=== PATIENT | male | born 1960 | race Two or more races ===

== ENCOUNTER 2021-11-18 11:08 | Inpatient (IN) | payer MEDICAID ==
[~2021-11-18] VITALS: Ht 165.1 cm; Wt 77.1 kg
[2021-11-18 11:52] LABS: BASOPHILS % 0.7 % (0.0-2.0); EOSINOPHILS % 0.3 % (0.0-5.0); HEMATOCRIT. 33.9 % (42.0-52.0); HEMOGLOBIN. 11.5 g/dL (14.0-18.0); LYMPHOCYTES % 19.6 % (20.0-50.0); MEAN CORPUSCULAR HEMOGLOBIN 33.8 pg (28.0-32.0); MEAN CORPUSCULAR VOLUME 99.4 fL (80.0-94.0); MEAN PLATELET VOLUME 8.3 fl (7.4-10.4); MONOCYTES % 6.2 % (2.0-8.0); NEUTROPHILS % 73.2 % (40.0-76.0); PLATELET 245 x1000/uL (130-400); RED BLOOD CELL COUNT 3.41 mill/uL (4.7-6.1)
[2021-11-18 12:00] LABS: CHLORIDE 98 mEq/L (98-107)
[2021-11-18 13:46] LABS: CLARITY URINE TURBID (CLEAR); COLOR URINE YELLOW (YELLOW); KETONES URINE NEGATIVE (NEGATIVE); LEUKOCYTE ESTERASE URINE 3+ (NEGATIVE); NITRITE URINE NEGATIVE (NEGATIVE); OCCULT BLOOD URINE 2+ (NEGATIVE); PH URINE >=9.0 (4.5-8.0); PROTEIN URINE 3+ (NEGATIVE); SPECIFIC GRAVITY URINE 1.013 (1.005-1.030); UROBILINOGEN URINE 0.2 E.U./dL (0.2-1.0)
[2021-11-18] MEDS ORDERED: IPRATROPIUM/ALBUTEROL 0.5-3(2.5)MG/3ML NEB HHN PRN (15:15)
[2021-11-18] MEDS ORDERED: DIPHENHYDRAMINE 50MG/ML VIAL IV PRN (15:15)
[2021-11-18] MEDS ORDERED: ONDANSETRON HCL 4MG/2ML INJ IV PRN (15:15)
[2021-11-18] MEDS ORDERED: CEFTRIAXONE 1 G PREMIX 50 ML IV SCH (15:15)
[2021-11-18] MEDS ORDERED: ACETAMINOPHEN 325MG TABLET PO PRN (15:15)
[2021-11-18] MEDS: CEFTRIAXONE 1 G PREMIX 50 ML IV NR ×2 (15:24→18:00)
[2021-11-18 18:36] VITALS: BP 142/74
[2021-11-18 19:25] VITALS: BP 142/74
[2021-11-18] MEDS ORDERED: LORAZEPAM 2MG/ML CPJ IV SCH (22:45)
[2021-11-19] VITALS: BP 136/72
[2021-11-19 04:00] VITALS: BP 128/74
[2021-11-19 07:38] LABS: BASOPHILS % 0.5 % (0.0-2.0); EOSINOPHILS % 0.7 % (0.0-5.0); HEMATOCRIT. 36.1 % (42.0-52.0); HEMOGLOBIN. 12.1 g/dL (14.0-18.0); LYMPHOCYTES % 20.8 % (20.0-50.0); MEAN CORPUSCULAR HEMOGLOBIN 32.8 pg (28.0-32.0); MEAN CORPUSCULAR VOLUME 97.9 fL (80.0-94.0); MEAN PLATELET VOLUME 8.5 fl (7.4-10.4); MONOCYTES % 7.3 % (2.0-8.0); NEUTROPHILS % 70.7 % (40.0-76.0); PLATELET 217 x1000/uL (130-400); RED BLOOD CELL COUNT 3.69 mill/uL (4.7-6.1); RED CELL DISTRIBUTION WIDTH 16.6 % (11.6-14.6)
[2021-11-19 07:53] LABS: CHLORIDE 103 mEq/L (98-107)
[2021-11-19 08:00] VITALS: BP 126/73
[2021-11-19 10:18] LABS: FOLIC ACID (FOLATE) SERUM >20 ng/mL ng/mL (>5.38)
[2021-11-19 10:29] LABS: VITAMIN B12 SERUM 1023 pg/mL (211-911)
[2021-11-19 12:00] VITALS: BP 144/68
[2021-11-19 12:57] LABS: HEPATITIS B SURFACE ANTIGEN NEGATIVE
[2021-11-19] MEDS ORDERED: FLUPHENAZINE DECANOATE 25 MG/ML 5ML VIAL IM SCH (13:00)
[2021-11-19 13:05] LABS: HEPATITIS B SURFACE AB 14.2 mIU/mL
[2021-11-19 16:00] VITALS: BP 134/77
[2021-11-19] MEDS: CLONAZEPAM 0.5MG TABLET PO SCH (22:00)
[2021-11-20] MEDS: CLONAZEPAM 0.5MG TABLET PO SCH ×3 (05:00→22:57)
[2021-11-20 07:53] LABS: BASOPHILS % 0.5 % (0.0-2.0); EOSINOPHILS % 1.1 % (0.0-5.0); HEMATOCRIT. 26.1 % (42.0-52.0); LYMPHOCYTES % 24.3 % (20.0-50.0); MEAN CORPUSCULAR HEMOGLOBIN 33.6 pg (28.0-32.0); MEAN CORPUSCULAR VOLUME 97.2 fL (80.0-94.0); MEAN PLATELET VOLUME 8.7 fl (7.4-10.4); MONOCYTES % 9.3 % (2.0-8.0); NEUTROPHILS % 64.8 % (40.0-76.0); PLATELET 167 x1000/uL (130-400); RED BLOOD CELL COUNT 2.69 mill/uL (4.7-6.1); RED CELL DISTRIBUTION WIDTH 16.4 % (11.6-14.6)
[2021-11-20] MEDS ORDERED: POTASSIUM CHLORIDE 20MEQ TABLET SR PO SCH (10:30)
[2021-11-20] MEDS: CEFTRIAXONE 1,000 MG in DEXTROSE 5% WATER 50 ML IV SCH (11:18)
[2021-11-20 12:00] VITALS: BP 139/86
[2021-11-20 14:00] VITALS: BP 135/78
[2021-11-20 15:38] LABS: HEMOGLOBIN 9.5 g/dL (14.0-18.0)
[2021-11-20 16:00] VITALS: BP 135/78
[2021-11-20] MEDS: CLONIDINE 0.1MG TABLET PO PRN (18:39)
[2021-11-20] MEDS: SERTRALINE HCL 25MG TABLET PO SCH ×2 (18:45→18:47)
[2021-11-20] MEDS: DEXT 5%/0.45% NACL 1000ML 1,000 ML IV SCH ×3 (18:45→18:50)
[2021-11-20 20:00] VITALS: BP 129/76
[2021-11-21] VITALS: BP 138/80
[2021-11-21 04:00] VITALS: BP 139/71
[2021-11-21] MEDS: CLONAZEPAM 0.5MG TABLET PO SCH ×3 (06:00→21:12)
[2021-11-21 08:00] VITALS: BP 110/74
[2021-11-21 09:18] LABS: BASOPHILS % 0.4 % (0.0-2.0); EOSINOPHILS % 1.6 % (0.0-5.0); HEMATOCRIT. 29.6 % (42.0-52.0); HEMOGLOBIN. 10.1 g/dL (14.0-18.0); LYMPHOCYTES % 23.6 % (20.0-50.0); MEAN CORPUSCULAR HEMOGLOBIN 33.2 pg (28.0-32.0); MEAN CORPUSCULAR VOLUME 97.5 fL (80.0-94.0); MEAN PLATELET VOLUME 8.5 fl (7.4-10.4); NEUTROPHILS % 62.4 % (40.0-76.0); PLATELET 191 x1000/uL (130-400); RED BLOOD CELL COUNT 3.03 mill/uL (4.7-6.1); RED CELL DISTRIBUTION WIDTH 16.9 % (11.6-14.6)
[2021-11-21] MEDS: SERTRALINE HCL 25MG TABLET PO SCH (09:34)
[2021-11-21] MEDS: CEFTRIAXONE 1,000 MG in DEXTROSE 5% WATER 50 ML IV SCH (09:35)
[2021-11-21 12:00] VITALS: BP 129/59
[2021-11-21] MEDS: DEXT 5%/0.45% NACL 1000ML 1,000 ML IV SCH (14:00)
[2021-11-21 16:00] VITALS: BP 140/62
[2021-11-21 20:00] VITALS: BP 127/74
[2021-11-21] MEDS: HALOPERIDOL LACTATE 5MG/ML VIAL IM PRN (23:44)
[2021-11-22] VITALS: BP 124/76
[2021-11-22 04:00] VITALS: BP 126/79
[2021-11-22] MEDS: DEXT 5%/0.45% NACL 1000ML 1,000 ML IV SCH (04:10)
[2021-11-22] MEDS: CLONAZEPAM 0.5MG TABLET PO SCH ×3 (05:52→23:24)
[2021-11-22 08:00] VITALS: BP 127/100
[2021-11-22] MEDS: SERTRALINE HCL 25MG TABLET PO SCH (09:16)
[2021-11-22] MEDS: CEFTRIAXONE 1,000 MG in DEXTROSE 5% WATER 50 ML IV SCH (09:16)
[2021-11-22 09:28] LABS: BASOPHILS % 0.5 % (0.0-2.0); EOSINOPHILS % 1.7 % (0.0-5.0); HEMATOCRIT. 32.2 % (42.0-52.0); HEMOGLOBIN. 10.4 g/dL (14.0-18.0); LYMPHOCYTES % 30.8 % (20.0-50.0); MEAN CORPUSCULAR HEMOGLOBIN 32.6 pg (28.0-32.0); MEAN CORPUSCULAR VOLUME 100.7 fL (80.0-94.0); MEAN PLATELET VOLUME 8.4 fl (7.4-10.4); PLATELET 189 x1000/uL (130-400); RED CELL DISTRIBUTION WIDTH 16.8 % (11.6-14.6)
[2021-11-22 12:00] VITALS: BP 131/66
[2021-11-22 16:00] VITALS: BP 134/81
[2021-11-22] MEDS: HALOPERIDOL LACTATE 5MG/ML VIAL IM PRN (18:21)
[2021-11-22 20:00] VITALS: BP 99/61
[2021-11-23 04:00] VITALS: BP 99/61
[2021-11-23] MEDS: CLONAZEPAM 0.5MG TABLET PO SCH ×3 (06:35→22:05)
[2021-11-23 08:00] VITALS: BP 111/60
[2021-11-23] MEDS: SERTRALINE HCL 25MG TABLET PO SCH (09:22)
[2021-11-23 12:24] VITALS: BP 125/62
[2021-11-23] MEDS: HALOPERIDOL LACTATE 5MG/ML VIAL IM PRN ×2 (13:33→14:45)
[2021-11-23 16:00] VITALS: BP 135/84
[2021-11-23] MEDS ORDERED: LORAZEPAM 1MG TABLET PO PRN (16:45)
[2021-11-23] MEDS: LORAZEPAM 2MG/ML CPJ IM PRN (18:08)
[2021-11-23 20:00] VITALS: BP 135/75
[2021-11-24] VITALS: BP 169/92
[2021-11-24] MEDS: CLONIDINE 0.1MG TABLET PO PRN ×2 (01:08→06:10)
[2021-11-24] MEDS: HALOPERIDOL LACTATE 5MG/ML VIAL IM PRN (01:13)
[2021-11-24 04:00] VITALS: BP 150/66
[2021-11-24] MEDS: LORAZEPAM 2MG/ML CPJ IM PRN ×4 (04:13→22:14)
[2021-11-24] MEDS: CLONAZEPAM 0.5MG TABLET PO SCH ×2 (06:06→14:11)
[2021-11-24 06:08] LABS: BASOPHILS % 0.4 % (0.0-2.0); EOSINOPHILS % 1.8 % (0.0-5.0); HEMATOCRIT. 29.3 % (42.0-52.0); HEMOGLOBIN. 9.9 g/dL (14.0-18.0); LYMPHOCYTES % 26.5 % (20.0-50.0); MEAN CORPUSCULAR HEMOGLOBIN 33.3 pg (28.0-32.0); MEAN CORPUSCULAR VOLUME 98.9 fL (80.0-94.0); NEUTROPHILS % 60.3 % (40.0-76.0); PLATELET 184 x1000/uL (130-400); RED BLOOD CELL COUNT 2.96 mill/uL (4.7-6.1); RED CELL DISTRIBUTION WIDTH 16.6 % (11.6-14.6)
[2021-11-24 08:00] VITALS: BP 90/58
[2021-11-24] MEDS: SERTRALINE HCL 50MG TABLET PO SCH (09:47)
[2021-11-24 12:00] VITALS: BP_SYST 92; BP_SYST 94; BP_DIAS 53; BP_DIAS 63
[2021-11-24] MEDS: NICOTINE 21MG PATCH TD SCH (14:12)
[2021-11-24 16:00] VITALS: BP 92/53
[2021-11-24 20:00] VITALS: BP 143/85
[2021-11-25] VITALS: BP 144/81
[2021-11-25] MEDS: EPOETIN ALFA 10000UNITS/ML VIAL SUBCUT SCH (03:05)
[2021-11-25 04:00] VITALS: BP 125/76
[2021-11-25] MEDS: HALOPERIDOL LACTATE 5MG/ML VIAL IM PRN ×2 (06:12→16:31)
[2021-11-25 08:00] VITALS: BP 144/52
[2021-11-25] MEDS: SERTRALINE HCL 50MG TABLET PO SCH (08:48)
[2021-11-25] MEDS: LORAZEPAM 2MG/ML CPJ IM PRN (09:04)
[2021-11-25 12:00] VITALS: BP 135/88
[2021-11-25] MEDS: RISPERIDONE 0.25MG TABLET PO SCH ×2 (13:52→21:03)
[2021-11-25 16:00] VITALS: BP 140/81
[2021-11-25 18:25] LABS: BASOPHILS % 0.4 % (0.0-2.0); EOSINOPHILS % 0.5 % (0.0-5.0); HEMATOCRIT. 31.9 % (42.0-52.0); HEMOGLOBIN. 10.6 g/dL (14.0-18.0); MEAN CORPUSCULAR HEMOGLOBIN 33.1 pg (28.0-32.0); MEAN CORPUSCULAR VOLUME 99.7 fL (80.0-94.0); MEAN PLATELET VOLUME 7.9 fl (7.4-10.4); MONOCYTES % 9.7 % (2.0-8.0); NEUTROPHILS % 70.4 % (40.0-76.0); PLATELET 202 x1000/uL (130-400); RED CELL DISTRIBUTION WIDTH 16.6 % (11.6-14.6)
[2021-11-25 20:00] VITALS: BP 134/80
[2021-11-26] VITALS: BP 110/57
[2021-11-26 04:00] VITALS: BP 118/59
[2021-11-26 08:00] VITALS: BP 134/75
[2021-11-26 09:15] LABS: BASOPHILS % 0.5 % (0.0-2.0); EOSINOPHILS % 0.6 % (0.0-5.0); HEMATOCRIT. 31.4 % (42.0-52.0); HEMOGLOBIN. 10.4 g/dL (14.0-18.0); LYMPHOCYTES % 22.4 % (20.0-50.0); MEAN CORPUSCULAR HEMOGLOBIN 33.1 pg (28.0-32.0); MEAN CORPUSCULAR VOLUME 99.3 fL (80.0-94.0); MEAN PLATELET VOLUME 7.8 fl (7.4-10.4); MONOCYTES % 9.7 % (2.0-8.0); NEUTROPHILS % 66.8 % (40.0-76.0); PLATELET 202 x1000/uL (130-400); RED BLOOD CELL COUNT 3.16 mill/uL (4.7-6.1); RED CELL DISTRIBUTION WIDTH 16.2 % (11.6-14.6)
[2021-11-26] MEDS: SERTRALINE HCL 50MG TABLET PO SCH (09:58)
[2021-11-26] MEDS: NICOTINE 21MG PATCH TD SCH (09:59)
[2021-11-26] MEDS ORDERED: GENTAMICIN 120MG PREMIX 100 ML IV NR (10:00)
[2021-11-26] MEDS: RISPERIDONE 0.5MG TABLET PO SCH ×2 (10:03→20:55)
[2021-11-26 12:00] VITALS: BP 133/80
[2021-11-26 16:00] VITALS: BP 132/52
[2021-11-26] MEDS: HALOPERIDOL LACTATE 5MG/ML VIAL IM PRN (16:14)
[2021-11-26] MEDS: LORAZEPAM 2MG/ML CPJ IM PRN (20:50)
[2021-11-26] MEDS: EPOETIN ALFA 10000UNITS/ML VIAL SUBCUT SCH (20:51)
[2021-11-27] VITALS: BP 101/65
[2021-11-27 04:00] VITALS: BP 116/59
[2021-11-27] MEDS: LORAZEPAM 2MG/ML CPJ IM PRN (05:18)
[2021-11-27] MEDS: RISPERIDONE 0.5MG TABLET PO SCH ×2 (08:58→21:19)
[2021-11-27] MEDS: SERTRALINE HCL 50MG TABLET PO SCH (08:58)
[2021-11-27 11:33] LABS: BASOPHILS % 0.4 % (0.0-2.0); EOSINOPHILS % 0.7 % (0.0-5.0); HEMATOCRIT. 29.7 % (42.0-52.0); LYMPHOCYTES % 24.3 % (20.0-50.0); MEAN CORPUSCULAR HEMOGLOBIN 34.1 pg (28.0-32.0); MEAN PLATELET VOLUME 7.9 fl (7.4-10.4); MONOCYTES % 9.6 % (2.0-8.0); PLATELET 183 x1000/uL (130-400); RED BLOOD CELL COUNT 2.94 mill/uL (4.7-6.1); RED CELL DISTRIBUTION WIDTH 16.4 % (11.6-14.6)
[2021-11-27 12:00] VITALS: BP 113/70
[2021-11-27] MEDS: HALOPERIDOL LACTATE 5MG/ML VIAL IM PRN (12:36)
[2021-11-27 16:00] VITALS: BP 124/73
[2021-11-27 20:00] VITALS: BP 136/74
[2021-11-28] VITALS: BP 132/70
[2021-11-28] MEDS: LORAZEPAM 2MG/ML CPJ IM PRN ×2 (02:02→22:21)
[2021-11-28 04:00] VITALS: BP 130/68
[2021-11-28] MEDS: SERTRALINE HCL 50MG TABLET PO SCH (09:25)
[2021-11-28] MEDS: NICOTINE 21MG PATCH TD SCH (09:25)
[2021-11-28 12:00] VITALS: BP 116/68
[2021-11-28 16:00] VITALS: BP 137/92
[2021-11-28 17:34] LABS: BASOPHILS % 0.3 % (0.0-2.0); EOSINOPHILS % 0.8 % (0.0-5.0); HEMOGLOBIN. 9.9 g/dL (14.0-18.0); LYMPHOCYTES % 21.1 % (20.0-50.0); MEAN CORPUSCULAR HEMOGLOBIN 33.9 pg (28.0-32.0); MEAN PLATELET VOLUME 7.6 fl (7.4-10.4); MONOCYTES % 9.2 % (2.0-8.0); NEUTROPHILS % 68.6 % (40.0-76.0); PLATELET 195 x1000/uL (130-400); RED CELL DISTRIBUTION WIDTH 16.3 % (11.6-14.6)
[2021-11-28 18:52] LABS: GENTAMICIN RANDOM 0.7 ug/mL
[2021-11-28 20:00] VITALS: BP 144/83
[2021-11-28] MEDS ORDERED: GENTAMICIN 80MG PREMIX 100 ML IV SCH (21:00)
[2021-11-28] MEDS: RISPERIDONE 1MG TABLET PO SCH (21:00)
[2021-11-29] MEDS: EPOETIN ALFA-EPBX 10,000 UNIT/ML VIAL SUBCUT SCH (06:48)
[2021-11-29 08:00] VITALS: BP 113/53
[2021-11-29] MEDS: RISPERIDONE 1MG TABLET PO SCH ×2 (09:48→21:42)
[2021-11-29] MEDS: SERTRALINE HCL 50MG TABLET PO SCH (09:48)
[2021-11-29] MEDS: NICOTINE 21MG PATCH TD SCH (09:49)
[2021-11-29 12:00] VITALS: BP 126/66
[2021-11-29] MEDS ORDERED: GENTAMICIN 80MG PREMIX 100 ML IV SCH (12:00)
[2021-11-29 16:00] VITALS: BP 137/57
[2021-11-29 20:00] VITALS: BP 164/86
[2021-11-29] MEDS: CLONIDINE 0.1MG TABLET PO PRN (22:26)
[2021-11-30 08:00] VITALS: BP 127/74
[2021-11-30] MEDS: SERTRALINE HCL 50MG TABLET PO SCH (09:01)
[2021-11-30] MEDS: RISPERIDONE 1MG TABLET PO SCH ×2 (09:02→21:45)
[2021-11-30] MEDS: NICOTINE 21MG PATCH TD SCH (09:02)
[2021-11-30 12:00] VITALS: BP 109/61
[2021-11-30] MEDS: ZIPRASIDONE HCL 20MG CAPSULE PO SCH ×2 (14:24→21:44)
[2021-11-30 16:00] VITALS: BP 130/56
[2021-11-30 16:08] LABS: BASOPHILS % 0.3 % (0.0-2.0); EOSINOPHILS % 1.1 % (0.0-5.0); HEMATOCRIT. 27.8 % (42.0-52.0); HEMOGLOBIN. 9.3 g/dL (14.0-18.0); LYMPHOCYTES % 22.6 % (20.0-50.0); MEAN CORPUSCULAR HEMOGLOBIN 34.2 pg (28.0-32.0); MEAN PLATELET VOLUME 7.4 fl (7.4-10.4); MONOCYTES % 8.5 % (2.0-8.0); NEUTROPHILS % 67.5 % (40.0-76.0); PLATELET 180 x1000/uL (130-400); RED BLOOD CELL COUNT 2.73 mill/uL (4.7-6.1); RED CELL DISTRIBUTION WIDTH 16.8 % (11.6-14.6)
[2021-11-30 20:00] VITALS: BP 123/85
[2021-11-30] MEDS: CLONIDINE 0.1MG TABLET PO PRN (21:45)
[2021-12-01] VITALS: BP 119/76
[2021-12-01 07:07] LABS: BASOPHILS % 0.2 % (0.0-2.0); EOSINOPHILS % 1.7 % (0.0-5.0); HEMATOCRIT. 27.6 % (42.0-52.0); HEMOGLOBIN. 9.2 g/dL (14.0-18.0); LYMPHOCYTES % 26.2 % (20.0-50.0); MEAN CORPUSCULAR HEMOGLOBIN 33.9 pg (28.0-32.0); MEAN CORPUSCULAR VOLUME 101.8 fL (80.0-94.0); MEAN PLATELET VOLUME 7.5 fl (7.4-10.4); NEUTROPHILS % 62.9 % (40.0-76.0); PLATELET 187 x1000/uL (130-400); RED BLOOD CELL COUNT 2.71 mill/uL (4.7-6.1); RED CELL DISTRIBUTION WIDTH 16.4 % (11.6-14.6)
[2021-12-01 08:00] VITALS: BP 98/54
[2021-12-01 08:21] LABS: GENTAMICIN RANDOM 0.3 ug/mL
[2021-12-01] MEDS: ZIPRASIDONE HCL 20MG CAPSULE PO SCH ×2 (08:53→21:00)
[2021-12-01] MEDS: NICOTINE 21MG PATCH TD SCH (08:53)
[2021-12-01] MEDS: SERTRALINE HCL 50MG TABLET PO SCH (08:53)
[2021-12-01] MEDS: RISPERIDONE 1MG TABLET PO SCH ×2 (08:53→21:00)
[2021-12-01 12:00] VITALS: BP 93/52
[2021-12-01] MEDS: GENTAMICIN SULF 40MG/ML 2ML VIAL IM SCH ×2 (14:00→14:43)
[2021-12-01] MEDS ORDERED: GENTAMICIN 100MG PREMIX 50 ML IV SCH (14:00)
[2021-12-01 16:00] VITALS: BP 103/64
[2021-12-01 20:00] VITALS: BP 130/65
[2021-12-01] MEDS: EPOETIN ALFA-EPBX 10,000 UNIT/ML VIAL SUBCUT SCH (21:00)
[2021-12-02] VITALS: BP 124/62
[2021-12-02 04:00] VITALS: BP 121/68
[2021-12-02] MEDS ORDERED: HALOPERIDOL LACTATE 5MG/ML VIAL IM SCH (08:15)
[2021-12-02] MEDS: LORAZEPAM 2MG/ML CPJ IM PRN (08:21)
[2021-12-02] MEDS: ZIPRASIDONE HCL 20MG CAPSULE PO SCH ×2 (09:08→21:00)
[2021-12-02] MEDS: SERTRALINE HCL 50MG TABLET PO SCH (09:08)
[2021-12-02] MEDS: NICOTINE 21MG PATCH TD SCH (09:09)
[2021-12-02] MEDS: RISPERIDONE 1MG TABLET PO SCH ×2 (09:09→21:00)
[2021-12-02 12:00] VITALS: BP 126/67
[2021-12-02 16:00] VITALS: BP 145/66
[2021-12-02 20:00] VITALS: BP 157/81
[2021-12-03] VITALS: BP 154/75
[2021-12-03 08:00] VITALS: BP 132/63
[2021-12-03] MEDS: NICOTINE 21MG PATCH TD SCH (09:00)
[2021-12-03] MEDS: RISPERIDONE 1MG TABLET PO SCH (09:00)
[2021-12-03] MEDS: SERTRALINE HCL 50MG TABLET PO SCH (09:00)
[2021-12-03 10:57] LABS: HEMATOCRIT. 24.6 % (42.0-52.0); HEMOGLOBIN. 8.5 g/dL (14.0-18.0); MEAN CORPUSCULAR HEMOGLOBIN 34.4 pg (28.0-32.0); MEAN CORPUSCULAR VOLUME 100.1 fL (80.0-94.0); PLATELET 146 x1000/uL (130-400); RED BLOOD CELL COUNT 2.46 mill/uL (4.7-6.1); RED CELL DISTRIBUTION WIDTH 16.5 % (11.6-14.6)
[2021-12-03 12:00] VITALS: BP 138/50
[2021-12-03 12:07] LABS: PLATELET ESTIMATE NORMAL
[2021-12-03 16:00] VITALS: BP 148/90
[2021-12-03 16:31] LABS: HEMATOCRIT 27.3 % (42.0-52.0); HEMOGLOBIN 9.1 g/dL (14.0-18.0)
[2021-12-03] MEDS ORDERED: DILTIAZEM HCL 5MG/ML 5ML VIAL IV NR (17:00)
[2021-12-03 20:00] VITALS: BP 74/44
[2021-12-03] MEDS ORDERED: SODIUM CHLORIDE 0.9% 500 ML IV STA (21:15)
[2021-12-03] MEDS ORDERED: ALBUMIN HUMAN 25GM/100ML (25%) IV SCH (22:00)
[2021-12-04] VITALS (31 sets, daily range): BP systolic 76–180; BP diastolic 38–74
[2021-12-04] MEDS: EPOETIN ALFA-EPBX 10,000 UNIT/ML VIAL SUBCUT SCH (00:11)
[2021-12-04 06:25] LABS: BASOPHILS % 0.3 % (0.0-2.0); EOSINOPHILS % 0.1 % (0.0-5.0); HEMATOCRIT. 25.8 % (42.0-52.0); HEMOGLOBIN. 8.6 g/dL (14.0-18.0); LYMPHOCYTES % 8.1 % (20.0-50.0); MEAN CORPUSCULAR HEMOGLOBIN 34.2 pg (28.0-32.0); MEAN CORPUSCULAR VOLUME 102.9 fL (80.0-94.0); MEAN PLATELET VOLUME 7.6 fl (7.4-10.4); MONOCYTES % 9.7 % (2.0-8.0); NEUTROPHILS % 81.8 % (40.0-76.0); PLATELET 161 x1000/uL (130-400); RED BLOOD CELL COUNT 2.51 mill/uL (4.7-6.1)
[2021-12-04 07:19] LABS: T4 FREE 0.67 ng/dL (0.76-1.46)
[2021-12-04] MEDS: SERTRALINE HCL 50MG TABLET PO SCH ×2 (09:00→10:28)
[2021-12-04] MEDS: ZIPRASIDONE HCL 20MG CAPSULE PO SCH ×2 (09:00→20:49)
[2021-12-04] MEDS ORDERED: LEVOTHYROXINE SODIUM 25MCG TABLET PO SCH (09:00)
[2021-12-04] MEDS: DILTIAZEM HCL 30MG TABLET PO SCH ×4 (10:28→23:40)
[2021-12-04] MEDS: RISPERIDONE 1MG TABLET PO SCH ×2 (11:00→20:50)
[2021-12-04] MEDS: NICOTINE 21MG PATCH TD SCH (11:24)
[2021-12-04] MEDS: IRON SUCROSE COMPLEX 100 MG/5 ML ML IV SCH (13:52)
[2021-12-05] VITALS (13 sets, daily range): BP systolic 87–130; BP diastolic 36–76
[2021-12-05] MEDS: DILTIAZEM HCL 30MG TABLET PO SCH ×4 (05:35→23:39)
[2021-12-05 05:46] LABS: BASOPHILS % 0.1 % (0.0-2.0); EOSINOPHILS % 0.1 % (0.0-5.0); HEMOGLOBIN. 7.1 g/dL (14.0-18.0); LYMPHOCYTES % 11.4 % (20.0-50.0); MEAN CORPUSCULAR HEMOGLOBIN 34.6 pg (28.0-32.0); MEAN CORPUSCULAR VOLUME 99.3 fL (80.0-94.0); MEAN PLATELET VOLUME 8.2 fl (7.4-10.4); MONOCYTES % 12.4 % (2.0-8.0); PLATELET 125 x1000/uL (130-400); RED BLOOD CELL COUNT 2.05 mill/uL (4.7-6.1); RED CELL DISTRIBUTION WIDTH 16.4 % (11.6-14.6)
[2021-12-05 06:23] LABS: HEMATOCRIT. 20.3 % (42.0-52.0)
[2021-12-05] MEDS: LEVOTHYROXINE SODIUM 50MCG TABLET PO SCH (09:51)
[2021-12-05] MEDS: RISPERIDONE 1MG TABLET PO SCH ×2 (09:51→20:16)
[2021-12-05] MEDS: ZIPRASIDONE HCL 20MG CAPSULE PO SCH ×2 (09:51→20:16)
[2021-12-05] MEDS: NICOTINE 21MG PATCH TD SCH (09:52)
[2021-12-05] MEDS: IRON SUCROSE COMPLEX 100 MG/5 ML ML IV SCH (12:37)
[2021-12-05] MEDS: LORAZEPAM 2MG/ML CPJ IM PRN (20:17)
[2021-12-06] VITALS (7 sets, daily range): BP systolic 112–135; BP diastolic 51–81
[2021-12-06] MEDS: DILTIAZEM HCL 30MG TABLET PO SCH ×4 (05:25→23:23)
[2021-12-06 06:37] LABS: BASOPHILS % 0.1 % (0.0-2.0); EOSINOPHILS % 0.2 % (0.0-5.0); HEMATOCRIT. 25.8 % (42.0-52.0); HEMOGLOBIN. 8.6 g/dL (14.0-18.0); LYMPHOCYTES % 7.3 % (20.0-50.0); MEAN CORPUSCULAR HEMOGLOBIN 32.7 pg (28.0-32.0); MEAN CORPUSCULAR VOLUME 98.4 fL (80.0-94.0); MEAN PLATELET VOLUME 8.9 fl (7.4-10.4); MONOCYTES % 13.1 % (2.0-8.0); NEUTROPHILS % 79.3 % (40.0-76.0); PLATELET 165 x1000/uL (130-400); RED BLOOD CELL COUNT 2.62 mill/uL (4.7-6.1); RED CELL DISTRIBUTION WIDTH 18.6 % (11.6-14.6)
[2021-12-06] MEDS: ZIPRASIDONE HCL 20MG CAPSULE PO SCH ×2 (08:47→20:18)
[2021-12-06] MEDS: LEVOTHYROXINE SODIUM 50MCG TABLET PO SCH (08:47)
[2021-12-06] MEDS: RISPERIDONE 1MG TABLET PO SCH ×2 (08:48→20:18)
[2021-12-06] MEDS: NICOTINE 21MG PATCH TD SCH (08:49)
[2021-12-06] MEDS: SERTRALINE HCL 50MG TABLET PO SCH (08:49)
[2021-12-06] MEDS: DIVALPROEX SODIUM 250MG DR TABLET PO SCH ×2 (14:23→20:18)
[2021-12-06] MEDS: IRON SUCROSE COMPLEX 100 MG/5 ML ML IV SCH (15:39)
[2021-12-07] VITALS (7 sets, daily range): BP systolic 94–129; BP diastolic 48–81
[2021-12-07] MEDS: DILTIAZEM HCL 30MG TABLET PO SCH ×3 (06:00→17:24)
[2021-12-07] MEDS: RISPERIDONE 1MG TABLET PO SCH ×2 (09:31→21:05)
[2021-12-07] MEDS: ZIPRASIDONE HCL 20MG CAPSULE PO SCH ×2 (09:31→21:04)
[2021-12-07] MEDS: DIVALPROEX SODIUM 250MG DR TABLET PO SCH ×2 (09:31→21:04)
[2021-12-07] MEDS: NICOTINE 21MG PATCH TD SCH (09:31)
[2021-12-07] MEDS: LEVOTHYROXINE SODIUM 50MCG TABLET PO SCH (09:31)
[2021-12-07] MEDS: SERTRALINE HCL 50MG TABLET PO SCH (09:31)
[2021-12-07 14:54] LABS: HEPATITIS B SURFACE ANTIGEN NEGATIVE
[2021-12-07] MEDS ORDERED: FLUPHENAZINE DECANOATE 25 MG/ML 5ML VIAL IM NR (16:45)
[2021-12-07] MEDS: HALOPERIDOL LACTATE 5MG/ML VIAL IM PRN (17:24)
[2021-12-08] MEDS: HALOPERIDOL LACTATE 5MG/ML VIAL IM PRN (01:39)
[2021-12-08] MEDS: DILTIAZEM HCL 30MG TABLET PO SCH ×4 (06:00→18:00)
[2021-12-08 08:00] VITALS: BP 115/61
[2021-12-08] MEDS: DIVALPROEX SODIUM 250MG DR TABLET PO SCH ×2 (09:11→21:00)
[2021-12-08] MEDS: SERTRALINE HCL 50MG TABLET PO SCH (09:11)
[2021-12-08] MEDS: NICOTINE 21MG PATCH TD SCH (09:12)
[2021-12-08] MEDS: ZIPRASIDONE HCL 20MG CAPSULE PO SCH ×2 (09:12→21:00)
[2021-12-08] MEDS: LEVOTHYROXINE SODIUM 50MCG TABLET PO SCH (09:12)
[2021-12-08] MEDS: RISPERIDONE 1MG TABLET PO SCH ×2 (09:12→21:00)
[2021-12-08 12:00] VITALS: BP 101/59
[2021-12-08 16:00] VITALS: BP 109/54
[2021-12-08 16:13] LABS: BASOPHILS % 0.3 % (0.0-2.0); EOSINOPHILS % 0.3 % (0.0-5.0); HEMATOCRIT. 25.3 % (42.0-52.0); HEMOGLOBIN. 8.6 g/dL (14.0-18.0); LYMPHOCYTES % 10.6 % (20.0-50.0); MEAN CORPUSCULAR HEMOGLOBIN 33.2 pg (28.0-32.0); MEAN CORPUSCULAR VOLUME 97.7 fL (80.0-94.0); MEAN PLATELET VOLUME 8.4 fl (7.4-10.4); NEUTROPHILS % 81.8 % (40.0-76.0); PLATELET 293 x1000/uL (130-400); RED BLOOD CELL COUNT 2.59 mill/uL (4.7-6.1); RED CELL DISTRIBUTION WIDTH 18.2 % (11.6-14.6)
[2021-12-08 20:00] VITALS: BP 99/58
[2021-12-09] MEDS: HALOPERIDOL LACTATE 5MG/ML VIAL IM PRN ×2 (00:19→16:37)
[2021-12-09] MEDS: DILTIAZEM HCL 30MG TABLET PO SCH ×5 (06:00→23:56)
[2021-12-09] MEDS: LEVOTHYROXINE SODIUM 50MCG TABLET PO SCH (06:25)
[2021-12-09 08:00] VITALS: BP 98/77
[2021-12-09] MEDS: NICOTINE 21MG PATCH TD SCH (09:00)
[2021-12-09] MEDS: RISPERIDONE 1MG TABLET PO SCH ×2 (09:39→20:42)
[2021-12-09] MEDS: ZIPRASIDONE HCL 20MG CAPSULE PO SCH (09:39)
[2021-12-09] MEDS: SERTRALINE HCL 50MG TABLET PO SCH (09:39)
[2021-12-09 09:40] LABS: HEMATOCRIT. 28.1 % (42.0-52.0); HEMOGLOBIN. 9.3 g/dL (14.0-18.0); MEAN CORPUSCULAR HEMOGLOBIN 32.5 pg (28.0-32.0); MEAN CORPUSCULAR VOLUME 98.5 fL (80.0-94.0); MEAN PLATELET VOLUME 8.5 fl (7.4-10.4); PLATELET 361 x1000/uL (130-400); RED BLOOD CELL COUNT 2.85 mill/uL (4.7-6.1); RED CELL DISTRIBUTION WIDTH 18.5 % (11.6-14.6)
[2021-12-09] MEDS: DIVALPROEX SODIUM 250MG DR TABLET PO SCH ×2 (09:43→21:00)
[2021-12-09 10:15] LABS: PLATELET ESTIMATE NORMAL
[2021-12-09 11:26] LABS: INR 1.1; PARTIAL THROMBOPLASTIN TIME 28.4 sec (23.4-31.0); PROTHROMBIN TIME 11.6 sec (9.6-11.0)
[2021-12-09 12:00] VITALS: BP 113/80
[2021-12-09 16:00] VITALS: BP 132/80
[2021-12-09 20:00] VITALS: BP 93/57
[2021-12-09] MEDS: ZIPRASIDONE HCL 40MG CAPSULE PO SCH (20:43)
[2021-12-10] VITALS: BP 98/50
[2021-12-10] MEDS: HALOPERIDOL LACTATE 5MG/ML VIAL IM PRN ×2 (01:02→08:43)
[2021-12-10 04:00] VITALS: BP 99/54
[2021-12-10] MEDS: DILTIAZEM HCL 30MG TABLET PO SCH ×3 (06:00→17:30)
[2021-12-10] MEDS: LEVOTHYROXINE SODIUM 50MCG TABLET PO SCH (07:20)
[2021-12-10 08:00] VITALS: BP 119/75
[2021-12-10] MEDS ORDERED: CEFAZOLIN 1000MG PREMIX 50 ML IV NR (10:00)
[2021-12-10] MEDS ORDERED: LIDOCAINE HCL 1% 20ML VIAL (Pyxis) INJ ONE (10:04)
[2021-12-10] MEDS ORDERED: HEPARIN 1000 UNITS/ML 10ML ONE (10:04)
[2021-12-10] MEDS ORDERED: CEFAZOLIN 1000MG PREMIX 50 ML IV ONE (10:06)
[2021-12-10] MEDS ORDERED: PROPOFOL 200MG/20ML VIAL IV ONE (10:13)
[2021-12-10] MEDS ORDERED: GLYCOPYRROLATE 0.2 MG/ML 2ML VIAL ONE (11:02)
[2021-12-10] MEDS ORDERED: EPHEDRINE SULFATE 50MG/ML VIAL ONE (11:02)
[2021-12-10] MEDS ORDERED: VASOPRESSIN 20 UNIT/ML 1ML ONE (11:02)
[2021-12-10] MEDS ORDERED: CEFAZOLIN SODIUM 1000MG/VIAL ONE (11:02)
[2021-12-10] MEDS ORDERED: HALOPERIDOL LACTATE 5MG/ML VIAL IM NR (11:15)
[2021-12-10] MEDS: ZIPRASIDONE HCL 40MG CAPSULE PO SCH ×2 (14:17→21:37)
[2021-12-10] MEDS: RISPERIDONE 1MG TABLET PO SCH ×2 (14:17→21:37)
[2021-12-10] MEDS: DIVALPROEX SODIUM 250MG DR TABLET PO SCH ×2 (14:19→21:37)
[2021-12-10] MEDS: SERTRALINE HCL 50MG TABLET PO SCH (14:19)
[2021-12-10] MEDS: NICOTINE 21MG PATCH TD SCH (14:21)
[2021-12-10 16:00] VITALS: BP 123/66
[2021-12-10] MEDS: DOCUSATE SODIUM 100MG CAPSULE PO SCH (17:30)
[2021-12-10 20:00] VITALS: BP 100/52
[2021-12-11] VITALS (7 sets, daily range): BP systolic 86–125; BP diastolic 58–75
[2021-12-11] MEDS: DILTIAZEM HCL 30MG TABLET PO SCH ×4 (06:29→16:21)
[2021-12-11] MEDS: LEVOTHYROXINE SODIUM 50MCG TABLET PO SCH (06:29)
[2021-12-11 06:58] LABS: BASOPHILS % 0.2 % (0.0-2.0); EOSINOPHILS % 0.4 % (0.0-5.0); HEMATOCRIT. 26.5 % (42.0-52.0); HEMOGLOBIN. 9.1 g/dL (14.0-18.0); LYMPHOCYTES % 13.4 % (20.0-50.0); MEAN CORPUSCULAR HEMOGLOBIN 33.6 pg (28.0-32.0); MEAN PLATELET VOLUME 8.2 fl (7.4-10.4); MONOCYTES % 7.8 % (2.0-8.0); NEUTROPHILS % 78.2 % (40.0-76.0); PLATELET 362 x1000/uL (130-400); RED BLOOD CELL COUNT 2.71 mill/uL (4.7-6.1); RED CELL DISTRIBUTION WIDTH 17.7 % (11.6-14.6)
[2021-12-11] MEDS: DIVALPROEX SODIUM 250MG DR TABLET PO SCH ×2 (09:06→21:07)
[2021-12-11] MEDS: FOLIC ACID/VITAMIN B COMP W-C TABLET PO SCH (09:07)
[2021-12-11] MEDS: RISPERIDONE 1MG TABLET PO SCH ×2 (09:08→21:07)
[2021-12-11] MEDS: SERTRALINE HCL 50MG TABLET PO SCH (09:08)
[2021-12-11] MEDS: NICOTINE 21MG PATCH TD SCH (09:09)
[2021-12-11] MEDS: DOCUSATE SODIUM 100MG CAPSULE PO SCH ×2 (09:09→16:24)
[2021-12-11] MEDS: ZIPRASIDONE HCL 40MG CAPSULE PO SCH ×2 (09:11→21:07)
[2021-12-11] MEDS ORDERED: SODIUM CHLORIDE 0.9% 1,000 ML IV ONE (16:15)
[2021-12-12] VITALS: BP 140/75
[2021-12-12] MEDS: DILTIAZEM HCL 30MG TABLET PO SCH ×4 (02:05→18:52)
[2021-12-12 04:00] VITALS: BP 99/60
[2021-12-12] MEDS: LEVOTHYROXINE SODIUM 50MCG TABLET PO SCH (06:21)
[2021-12-12 07:09] LABS: HEMATOCRIT. 26.2 % (42.0-52.0); HEMOGLOBIN. 8.5 g/dL (14.0-18.0); MEAN CORPUSCULAR HEMOGLOBIN 32.5 pg (28.0-32.0); MEAN CORPUSCULAR VOLUME 100.6 fL (80.0-94.0); MEAN PLATELET VOLUME 7.9 fl (7.4-10.4); PLATELET 305 x1000/uL (130-400); RED CELL DISTRIBUTION WIDTH 18.5 % (11.6-14.6)
[2021-12-12 08:00] VITALS: BP 117/65
[2021-12-12] MEDS: ZIPRASIDONE HCL 40MG CAPSULE PO SCH ×2 (09:12→23:54)
[2021-12-12] MEDS: FOLIC ACID/VITAMIN B COMP W-C TABLET PO SCH (09:12)
[2021-12-12] MEDS: SERTRALINE HCL 50MG TABLET PO SCH (09:12)
[2021-12-12] MEDS: RISPERIDONE 1MG TABLET PO SCH ×2 (09:13→23:54)
[2021-12-12] MEDS: DIVALPROEX SODIUM 250MG DR TABLET PO SCH (09:13)
[2021-12-12] MEDS: DOCUSATE SODIUM 100MG CAPSULE PO SCH ×2 (09:13→17:00)
[2021-12-12] MEDS: NICOTINE 21MG PATCH TD SCH (09:14)
[2021-12-12] MEDS: HALOPERIDOL LACTATE 5MG/ML VIAL IM PRN ×2 (09:25→20:29)
[2021-12-12 09:33] LABS: PLATELET ESTIMATE NORMAL
[2021-12-12] MEDS: DIVALPROEX SODIUM 500MG DR TABLET PO SCH ×2 (10:09→23:54)
[2021-12-12 12:00] VITALS: BP 117/66
[2021-12-12] MEDS: LORAZEPAM 2MG/ML CPJ IV PRN (15:25)
[2021-12-12 16:00] VITALS: BP 93/50
[2021-12-12 20:00] VITALS: BP 98/56
[2021-12-13] VITALS: BP 91/55
[2021-12-13 04:00] VITALS: BP 95/53
[2021-12-13] MEDS: DILTIAZEM HCL 30MG TABLET PO SCH ×4 (06:00→18:17)
[2021-12-13] MEDS: LEVOTHYROXINE SODIUM 50MCG TABLET PO SCH (06:27)
[2021-12-13 08:00] VITALS: BP 90/55
[2021-12-13] MEDS: DIVALPROEX SODIUM 500MG DR TABLET PO SCH ×2 (08:54→21:53)
[2021-12-13] MEDS: SERTRALINE HCL 50MG TABLET PO SCH (08:54)
[2021-12-13] MEDS: DOCUSATE SODIUM 100MG CAPSULE PO SCH ×2 (08:54→18:17)
[2021-12-13] MEDS: FOLIC ACID/VITAMIN B COMP W-C TABLET PO SCH (08:54)
[2021-12-13] MEDS: NICOTINE 21MG PATCH TD SCH (08:55)
[2021-12-13] MEDS: ZIPRASIDONE HCL 40MG CAPSULE PO SCH ×2 (09:00→21:53)
[2021-12-13 12:00] VITALS: BP 105/57
[2021-12-13] MEDS: HALOPERIDOL LACTATE 5MG/ML VIAL IM PRN (13:01)
[2021-12-13] MEDS ORDERED: HYDROXYZINE 25MG TABLET PO PRN (14:30)
[2021-12-13 16:00] VITALS: BP 114/60
[2021-12-13] MEDS ORDERED: CEFEPIME 500 MG in DEXTROSE 5% WATER 50 ML IV SCH (17:30)
[2021-12-13 20:00] VITALS: BP 113/64
[2021-12-13] MEDS: CEFEPIME 500 MG in DEXTROSE 5% WATER 50 ML IV SCH (21:51)
[2021-12-13] MEDS: BENZTROPINE MESYLATE 1MG TABLET PO SCH (21:52)
[2021-12-13] MEDS: RISPERIDONE 1MG TABLET PO SCH (21:59)
[2021-12-14] VITALS: BP 121/86
[2021-12-14] MEDS: DILTIAZEM HCL 30MG TABLET PO SCH ×4 (00:26→18:09)
[2021-12-14] MEDS: HALOPERIDOL LACTATE 5MG/ML VIAL IM PRN ×2 (01:14→12:48)
[2021-12-14 04:00] VITALS: BP 121/86
[2021-12-14] MEDS: LEVOTHYROXINE SODIUM 50MCG TABLET PO SCH (06:27)
[2021-12-14 08:00] VITALS: BP 104/65
[2021-12-14] MEDS: ZIPRASIDONE HCL 40MG CAPSULE PO SCH ×2 (09:05→21:00)
[2021-12-14] MEDS: FOLIC ACID/VITAMIN B COMP W-C TABLET PO SCH (09:05)
[2021-12-14] MEDS: DOCUSATE SODIUM 100MG CAPSULE PO SCH ×2 (09:05→18:10)
[2021-12-14] MEDS: RISPERIDONE 1MG TABLET PO SCH ×2 (09:05→21:01)
[2021-12-14] MEDS: NICOTINE 21MG PATCH TD SCH (09:05)
[2021-12-14] MEDS: DIVALPROEX SODIUM 500MG DR TABLET PO SCH ×2 (09:05→21:00)
[2021-12-14] MEDS: SERTRALINE HCL 50MG TABLET PO SCH (09:05)
[2021-12-14 12:00] VITALS: BP 107/63
[2021-12-14] MEDS ORDERED: LIDOCAINE HCL 1% 10 MG/ML 10ML VIAL ONE (12:43)
[2021-12-14] MEDS: LORAZEPAM 2MG/ML CPJ IV PRN (12:48)
[2021-12-14 16:00] VITALS: BP 100/53
[2021-12-14 16:34] LABS: CLARITY URINE CLEAR (CLEAR); COLOR URINE YELLOW (YELLOW); KETONES URINE NEGATIVE (NEGATIVE); LEUKOCYTE ESTERASE URINE 3+ (NEGATIVE); NITRITE URINE NEGATIVE (NEGATIVE); OCCULT BLOOD URINE 1+ (NEGATIVE); PH URINE 7.5 (4.5-8.0); PROTEIN URINE 1+ (NEGATIVE); SPECIFIC GRAVITY URINE 1.005 (1.005-1.030); UROBILINOGEN URINE 0.2 E.U./dL (0.2-1.0)
[2021-12-14] MEDS: CEFEPIME 500 MG in DEXTROSE 5% WATER 50 ML IV SCH (18:10)
[2021-12-14 20:00] VITALS: BP 98/56
[2021-12-14] MEDS: BENZTROPINE MESYLATE 1MG TABLET PO SCH (21:00)
[2021-12-15] VITALS: BP 101/59
[2021-12-15 04:00] VITALS: BP 103/74
[2021-12-15] MEDS: DILTIAZEM HCL 30MG TABLET PO SCH ×4 (06:00→17:15)
[2021-12-15] MEDS: LEVOTHYROXINE SODIUM 50MCG TABLET PO SCH (06:51)
[2021-12-15] MEDS: LORAZEPAM 2MG/ML CPJ IV PRN ×3 (07:57→23:51)
[2021-12-15] MEDS: HALOPERIDOL LACTATE 5MG/ML VIAL IM PRN ×2 (07:57→23:52)
[2021-12-15 08:00] VITALS: BP 92/55
[2021-12-15] MEDS: DOCUSATE SODIUM 100MG CAPSULE PO SCH ×2 (09:40→17:00)
[2021-12-15] MEDS: FOLIC ACID/VITAMIN B COMP W-C TABLET PO SCH (09:41)
[2021-12-15] MEDS: SERTRALINE HCL 50MG TABLET PO SCH (09:41)
[2021-12-15] MEDS: DIVALPROEX SODIUM 500MG DR TABLET PO SCH ×2 (09:41→21:33)
[2021-12-15] MEDS: ZIPRASIDONE HCL 40MG CAPSULE PO SCH ×2 (09:42→21:33)
[2021-12-15] MEDS: NICOTINE 21MG PATCH TD SCH (09:42)
[2021-12-15] MEDS: RISPERIDONE 1MG TABLET PO SCH ×2 (09:42→21:33)
[2021-12-15 12:00] VITALS: BP 108/77
[2021-12-15 20:00] VITALS: BP 102/54
[2021-12-15] MEDS: BENZTROPINE MESYLATE 1MG TABLET PO SCH (21:33)
[2021-12-15] MEDS: CEFEPIME 1,000 MG in DEXTROSE 5% WATER 50 ML IV SCH (21:34)
[2021-12-16] VITALS: BP 103/58
[2021-12-16 04:00] VITALS: BP 115/56
[2021-12-16] MEDS: LEVOTHYROXINE SODIUM 50MCG TABLET PO SCH (06:38)
[2021-12-16] MEDS: DILTIAZEM HCL 30MG TABLET PO SCH ×4 (07:08→17:25)
[2021-12-16 07:46] LABS: PROTHROMBIN TIME 10.9 sec (9.6-11.0)
[2021-12-16 07:49] LABS: HEMATOCRIT. 26.6 % (42.0-52.0); HEMOGLOBIN. 8.9 g/dL (14.0-18.0); MEAN CORPUSCULAR VOLUME 99.1 fL (80.0-94.0); MEAN PLATELET VOLUME 7.9 fl (7.4-10.4); PLATELET 300 x1000/uL (130-400); RED BLOOD CELL COUNT 2.69 mill/uL (4.7-6.1); RED CELL DISTRIBUTION WIDTH 17.3 % (11.6-14.6)
[2021-12-16] MEDS: RISPERIDONE 1MG TABLET PO SCH ×2 (08:04→22:24)
[2021-12-16] MEDS: ZIPRASIDONE HCL 40MG CAPSULE PO SCH ×2 (08:04→22:23)
[2021-12-16] MEDS: FOLIC ACID/VITAMIN B COMP W-C TABLET PO SCH (08:04)
[2021-12-16] MEDS: SERTRALINE HCL 50MG TABLET PO SCH (08:04)
[2021-12-16] MEDS: NICOTINE 21MG PATCH TD SCH (08:04)
[2021-12-16] MEDS: DIVALPROEX SODIUM 500MG DR TABLET PO SCH ×2 (08:05→22:23)
[2021-12-16] MEDS: DOCUSATE SODIUM 100MG CAPSULE PO SCH ×2 (08:05→17:26)
[2021-12-16] MEDS ORDERED: LIDOCAINE HCL 1% 20ML VIAL (Pyxis) INJ ONE ×2 (10:01→11:39)
[2021-12-16] MEDS ORDERED: HEPARIN 1000 UNITS/ML 10ML ONE (10:01)
[2021-12-16] MEDS ORDERED: PROPOFOL 200MG/20ML VIAL IV ONE (11:39)
[2021-12-16] MEDS ORDERED: MIDAZOLAM HCL 2 MG/2 ML VIAL ONE (11:40)
[2021-12-16] MEDS ORDERED: FENTANYL CITRATE/PF 50MCG/ML 2ML VIAL ONE (11:40)
[2021-12-16] MEDS ORDERED: HYDROMORPHONE HCL/PF 2MG/ML CPJ IV PRN (12:15)
[2021-12-16] MEDS ORDERED: ONDANSETRON HCL 4MG/2ML INJ IV PRN (12:15)
[2021-12-16] MEDS ORDERED: LABETALOL 5MG/ML SYR 20 MG/4 ML SYRINGE IV PRN (12:15)
[2021-12-16] MEDS ORDERED: MEPERIDINE HCL/PF 25MG/ML CPJ IV PRN (12:15)
[2021-12-16 13:31] LABS: PLATELET ESTIMATE NORMAL
[2021-12-16 16:00] VITALS: BP 112/65
[2021-12-16] MEDS: LORAZEPAM 2MG/ML CPJ IV PRN (18:38)
[2021-12-16 20:00] VITALS: BP 102/57
[2021-12-16] MEDS: BENZTROPINE MESYLATE 1MG TABLET PO SCH (22:23)
[2021-12-16] MEDS: CEFEPIME 1,000 MG in DEXTROSE 5% WATER 50 ML IV SCH (22:24)
[2021-12-17] VITALS: BP 117/70
[2021-12-17] MEDS: DILTIAZEM HCL 30MG TABLET PO SCH ×4 (00:21→23:10)
[2021-12-17] MEDS: LORAZEPAM 2MG/ML CPJ IV PRN ×2 (00:22→08:58)
[2021-12-17 04:00] VITALS: BP 106/58
[2021-12-17 08:00] VITALS: BP 122/53
[2021-12-17] MEDS: FOLIC ACID/VITAMIN B COMP W-C TABLET PO SCH (08:40)
[2021-12-17] MEDS: ZIPRASIDONE HCL 40MG CAPSULE PO SCH ×2 (08:40→21:51)
[2021-12-17] MEDS: RISPERIDONE 1MG TABLET PO SCH ×2 (08:40→21:52)
[2021-12-17] MEDS: DOCUSATE SODIUM 100MG CAPSULE PO SCH ×2 (08:40→19:10)
[2021-12-17] MEDS: SERTRALINE HCL 50MG TABLET PO SCH (08:40)
[2021-12-17] MEDS: DIVALPROEX SODIUM 500MG DR TABLET PO SCH ×2 (08:41→21:51)
[2021-12-17] MEDS: LEVOTHYROXINE SODIUM 50MCG TABLET PO SCH (08:41)
[2021-12-17] MEDS: NICOTINE 21MG PATCH TD SCH (08:41)
[2021-12-17 12:00] VITALS: BP 107/54
[2021-12-17] MEDS ORDERED: COLISTIMETHATE SODIUM 300 MG in SODIUM CHLORIDE 0.9% 100 ML IV NR (13:00)
[2021-12-17 13:16] LABS: HEMATOCRIT. 25.3 % (42.0-52.0); HEMOGLOBIN. 8.4 g/dL (14.0-18.0); MEAN CORPUSCULAR HEMOGLOBIN 33.5 pg (28.0-32.0); MEAN CORPUSCULAR VOLUME 100.7 fL (80.0-94.0); MEAN PLATELET VOLUME 7.6 fl (7.4-10.4); PLATELET 231 x1000/uL (130-400); RED BLOOD CELL COUNT 2.51 mill/uL (4.7-6.1)
[2021-12-17] MEDS: CLONAZEPAM 0.5MG TABLET PO SCH ×2 (13:17→21:52)
[2021-12-17 16:00] VITALS: BP 118/79
[2021-12-17 17:01] LABS: PLATELET ESTIMATE NORMAL
[2021-12-17 20:00] VITALS: BP 122/65
[2021-12-17] MEDS: BENZTROPINE MESYLATE 1MG TABLET PO SCH (21:51)
[2021-12-18] VITALS: BP 104/67
[2021-12-18 04:00] VITALS: BP 96/60
[2021-12-18] MEDS: CLONAZEPAM 0.5MG TABLET PO SCH ×2 (06:12→14:36)
[2021-12-18] MEDS: DILTIAZEM HCL 30MG TABLET PO SCH ×3 (06:12→18:00)
[2021-12-18] MEDS: LEVOTHYROXINE SODIUM 50MCG TABLET PO SCH (07:11)
[2021-12-18 08:00] VITALS: BP 106/67
[2021-12-18 09:07] LABS: HEMATOCRIT. 24.5 % (42.0-52.0); MEAN CORPUSCULAR VOLUME 100.3 fL (80.0-94.0); PLATELET 200 x1000/uL (130-400); RED BLOOD CELL COUNT 2.44 mill/uL (4.7-6.1); RED CELL DISTRIBUTION WIDTH 17.4 % (11.6-14.6)
[2021-12-18] MEDS: DIVALPROEX SODIUM 500MG DR TABLET PO SCH (09:22)
[2021-12-18] MEDS: DOCUSATE SODIUM 100MG CAPSULE PO SCH ×2 (09:22→18:31)
[2021-12-18] MEDS: FOLIC ACID/VITAMIN B COMP W-C TABLET PO SCH (09:22)
[2021-12-18] MEDS: ZIPRASIDONE HCL 40MG CAPSULE PO SCH (09:22)
[2021-12-18] MEDS: RISPERIDONE 1MG TABLET PO SCH (09:23)
[2021-12-18] MEDS: NICOTINE 21MG PATCH TD SCH (09:23)
[2021-12-18] MEDS ORDERED: LORAZEPAM 2MG/ML CPJ IV PRN (11:45)
[2021-12-18] MEDS ORDERED: HALOPERIDOL LACTATE 5MG/ML VIAL IM NR (12:00)
[2021-12-18 16:00] VITALS: BP 112/61
[2021-12-18] MEDS: COLISTIMETHATE 150MG in SODIUM CHLORIDE 0.9% 100ML IV SCH (18:31)
[2021-12-18 20:00] VITALS: BP 101/59
[2021-12-18 22:49] LABS: PLATELET ESTIMATE NORMAL
[2021-12-19] VITALS: BP 101/59
[2021-12-19] MEDS: RISPERIDONE 1MG TABLET PO SCH ×3 (00:51→22:07)
[2021-12-19] MEDS: DIVALPROEX SODIUM 500MG DR TABLET PO SCH ×3 (00:51→22:07)
[2021-12-19] MEDS: ZIPRASIDONE HCL 40MG CAPSULE PO SCH ×3 (00:51→22:07)
[2021-12-19] MEDS: CLONAZEPAM 0.5MG TABLET PO SCH ×2 (00:53→06:09)
[2021-12-19] MEDS: BENZTROPINE MESYLATE 1MG TABLET PO SCH ×2 (00:58→22:07)
[2021-12-19 04:00] VITALS: BP 103/59
[2021-12-19] MEDS: DILTIAZEM HCL 30MG TABLET PO SCH ×4 (06:00→17:23)
[2021-12-19] MEDS: LEVOTHYROXINE SODIUM 50MCG TABLET PO SCH (06:09)
[2021-12-19 07:33] LABS: HEMOGLOBIN. 8.2 g/dL (14.0-18.0); MEAN CORPUSCULAR HEMOGLOBIN 32.8 pg (28.0-32.0); MEAN CORPUSCULAR VOLUME 100.1 fL (80.0-94.0); MEAN PLATELET VOLUME 7.8 fl (7.4-10.4); PLATELET 181 x1000/uL (130-400); RED CELL DISTRIBUTION WIDTH 18.1 % (11.6-14.6)
[2021-12-19 08:00] VITALS: BP 94/57
[2021-12-19] MEDS: FOLIC ACID/VITAMIN B COMP W-C TABLET PO SCH (09:16)
[2021-12-19] MEDS: NICOTINE 21MG PATCH TD SCH (09:17)
[2021-12-19] MEDS: DOCUSATE SODIUM 100MG CAPSULE PO SCH ×2 (09:17→17:22)
[2021-12-19 12:00] VITALS: BP 90/50
[2021-12-19] MEDS: CLONAZEPAM 1MG TABLET PO SCH ×2 (13:55→22:07)
[2021-12-19] MEDS: COLISTIMETHATE 150MG in SODIUM CHLORIDE 0.9% 100ML IV SCH (13:55)
[2021-12-19 16:00] VITALS: BP 95/50
[2021-12-19 20:00] VITALS: BP 92/50
[2021-12-19] MEDS ORDERED: EPOETIN ALFA-EPBX 10,000 UNIT/ML VIAL SUBCUT SCH (21:00)
[2021-12-19 22:51] LABS: PLATELET ESTIMATE NORMAL
[2021-12-20] VITALS: BP 98/54
[2021-12-20 04:00] VITALS: BP 99/62
[2021-12-20] MEDS: DILTIAZEM HCL 30MG TABLET PO SCH ×4 (04:44→18:00)
[2021-12-20 08:00] VITALS: BP 104/50
[2021-12-20] MEDS: FOLIC ACID/VITAMIN B COMP W-C TABLET PO SCH (09:18)
[2021-12-20] MEDS: ZIPRASIDONE HCL 40MG CAPSULE PO SCH ×2 (09:18→21:51)
[2021-12-20] MEDS: LEVOTHYROXINE SODIUM 50MCG TABLET PO SCH (09:18)
[2021-12-20] MEDS: DOCUSATE SODIUM 100MG CAPSULE PO SCH ×2 (09:18→17:00)
[2021-12-20] MEDS: DIVALPROEX SODIUM 500MG DR TABLET PO SCH ×2 (09:18→21:51)
[2021-12-20] MEDS: RISPERIDONE 1MG TABLET PO SCH ×2 (09:19→21:51)
[2021-12-20] MEDS: NICOTINE 21MG PATCH TD SCH (09:19)
[2021-12-20] MEDS: CLONAZEPAM 1MG TABLET PO SCH ×3 (09:21→21:51)
[2021-12-20 12:00] VITALS: BP 108/55
[2021-12-20 16:07] LABS: HEMATOCRIT. 23.1 % (42.0-52.0); HEMOGLOBIN. 7.5 g/dL (14.0-18.0); MEAN CORPUSCULAR HEMOGLOBIN 32.7 pg (28.0-32.0); MEAN CORPUSCULAR VOLUME 100.7 fL (80.0-94.0); MEAN PLATELET VOLUME 7.7 fl (7.4-10.4); PLATELET 142 x1000/uL (130-400); RED CELL DISTRIBUTION WIDTH 17.9 % (11.6-14.6)
[2021-12-20 16:48] LABS: PLATELET ESTIMATE NORMAL
[2021-12-20 17:55] VITALS: BP 100/56
[2021-12-20] MEDS: COLISTIMETHATE 150MG in SODIUM CHLORIDE 0.9% 100ML IV SCH (18:32)
[2021-12-20 20:00] VITALS: BP 92/62
[2021-12-20] MEDS: BENZTROPINE MESYLATE 1MG TABLET PO SCH (21:50)
[2021-12-21] VITALS (7 sets, daily range): BP systolic 90–111; BP diastolic 50–63
[2021-12-21] MEDS: DILTIAZEM HCL 30MG TABLET PO SCH ×4 (05:30→17:17)
[2021-12-21] MEDS: LEVOTHYROXINE SODIUM 50MCG TABLET PO SCH (06:27)
[2021-12-21] MEDS: CLONAZEPAM 1MG TABLET PO SCH ×2 (06:27→15:26)
[2021-12-21] MEDS: DIVALPROEX SODIUM 500MG DR TABLET PO SCH (09:51)
[2021-12-21] MEDS: RISPERIDONE 1MG TABLET PO SCH (09:51)
[2021-12-21] MEDS: FOLIC ACID/VITAMIN B COMP W-C TABLET PO SCH (09:51)
[2021-12-21] MEDS: NICOTINE 21MG PATCH TD SCH (09:57)
[2021-12-21] MEDS: ZIPRASIDONE HCL 40MG CAPSULE PO SCH (09:57)
[2021-12-21] MEDS: DOCUSATE SODIUM 100MG CAPSULE PO SCH ×2 (09:58→16:52)
[2021-12-21 10:23] LABS: BASOPHILS % 0.5 % (0.0-2.0); EOSINOPHILS % 0.8 % (0.0-5.0); HEMATOCRIT. 24.5 % (42.0-52.0); LYMPHOCYTES % 24.5 % (20.0-50.0); MEAN CORPUSCULAR HEMOGLOBIN 32.9 pg (28.0-32.0); MEAN CORPUSCULAR VOLUME 100.5 fL (80.0-94.0); MEAN PLATELET VOLUME 7.9 fl (7.4-10.4); MONOCYTES % 13.6 % (2.0-8.0); NEUTROPHILS % 60.6 % (40.0-76.0); PLATELET 142 x1000/uL (130-400); RED BLOOD CELL COUNT 2.44 mill/uL (4.7-6.1); RED CELL DISTRIBUTION WIDTH 18.1 % (11.6-14.6)
[2021-12-21] MEDS: COLISTIMETHATE 150MG in SODIUM CHLORIDE 0.9% 100ML IV SCH (13:10)
[2021-12-21] MEDS: SODIUM POLYSTYRENE SULFONATE 15 G/60 ML BOT PO NR ×2 (15:27→15:45)
[2021-12-22] VITALS (49 sets, daily range): BP systolic 83–147; BP diastolic 34–89
[2021-12-22] MEDS: RISPERIDONE 1MG TABLET PO SCH ×3 (00:08→21:24)
[2021-12-22] MEDS: DIVALPROEX SODIUM 500MG DR TABLET PO SCH ×3 (00:09→21:24)
[2021-12-22] MEDS: CLONAZEPAM 1MG TABLET PO SCH ×4 (00:09→21:24)
[2021-12-22] MEDS: BENZTROPINE MESYLATE 1MG TABLET PO SCH ×2 (00:10→21:24)
[2021-12-22] MEDS: DILTIAZEM HCL 30MG TABLET PO SCH ×3 (00:23→18:00)
[2021-12-22] MEDS: ZIPRASIDONE HCL 40MG CAPSULE PO SCH ×3 (00:25→21:24)
[2021-12-22] MEDS: LEVOTHYROXINE SODIUM 50MCG TABLET PO SCH (06:29)
[2021-12-22 07:53] LABS: HEMATOCRIT. 22.5 % (42.0-52.0); HEMOGLOBIN. 7.4 g/dL (14.0-18.0); MEAN CORPUSCULAR HEMOGLOBIN 32.9 pg (28.0-32.0); MEAN CORPUSCULAR VOLUME 99.5 fL (80.0-94.0); MEAN PLATELET VOLUME 7.6 fl (7.4-10.4); PLATELET 110 x1000/uL (130-400); RED BLOOD CELL COUNT 2.26 mill/uL (4.7-6.1)
[2021-12-22] MEDS: DOCUSATE SODIUM 100MG CAPSULE PO SCH ×2 (09:00→18:04)
[2021-12-22] MEDS: FOLIC ACID/VITAMIN B COMP W-C TABLET PO SCH (09:00)
[2021-12-22] MEDS: NICOTINE 21MG PATCH TD SCH (09:00)
[2021-12-22] MEDS ORDERED: NOREPINEPHRINE 8 MG in DEXT 5% WATER 242 ML IV PRN (12:30)
[2021-12-22] MEDS ORDERED: LIDOCAINE HCL/PF 1% 10 MG/ML 5ML VIAL ONE (13:21)
[2021-12-22] MEDS: NOREPINEPHRINE 32 MG in DEXT 5% WATER 218 ML IV PRN (14:11)
[2021-12-22] MEDS: COLISTIMETHATE 150MG in SODIUM CHLORIDE 0.9% 100ML IV SCH (16:34)
[2021-12-22] MEDS: EPOETIN ALFA 10000UNITS/ML VIAL SUBCUT SCH (21:25)
[2021-12-23] VITALS (106 sets, daily range): BP systolic 49–190; BP diastolic 14–134
[2021-12-23 04:53] LABS: BASOPHILS % 0.2 % (0.0-2.0); EOSINOPHILS % 0.4 % (0.0-5.0); HEMATOCRIT. 24.6 % (42.0-52.0); HEMOGLOBIN. 8.2 g/dL (14.0-18.0); LYMPHOCYTES % 9.6 % (20.0-50.0); MEAN CORPUSCULAR VOLUME 98.8 fL (80.0-94.0); MEAN PLATELET VOLUME 7.7 fl (7.4-10.4); MONOCYTES % 10.9 % (2.0-8.0); NEUTROPHILS % 78.9 % (40.0-76.0); PLATELET 116 x1000/uL (130-400); RED BLOOD CELL COUNT 2.49 mill/uL (4.7-6.1)
[2021-12-23] MEDS: DILTIAZEM HCL 30MG TABLET PO SCH ×2 (05:04)
[2021-12-23] MEDS: LEVOTHYROXINE SODIUM 50MCG TABLET PO SCH (06:09)
[2021-12-23] MEDS: CLONAZEPAM 1MG TABLET PO SCH ×3 (06:09→21:28)
[2021-12-23] MEDS: DOCUSATE SODIUM 100MG CAPSULE PO SCH ×2 (09:00→17:00)
[2021-12-23] MEDS: RISPERIDONE 1MG TABLET PO SCH (09:00)
[2021-12-23] MEDS: FOLIC ACID/VITAMIN B COMP W-C TABLET PO SCH (09:00)
[2021-12-23] MEDS: ZIPRASIDONE HCL 40MG CAPSULE PO SCH ×2 (09:00→20:34)
[2021-12-23] MEDS: DIVALPROEX SODIUM 500MG DR TABLET PO SCH ×2 (09:00→20:34)
[2021-12-23] MEDS: PHENYLEPHRINE 50 MG in DEXT 5% WATER 245 ML IV PRN ×2 (11:59→15:04)
[2021-12-23] MEDS: MIDODRINE HCL 2.5MG TABLET PO SCH ×2 (13:00→17:00)
[2021-12-23] MEDS: DILTIAZEM HCL 5MG/ML 5ML VIAL IV SCH ×2 (13:35→21:28)
[2021-12-23] MEDS: COLISTIMETHATE 150MG in SODIUM CHLORIDE 0.9% 100ML IV SCH (15:03)
[2021-12-23 18:10] LABS: BG BASE EXCESS 2.1 mmol/L (-2.0-2.0); BG CARBOXYHEMOGLOBIN 0.2 % (0.5-1.5); BG DEOXYHEMOGLOBIN 20.1 % (0.0-5.0); BG FRACTION INSPIRED OXYGEN 36; BG HCO3 ACT 27.5 mmol/L (22.0-26.0); BG METHEMOGLOBIN 0.3 % (0.0-1.5); BG OXYGEN SATURATION 79.8 % (92.0-98.5); BG OXYHEMOGLOBIN 79.4 % (94.0-97.0); BG PCO2 46.8 mmHg (35.0-45.0); BG PH 7.387 (7.350-7.450); BG PO2 43.6 mmHg (75.0-100.0); BG SAMPLE SITE LEFT RADIAL; BG VENT MODE NASAL CANNULA
[2021-12-23] MEDS ORDERED: IPRATROPIUM BROMIDE (0.02%) 0.5MG/2.5ML NEB HHN PRN (18:15)
[2021-12-23] MEDS: NOREPINEPHRINE 32 MG in DEXT 5% WATER 218 ML IV PRN (20:00)
[2021-12-23 20:02] LABS: BG BASE EXCESS -0.2 mmol/L (-2.0-2.0); BG DEOXYHEMOGLOBIN 2.3 % (0.0-5.0); BG FRACTION INSPIRED OXYGEN 100; BG HCO3 ACT 24.9 mmol/L (22.0-26.0); BG METHEMOGLOBIN 0.3 % (0.0-1.5); BG OXYGEN SATURATION 97.7 % (92.0-98.5); BG OXYHEMOGLOBIN 97.4 % (94.0-97.0); BG PCO2 42.2 mmHg (35.0-45.0); BG PH 7.388 (7.350-7.450); BG PO2 103.5 mmHg (75.0-100.0); BG SAMPLE SITE RIGHT RADIAL; BG TOTAL HEMOGLOBIN 8.9 g/dL (12.0-18.0); BG VENT MODE MASK - NRB
[2021-12-23] MEDS: BENZTROPINE MESYLATE 1MG TABLET PO SCH (20:34)
[2021-12-23] MEDS ORDERED: DEXTROSE 50% WATER 50ML SYRINGE IV NR (20:45)
[2021-12-23 21:37] LABS: PLATELET ESTIMATE DECREASED
[2021-12-23] MEDS: PHENYLEPHRINE 100 MG in DEXT 5% WATER 240 ML IV PRN (23:23)
[2021-12-23] MEDS ORDERED: PROPOFOL 10MG/ML 100ML 100 ML IV PRN (23:45)
[2021-12-23] MEDS: VASOPRESSIN 20 UNIT in SODIUM CHLORIDE 0.9% 99 ML IV PRN (23:59)
[2021-12-24] VITALS (103 sets, daily range): BP systolic 65–175; BP diastolic 39–129
[2021-12-24] MEDS: IPRATROPIUM/ALBUTEROL 0.5-3(2.5)MG/3ML NEB HHN SCH ×6 (00:16→20:56)
[2021-12-24] MEDS: ACETYLCYSTEINE 100MG/ML 10% VIAL 4ML INH SCH ×3 (00:16→16:21)
[2021-12-24 01:21] LABS: BG BASE EXCESS -1.6 mmol/L (-2.0-2.0); BG CARBOXYHEMOGLOBIN 0.1 % (0.5-1.5); BG DEOXYHEMOGLOBIN 2.3 % (0.0-5.0); BG FRACTION INSPIRED OXYGEN 100; BG HCO3 ACT 25.8 mmol/L (22.0-26.0); BG METHEMOGLOBIN 0.3 % (0.0-1.5); BG OXYGEN SATURATION 97.7 % (92.0-98.5); BG OXYHEMOGLOBIN 97.3 % (94.0-97.0); BG PCO2 58.1 mmHg (35.0-45.0); BG PEEP (cmH2O) 0 cmH2O; BG PH 7.265 (7.350-7.450); BG PO2 107.4 mmHg (75.0-100.0); BG SAMPLE SITE LEFT RADIAL; BG TOTAL HEMOGLOBIN 9.3 g/dL (12.0-18.0); BG VENT MODE VENT - AC
[2021-12-24 05:32] LABS: BASOPHILS % 0.3 % (0.0-2.0); EOSINOPHILS % 0.4 % (0.0-5.0); HEMATOCRIT. 30.3 % (42.0-52.0); HEMOGLOBIN. 9.6 g/dL (14.0-18.0); LYMPHOCYTES % 9.3 % (20.0-50.0); MEAN CORPUSCULAR HEMOGLOBIN 32.9 pg (28.0-32.0); MEAN CORPUSCULAR VOLUME 103.7 fL (80.0-94.0); MEAN PLATELET VOLUME 8.3 fl (7.4-10.4); PLATELET 75 x1000/uL (130-400); RED BLOOD CELL COUNT 2.92 mill/uL (4.7-6.1); RED CELL DISTRIBUTION WIDTH 18.4 % (11.6-14.6)
[2021-12-24] MEDS: CLONAZEPAM 1MG TABLET PO SCH ×3 (05:45→21:59)
[2021-12-24] MEDS: DILTIAZEM HCL 5MG/ML 5ML VIAL IV SCH ×3 (05:45→22:00)
[2021-12-24] MEDS: LEVOTHYROXINE SODIUM 50MCG TABLET PO SCH (05:46)
[2021-12-24] MEDS: NOREPINEPHRINE 32 MG in DEXT 5% WATER 218 ML IV PRN ×2 (07:39→18:14)
[2021-12-24 08:57] LABS: BG CARBOXYHEMOGLOBIN 0.2 % (0.5-1.5); BG DEOXYHEMOGLOBIN 0.9 % (0.0-5.0); BG FRACTION INSPIRED OXYGEN 100; BG HCO3 ACT 24.2 mmol/L (22.0-26.0); BG METHEMOGLOBIN 0.4 % (0.0-1.5); BG OXYGEN SATURATION 99.1 % (92.0-98.5); BG OXYHEMOGLOBIN 98.5 % (94.0-97.0); BG PCO2 48.7 mmHg (35.0-45.0); BG PH 7.315 (7.350-7.450); BG PO2 160.5 mmHg (75.0-100.0); BG SAMPLE SITE LEFT RADIAL; BG TOTAL HEMOGLOBIN 8.9 g/dL (12.0-18.0); BG VENT MODE VENT - AC
[2021-12-24] MEDS ORDERED: VECURONIUM BROMIDE 10 MG/VIAL IV ONE (09:08)
[2021-12-24] MEDS ORDERED: SUCCINYLCHOLINE CHLORIDE 200MG/10ML IV ONE (09:08)
[2021-12-24] MEDS ORDERED: ETOMIDATE 2MG/ML 10ML VIAL IV ONE (09:08)
[2021-12-24] MEDS ORDERED: FENTANYL CITRATE/PF 2,500 MCG in SODIUM CHLORIDE 0.9% 200 ML IV PRN (09:15)
[2021-12-24] MEDS: ZIPRASIDONE HCL 40MG CAPSULE PO SCH ×2 (09:20→21:59)
[2021-12-24] MEDS: DIVALPROEX SODIUM 500MG DR TABLET PO SCH ×2 (09:20→21:59)
[2021-12-24] MEDS: MIDODRINE HCL 2.5MG TABLET PO SCH ×3 (09:26→16:10)
[2021-12-24] MEDS: FOLIC ACID/VITAMIN B COMP W-C TABLET PO SCH (09:26)
[2021-12-24] MEDS: DOCUSATE SODIUM SUGAR FREE 100MG/10ML UDC PO SCH ×2 (09:29→16:10)
[2021-12-24] MEDS: PANTOPRAZOLE SODIUM 40 MG/VIAL IV SCH (11:29)
[2021-12-24] MEDS: PHENYLEPHRINE 100 MG in DEXT 5% WATER 240 ML IV PRN ×2 (13:05→22:02)
[2021-12-24] MEDS ORDERED: VANCOMYCIN 1500MG in DEXTROSE 5% WATER 250ML IV NR (14:00)
[2021-12-24] MEDS: COLISTIMETHATE SODIUM 150 MG in SODIUM CHLORIDE 0.9% 100 ML IV SCH (16:05)
[2021-12-24 17:11] LABS: BG BASE EXCESS 0.5 mmol/L (-2.0-2.0); BG CARBOXYHEMOGLOBIN 0.1 % (0.5-1.5); BG DEOXYHEMOGLOBIN 3.5 % (0.0-5.0); BG FRACTION INSPIRED OXYGEN 60; BG HCO3 ACT 25.5 mmol/L (22.0-26.0); BG METHEMOGLOBIN 0.1 % (0.0-1.5); BG OXYGEN SATURATION 96.5 % (92.0-98.5); BG OXYHEMOGLOBIN 96.3 % (94.0-97.0); BG PCO2 42.5 mmHg (35.0-45.0); BG PH 7.396 (7.350-7.450); BG PO2 84.5 mmHg (75.0-100.0); BG SAMPLE SITE RIGHT RADIAL; BG TOTAL HEMOGLOBIN 9.2 g/dL (12.0-18.0); BG VENT MODE VENT - AC
[2021-12-24] MEDS ORDERED: PROPOFOL 10MG/ML 100ML 100 ML IV PRN (21:00)
[2021-12-24] MEDS: BENZTROPINE MESYLATE 1MG TABLET PO SCH (21:59)
[2021-12-24] MEDS: EPOETIN ALFA 10000UNITS/ML VIAL SUBCUT SCH (21:59)
[2021-12-25] VITALS (98 sets, daily range): BP systolic 74–141; BP diastolic 34–75
[2021-12-25] MEDS: ACETYLCYSTEINE 100MG/ML 10% VIAL 4ML INH SCH ×3 (00:23→15:23)
[2021-12-25] MEDS: IPRATROPIUM/ALBUTEROL 0.5-3(2.5)MG/3ML NEB HHN SCH ×6 (00:23→19:56)
[2021-12-25] MEDS: DILTIAZEM HCL 5MG/ML 5ML VIAL IV SCH (06:00)
[2021-12-25] MEDS: PHENYLEPHRINE 100 MG in DEXT 5% WATER 240 ML IV PRN ×2 (06:23→11:50)
[2021-12-25] MEDS: CLONAZEPAM 1MG TABLET PO SCH ×3 (06:31→21:47)
[2021-12-25] MEDS: LEVOTHYROXINE SODIUM 50MCG TABLET PO SCH (06:31)
[2021-12-25] MEDS: DOCUSATE SODIUM SUGAR FREE 100MG/10ML UDC PO SCH ×2 (09:00→16:14)
[2021-12-25] MEDS: FOLIC ACID/VITAMIN B COMP W-C TABLET PO SCH (09:00)
[2021-12-25] MEDS: ZIPRASIDONE HCL 40MG CAPSULE PO SCH ×2 (09:00→21:40)
[2021-12-25] MEDS: MIDODRINE HCL 2.5MG TABLET PO SCH ×3 (09:00→16:14)
[2021-12-25] MEDS: DIVALPROEX SODIUM 500MG DR TABLET PO SCH ×2 (09:00→21:40)
[2021-12-25] MEDS: PANTOPRAZOLE SODIUM 40 MG/VIAL IV SCH (09:00)
[2021-12-25 09:28] LABS: MEAN CORPUSCULAR HEMOGLOBIN 32.2 pg (28.0-32.0); MEAN PLATELET VOLUME 7.6 fl (7.4-10.4); PLATELET 89 x1000/uL (130-400); RED BLOOD CELL COUNT 2.47 mill/uL (4.7-6.1); RED CELL DISTRIBUTION WIDTH 18.1 % (11.6-14.6)
[2021-12-25 09:54] LABS: HEMATOCRIT. 24.5 % (42.0-52.0)
[2021-12-25 09:55] LABS: MEAN CORPUSCULAR VOLUME 99.2 fL (80.0-94.0)
[2021-12-25 10:50] LABS: PLATELET ESTIMATE SLIGHTLY DECREASED
[2021-12-25] MEDS: NOREPINEPHRINE 32 MG in DEXT 5% WATER 218 ML IV PRN (11:48)
[2021-12-25] MEDS: COLISTIMETHATE SODIUM 150 MG in SODIUM CHLORIDE 0.9% 100 ML IV SCH (16:14)
[2021-12-25] MEDS: ACETAMINOPHEN 650MG/20.3ML UDC PO PRN (16:15)
[2021-12-25] MEDS: BENZTROPINE MESYLATE 1MG TABLET PO SCH (21:40)
[2021-12-26] VITALS (88 sets, daily range): BP systolic 65–154; BP diastolic 20–106
[2021-12-26] MEDS: ACETYLCYSTEINE 100MG/ML 10% VIAL 4ML INH SCH ×3 (00:08→15:55)
[2021-12-26] MEDS: IPRATROPIUM/ALBUTEROL 0.5-3(2.5)MG/3ML NEB HHN SCH ×5 (00:08→15:54)
[2021-12-26] MEDS: PHENYLEPHRINE 100 MG in DEXT 5% WATER 240 ML IV PRN ×3 (01:23→18:34)
[2021-12-26] MEDS: LEVOTHYROXINE SODIUM 50MCG TABLET PO SCH (05:25)
[2021-12-26] MEDS: CLONAZEPAM 1MG TABLET PO SCH ×3 (05:25→21:56)
[2021-12-26 05:39] LABS: HEMATOCRIT. 22.1 % (42.0-52.0); HEMOGLOBIN. 7.3 g/dL (14.0-18.0); MEAN CORPUSCULAR HEMOGLOBIN 32.3 pg (28.0-32.0); MEAN CORPUSCULAR VOLUME 98.1 fL (80.0-94.0); PLATELET 70 x1000/uL (130-400); RED BLOOD CELL COUNT 2.25 mill/uL (4.7-6.1)
[2021-12-26] MEDS: DEXTROSE 50% WATER 50ML SYRINGE IV PRN (06:35)
[2021-12-26 07:05] LABS: PLATELET ESTIMATE DECREASED
[2021-12-26] MEDS ORDERED: DEXT 10% WATER 1,000 ML IV SCH (07:30)
[2021-12-26] MEDS: ACETAMINOPHEN 650MG/20.3ML UDC PO PRN (08:15)
[2021-12-26] MEDS: DOCUSATE SODIUM SUGAR FREE 100MG/10ML UDC PO SCH ×2 (08:15→16:34)
[2021-12-26] MEDS: PANTOPRAZOLE SODIUM 40 MG/VIAL IV SCH (08:16)
[2021-12-26] MEDS: ZIPRASIDONE HCL 40MG CAPSULE PO SCH ×2 (08:16→21:55)
[2021-12-26] MEDS: DIVALPROEX SODIUM 500MG DR TABLET PO SCH ×2 (08:16→21:55)
[2021-12-26] MEDS: FOLIC ACID/VITAMIN B COMP W-C TABLET PO SCH (08:16)
[2021-12-26] MEDS: DEXT 10% WATER 1,000 ML IV SCH (08:16)
[2021-12-26] MEDS: MIDODRINE HCL 5MG TABLET PO SCH ×3 (08:16→16:34)
[2021-12-26] MEDS: NOREPINEPHRINE 32 MG in DEXT 5% WATER 218 ML IV PRN (10:43)
[2021-12-26] MEDS ORDERED: HEPARIN SODIUM 1,000 UNIT/1ML VIAL IV NR (12:00)
[2021-12-26] MEDS: VASOPRESSIN 20 UNIT in SODIUM CHLORIDE 0.9% 99 ML IV PRN (14:10)
[2021-12-26] MEDS ORDERED: CEFTRIAXONE 1 G PREMIX 50 ML IV SCH (15:00)
[2021-12-26 15:27] LABS: CLARITY URINE TURBID (CLEAR); COLOR URINE YELLOW (YELLOW); KETONES URINE NEGATIVE (NEGATIVE); LEUKOCYTE ESTERASE URINE 3+ (NEGATIVE); NITRITE URINE NEGATIVE (NEGATIVE); OCCULT BLOOD URINE 2+ (NEGATIVE); PROTEIN URINE 2+ (NEGATIVE); SPECIFIC GRAVITY URINE 1.008 (1.005-1.030); UROBILINOGEN URINE 0.2 E.U./dL (0.2-1.0)
[2021-12-26] MEDS: CEFTRIAXONE 1,000 MG in DEXTROSE 5% WATER 50 ML IV SCH (15:44)
[2021-12-26] MEDS: COLISTIMETHATE SODIUM 150 MG in SODIUM CHLORIDE 0.9% 100 ML IV SCH (15:44)
[2021-12-26] MEDS ORDERED: VANCOMYCIN 1G PREMIX 200 ML IV NR (18:00)
[2021-12-26] MEDS: BENZTROPINE MESYLATE 1MG TABLET PO SCH (21:55)
[2021-12-26] MEDS: EPOETIN ALFA 10000UNITS/ML VIAL SUBCUT SCH (21:56)
[2021-12-27] VITALS (93 sets, daily range): BP systolic 67–136; BP diastolic 30–71
[2021-12-27] MEDS: IPRATROPIUM/ALBUTEROL 0.5-3(2.5)MG/3ML NEB HHN SCH ×6 (00:32→20:46)
[2021-12-27] MEDS: ACETYLCYSTEINE 100MG/ML 10% VIAL 4ML INH SCH ×3 (00:32→17:11)
[2021-12-27] MEDS: NOREPINEPHRINE 32 MG in DEXT 5% WATER 218 ML IV PRN ×2 (02:07→19:46)
[2021-12-27] MEDS: PHENYLEPHRINE 100 MG in DEXT 5% WATER 240 ML IV PRN ×3 (02:08→19:45)
[2021-12-27 05:41] LABS: HEMATOCRIT. 23.7 % (42.0-52.0); HEMOGLOBIN. 7.8 g/dL (14.0-18.0); MEAN CORPUSCULAR HEMOGLOBIN 32.3 pg (28.0-32.0); MEAN CORPUSCULAR VOLUME 98.2 fL (80.0-94.0); MEAN PLATELET VOLUME 7.4 fl (7.4-10.4); PLATELET 67 x1000/uL (130-400); RED BLOOD CELL COUNT 2.41 mill/uL (4.7-6.1)
[2021-12-27] MEDS: LEVOTHYROXINE SODIUM 50MCG TABLET PO SCH (06:21)
[2021-12-27] MEDS: CLONAZEPAM 1MG TABLET PO SCH (06:21)
[2021-12-27] MEDS ORDERED: FENTANYL 2500MCG/250ML PMX 250 ML IV PRN (07:53)
[2021-12-27 08:07] LABS: PLATELET ESTIMATE DECREASED
[2021-12-27] MEDS: MIDODRINE HCL 5MG TABLET PO SCH ×3 (08:20→16:29)
[2021-12-27] MEDS: DOCUSATE SODIUM SUGAR FREE 100MG/10ML UDC PO SCH ×2 (08:20→16:29)
[2021-12-27] MEDS: PANTOPRAZOLE SODIUM 40 MG/VIAL IV SCH (08:20)
[2021-12-27] MEDS: FOLIC ACID/VITAMIN B COMP W-C TABLET PO SCH (08:20)
[2021-12-27] MEDS: ZIPRASIDONE HCL 40MG CAPSULE PO SCH (09:00)
[2021-12-27] MEDS: DIVALPROEX SODIUM 500MG DR TABLET PO SCH (09:00)
[2021-12-27 09:01] LABS: BG BASE EXCESS -1.2 mmol/L (-2.0-2.0); BG CARBOXYHEMOGLOBIN 0.3 % (0.5-1.5); BG DEOXYHEMOGLOBIN 3.3 % (0.0-5.0); BG FRACTION INSPIRED OXYGEN 40; BG METHEMOGLOBIN 1.1 % (0.0-1.5); BG OXYGEN SATURATION 96.7 % (92.0-98.5); BG OXYHEMOGLOBIN 95.3 % (94.0-97.0); BG PH 7.374 (7.350-7.450); BG PO2 95.7 mmHg (75.0-100.0); BG SAMPLE SITE RIGHT RADIAL; BG TOTAL HEMOGLOBIN 12.1 g/dL (12.0-18.0); BG VENT MODE VENT - AC
[2021-12-27] MEDS: DEXT 10% WATER 1,000 ML IV SCH (09:45)
[2021-12-27] MEDS: METOCLOPRAMIDE HCL 10MG/2ML VIAL IV SCH ×2 (11:25→17:17)
[2021-12-27] MEDS: CEFTRIAXONE 1,000 MG in DEXTROSE 5% WATER 50 ML IV SCH (15:02)
[2021-12-27] MEDS: COLISTIMETHATE SODIUM 150 MG in SODIUM CHLORIDE 0.9% 100 ML IV SCH (15:02)
[2021-12-27] MEDS: CEFEPIME 1,000 MG in DEXTROSE 5% WATER 50 ML IV SCH (16:29)
[2021-12-27 18:27] LABS: TOTAL IRON BINDING CAPACITY 122 ug/dL (250-450)
[2021-12-28] VITALS (93 sets, daily range): BP systolic 65–135; BP diastolic 34–99
[2021-12-28] MEDS: ACETYLCYSTEINE 100MG/ML 10% VIAL 4ML INH SCH ×3 (00:31→16:49)
[2021-12-28] MEDS: IPRATROPIUM/ALBUTEROL 0.5-3(2.5)MG/3ML NEB HHN SCH ×6 (00:32→20:38)
[2021-12-28] MEDS: METOCLOPRAMIDE HCL 10MG/2ML VIAL IV SCH ×4 (00:33→17:34)
[2021-12-28 05:11] LABS: HEMATOCRIT. 23.2 % (42.0-52.0); HEMOGLOBIN. 7.6 g/dL (14.0-18.0); MEAN CORPUSCULAR HEMOGLOBIN 32.3 pg (28.0-32.0); MEAN CORPUSCULAR VOLUME 98.2 fL (80.0-94.0); MEAN PLATELET VOLUME 7.6 fl (7.4-10.4); RED BLOOD CELL COUNT 2.36 mill/uL (4.7-6.1); RED CELL DISTRIBUTION WIDTH 18.1 % (11.6-14.6)
[2021-12-28] MEDS: PHENYLEPHRINE 100 MG in DEXT 5% WATER 240 ML IV PRN ×3 (05:34→23:25)
[2021-12-28 05:45] LABS: PLATELET 49 x1000/uL (130-400)
[2021-12-28] MEDS: LEVOTHYROXINE SODIUM 50MCG TABLET PO SCH (06:04)
[2021-12-28] MEDS: DEXTROSE 50% WATER 50ML SYRINGE IV PRN (06:05)
[2021-12-28 07:53] LABS: PLATELET ESTIMATE MARKEDLY DECREASED
[2021-12-28] MEDS: DOCUSATE SODIUM SUGAR FREE 100MG/10ML UDC PO SCH ×2 (08:33→17:34)
[2021-12-28] MEDS: PANTOPRAZOLE SODIUM 40 MG/VIAL IV SCH (08:33)
[2021-12-28] MEDS: MIDODRINE HCL 5MG TABLET PO SCH ×3 (08:38→17:35)
[2021-12-28] MEDS: DEXT 10% WATER 1,000 ML IV SCH (08:49)
[2021-12-28] MEDS: FOLIC ACID/VITAMIN B COMP W-C TABLET PO SCH (08:51)
[2021-12-28 09:15] LABS: BG BASE EXCESS -3.6 mmol/L (-2.0-2.0); BG CARBOXYHEMOGLOBIN 0.3 % (0.5-1.5); BG DEOXYHEMOGLOBIN 2.5 % (0.0-5.0); BG FRACTION INSPIRED OXYGEN 40; BG HCO3 ACT 21.4 mmol/L (22.0-26.0); BG METHEMOGLOBIN 0.6 % (0.0-1.5); BG OXYGEN SATURATION 97.5 % (92.0-98.5); BG OXYHEMOGLOBIN 96.6 % (94.0-97.0); BG PCO2 38.3 mmHg (35.0-45.0); BG PH 7.365 (7.350-7.450); BG SAMPLE SITE RIGHT RADIAL; BG TOTAL HEMOGLOBIN 8.2 g/dL (12.0-18.0); BG VENT MODE VENT - AC
[2021-12-28] MEDS ORDERED: HEPARIN SODIUM 1,000 UNIT/1ML VIAL IV NR (10:00)
[2021-12-28] MEDS: NOREPINEPHRINE 32 MG in DEXT 5% WATER 218 ML IV PRN (11:02)
[2021-12-28] MEDS: VASOPRESSIN 20 UNIT in SODIUM CHLORIDE 0.9% 99 ML IV PRN ×2 (11:03→20:37)
[2021-12-28] MEDS ORDERED: VANCOMYCIN 750MG PREMIX 150 ML IV SCH (14:00)
[2021-12-28] MEDS: CEFEPIME 1,000 MG in DEXTROSE 5% WATER 50 ML IV SCH (17:34)
[2021-12-28] MEDS: COLISTIMETHATE SODIUM 150 MG in SODIUM CHLORIDE 0.9% 100 ML IV SCH (17:34)
[2021-12-28] MEDS: AMIODARONE HCL 200 MG TABLET PO SCH (21:19)
[2021-12-29] VITALS (89 sets, daily range): BP systolic 56–175; BP diastolic 26–91
[2021-12-29] MEDS: IPRATROPIUM/ALBUTEROL 0.5-3(2.5)MG/3ML NEB HHN SCH ×7 (00:11→23:57)
[2021-12-29] MEDS: METOCLOPRAMIDE HCL 10MG/2ML VIAL IV SCH ×5 (00:18→23:19)
[2021-12-29] MEDS: ACETYLCYSTEINE 100MG/ML 10% VIAL 4ML INH SCH (00:20)
[2021-12-29] MEDS: NOREPINEPHRINE 32 MG in DEXT 5% WATER 218 ML IV PRN (02:29)
[2021-12-29] MEDS: LEVOTHYROXINE SODIUM 50MCG TABLET PO SCH (06:10)
[2021-12-29] MEDS: PHENYLEPHRINE 100 MG in DEXT 5% WATER 240 ML IV PRN ×3 (06:20→23:11)
[2021-12-29] MEDS: VASOPRESSIN 20 UNIT in SODIUM CHLORIDE 0.9% 99 ML IV PRN ×3 (06:23→23:19)
[2021-12-29] MEDS: DEXT 10% WATER 1,000 ML IV SCH ×2 (07:45→23:11)
[2021-12-29 08:55] LABS: BG BASE EXCESS -0.6 mmol/L (-2.0-2.0); BG CARBOXYHEMOGLOBIN 1.1 % (0.5-1.5); BG DEOXYHEMOGLOBIN 1.2 % (0.0-5.0); BG FRACTION INSPIRED OXYGEN 40; BG HCO3 ACT 23.6 mmol/L (22.0-26.0); BG METHEMOGLOBIN 0.6 % (0.0-1.5); BG OXYGEN SATURATION 98.8 % (92.0-98.5); BG OXYHEMOGLOBIN 97.1 % (94.0-97.0); BG PCO2 36.5 mmHg (35.0-45.0); BG PH 7.428 (7.350-7.450); BG PO2 120.7 mmHg (75.0-100.0); BG SAMPLE SITE RIGHT RADIAL; BG TOTAL HEMOGLOBIN 7.5 g/dL (12.0-18.0); BG VENT MODE VENT - AC
[2021-12-29] MEDS: DOCUSATE SODIUM SUGAR FREE 100MG/10ML UDC PO SCH ×2 (09:14→17:00)
[2021-12-29] MEDS: AMIODARONE HCL 200 MG TABLET PO SCH ×2 (09:15→20:47)
[2021-12-29] MEDS: PANTOPRAZOLE SODIUM 40 MG/VIAL IV SCH (09:15)
[2021-12-29] MEDS: MIDODRINE HCL 5MG TABLET PO SCH ×3 (09:15→17:00)
[2021-12-29] MEDS: FOLIC ACID/VITAMIN B COMP W-C TABLET PO SCH (09:15)
[2021-12-29 10:37] LABS: HEMATOCRIT. 24.9 % (42.0-52.0); HEMOGLOBIN. 7.9 g/dL (14.0-18.0); MEAN CORPUSCULAR HEMOGLOBIN 31.8 pg (28.0-32.0); MEAN CORPUSCULAR VOLUME 100.2 fL (80.0-94.0); MEAN PLATELET VOLUME 8.4 fl (7.4-10.4); RED BLOOD CELL COUNT 2.48 mill/uL (4.7-6.1); RED CELL DISTRIBUTION WIDTH 18.6 % (11.6-14.6)
[2021-12-29 10:40] LABS: CHLORIDE 99 mEq/L (98-107)
[2021-12-29 10:42] LABS: PLATELET 41 x1000/uL (130-400)
[2021-12-29 10:47] LABS: D-DIMER 2.99 mg/L FEU (<0.50); INR 1.6; PROTHROMBIN TIME 16.5 sec (9.6-11.0)
[2021-12-29 11:26] LABS: NUCLEATED RED BLOOD CELLS 1 /100 WBC; PLATELET ESTIMATE MARKEDLY DECREASED
[2021-12-29] MEDS: VANCOMYCIN 1000MG/20ML ORAL SOLN PO SCH ×3 (12:59→23:19)
[2021-12-29 15:35] LABS: T4 FREE 0.69 ng/dL (0.76-1.46)
[2021-12-29] MEDS: CEFEPIME 1,000 MG in DEXTROSE 5% WATER 50 ML IV SCH (16:11)
[2021-12-29] MEDS: COLISTIMETHATE SODIUM 150 MG in SODIUM CHLORIDE 0.9% 100 ML IV SCH (16:14)
[2021-12-30] VITALS (79 sets, daily range): BP systolic 66–136; BP diastolic 26–82
[2021-12-30] MEDS: IPRATROPIUM/ALBUTEROL 0.5-3(2.5)MG/3ML NEB HHN SCH ×5 (03:58→20:10)
[2021-12-30] MEDS: VANCOMYCIN 1000MG/20ML ORAL SOLN PO SCH ×4 (05:17→23:45)
[2021-12-30] MEDS: METOCLOPRAMIDE HCL 10MG/2ML VIAL IV SCH ×4 (05:17→23:44)
[2021-12-30] MEDS: LEVOTHYROXINE SODIUM 50MCG TABLET PO SCH (05:18)
[2021-12-30] MEDS: PHENYLEPHRINE 100 MG in DEXT 5% WATER 240 ML IV PRN ×2 (05:47→22:38)
[2021-12-30 06:14] LABS: HEMATOCRIT. 21.2 % (42.0-52.0); MEAN CORPUSCULAR HEMOGLOBIN 32.5 pg (28.0-32.0); MEAN CORPUSCULAR VOLUME 100.1 fL (80.0-94.0); MEAN PLATELET VOLUME 7.8 fl (7.4-10.4); RED BLOOD CELL COUNT 2.11 mill/uL (4.7-6.1); RED CELL DISTRIBUTION WIDTH 17.9 % (11.6-14.6)
[2021-12-30 07:26] LABS: PLATELET 35 x1000/uL (130-400)
[2021-12-30 07:27] LABS: HEMOGLOBIN. 6.9 g/dL (14.0-18.0)
[2021-12-30] MEDS: DOCUSATE SODIUM SUGAR FREE 100MG/10ML UDC PO SCH ×2 (09:00→16:25)
[2021-12-30] MEDS ORDERED: LACTOBACILLUS GG CAPSULE PO SCH (09:00)
[2021-12-30 09:11] LABS: BG BASE EXCESS -2.6 mmol/L (-2.0-2.0); BG CARBOXYHEMOGLOBIN 1.3 % (0.5-1.5); BG DEOXYHEMOGLOBIN 2.5 % (0.0-5.0); BG FRACTION INSPIRED OXYGEN 30; BG HCO3 ACT 22.8 mmol/L (22.0-26.0); BG METHEMOGLOBIN 0.4 % (0.0-1.5); BG OXYGEN SATURATION 97.5 % (92.0-98.5); BG OXYHEMOGLOBIN 95.8 % (94.0-97.0); BG PH 7.352 (7.350-7.450); BG PO2 103.8 mmHg (75.0-100.0); BG SAMPLE SITE LEFT RADIAL; BG TOTAL HEMOGLOBIN 7.5 g/dL (12.0-18.0); BG VENT MODE VENT - AC
[2021-12-30] MEDS: PANTOPRAZOLE SODIUM 40 MG/VIAL IV SCH (09:59)
[2021-12-30] MEDS: AMIODARONE HCL 200 MG TABLET PO SCH ×2 (09:59→20:24)
[2021-12-30] MEDS: MIDODRINE HCL 5MG TABLET PO SCH ×3 (09:59→17:00)
[2021-12-30] MEDS: FOLIC ACID/VITAMIN B COMP W-C TABLET PO SCH (09:59)
[2021-12-30] MEDS: ACETAMINOPHEN 650MG/20.3ML UDC PO PRN (10:00)
[2021-12-30] MEDS: VASOPRESSIN 20 UNIT in SODIUM CHLORIDE 0.9% 99 ML IV PRN (10:01)
[2021-12-30 11:03] LABS: PLATELET ESTIMATE MARKEDLY DECREASED
[2021-12-30] MEDS: LACTOBACILLUS GG CAPSULE PO SCH (14:00)
[2021-12-30] MEDS: COLISTIMETHATE SODIUM 150 MG in SODIUM CHLORIDE 0.9% 100 ML IV SCH (16:24)
[2021-12-30] MEDS: CEFEPIME 1,000 MG in DEXTROSE 5% WATER 50 ML IV SCH (16:25)
[2021-12-30 18:54] LABS: HEMATOCRIT 26.7 % (42.0-52.0); HEMOGLOBIN 8.9 g/dL (14.0-18.0)
[2021-12-31] VITALS (83 sets, daily range): BP systolic 70–140; BP diastolic 21–107
[2021-12-31] MEDS: IPRATROPIUM/ALBUTEROL 0.5-3(2.5)MG/3ML NEB HHN SCH ×6 (00:15→21:28)
[2021-12-31] MEDS: VASOPRESSIN 20 UNIT in SODIUM CHLORIDE 0.9% 99 ML IV PRN ×2 (03:13→13:25)
[2021-12-31] MEDS: METOCLOPRAMIDE HCL 10MG/2ML VIAL IV SCH ×4 (05:35→23:18)
[2021-12-31] MEDS: LEVOTHYROXINE SODIUM 100MCG TABLET PO SCH (05:35)
[2021-12-31] MEDS: VANCOMYCIN 1000MG/20ML ORAL SOLN PO SCH ×4 (05:35→23:18)
[2021-12-31 05:46] LABS: HEMATOCRIT. 26.5 % (42.0-52.0); HEMOGLOBIN. 8.7 g/dL (14.0-18.0); MEAN CORPUSCULAR HEMOGLOBIN 32.1 pg (28.0-32.0); MEAN CORPUSCULAR VOLUME 98.1 fL (80.0-94.0); MEAN PLATELET VOLUME 8.4 fl (7.4-10.4); RED BLOOD CELL COUNT 2.71 mill/uL (4.7-6.1); RED CELL DISTRIBUTION WIDTH 20.1 % (11.6-14.6)
[2021-12-31 06:08] LABS: CHLORIDE 102 mEq/L (98-107)
[2021-12-31 06:22] LABS: HDL CHOLESTEROL 10 mg/dL (40-59); LDL CHOLESTEROL 33 mg/dL (5-100)
[2021-12-31 07:23] LABS: PLATELET ESTIMATE MARKEDLY DECREASED
[2021-12-31 07:47] LABS: PLATELET 32 x1000/uL (130-400)
[2021-12-31] MEDS ORDERED: POTASSIUM CHLORIDE 20MEQ/PACKET PO NR (08:15)
[2021-12-31 08:44] LABS: BG BASE EXCESS -0.8 mmol/L (-2.0-2.0); BG CARBOXYHEMOGLOBIN 0.5 % (0.5-1.5); BG DEOXYHEMOGLOBIN 2.5 % (0.0-5.0); BG FRACTION INSPIRED OXYGEN 30; BG HCO3 ACT 24.1 mmol/L (22.0-26.0); BG METHEMOGLOBIN 0.3 % (0.0-1.5); BG OXYGEN SATURATION 97.5 % (92.0-98.5); BG OXYHEMOGLOBIN 96.7 % (94.0-97.0); BG PCO2 40.7 mmHg (35.0-45.0); BG PO2 111.9 mmHg (75.0-100.0); BG SAMPLE SITE RIGHT RADIAL; BG TOTAL HEMOGLOBIN 8.2 g/dL (12.0-18.0); BG VENT MODE VENT - AC
[2021-12-31] MEDS: DOCUSATE SODIUM SUGAR FREE 100MG/10ML UDC PO SCH ×2 (09:00→16:48)
[2021-12-31] MEDS: FOLIC ACID/VITAMIN B COMP W-C TABLET PO SCH (09:18)
[2021-12-31] MEDS: ACETAMINOPHEN 650MG/20.3ML UDC PO PRN (09:18)
[2021-12-31] MEDS: AMIODARONE HCL 200 MG TABLET PO SCH ×2 (09:19→21:00)
[2021-12-31] MEDS: MIDODRINE HCL 5MG TABLET PO SCH ×3 (09:19→17:00)
[2021-12-31] MEDS: LACTOBACILLUS GG CAPSULE PO SCH (09:19)
[2021-12-31] MEDS: PANTOPRAZOLE SODIUM 40 MG/VIAL IV SCH (09:19)
[2021-12-31] MEDS ORDERED: DIATR MEGLU/DIATRIZOATE SOLN 30ML PO NR (13:00)
[2021-12-31] MEDS: DEXTROSE 50% WATER 50ML SYRINGE IV PRN (16:06)
[2021-12-31] MEDS: COLISTIMETHATE SODIUM 150 MG in SODIUM CHLORIDE 0.9% 100 ML IV SCH (16:12)
[2021-12-31] MEDS: CEFEPIME 1,000 MG in DEXTROSE 5% WATER 50 ML IV SCH (16:26)
[2021-12-31] MEDS ORDERED: DEXT 5%/0.9% NACL 1,000 ML IV SCH (18:00)
[2022-01-01] VITALS (97 sets, daily range): BP systolic 64–131; BP diastolic 26–90
[2022-01-01] MEDS: IPRATROPIUM/ALBUTEROL 0.5-3(2.5)MG/3ML NEB HHN SCH ×6 (00:49→20:33)
[2022-01-01] MEDS: DEXTROSE 50% WATER 50ML SYRINGE IV PRN ×3 (04:27→08:29)
[2022-01-01 05:18] LABS: BASOPHILS % 0.1 % (0.0-2.0); EOSINOPHILS % 0.3 % (0.0-5.0); HEMATOCRIT. 24.8 % (42.0-52.0); HEMOGLOBIN. 8.3 g/dL (14.0-18.0); LYMPHOCYTES % 9.7 % (20.0-50.0); MEAN CORPUSCULAR HEMOGLOBIN 32.3 pg (28.0-32.0); MEAN CORPUSCULAR VOLUME 96.1 fL (80.0-94.0); MEAN PLATELET VOLUME 8.6 fl (7.4-10.4); MONOCYTES % 6.1 % (2.0-8.0); NEUTROPHILS % 83.8 % (40.0-76.0); RED BLOOD CELL COUNT 2.58 mill/uL (4.7-6.1); RED CELL DISTRIBUTION WIDTH 19.6 % (11.6-14.6)
[2022-01-01 05:29] LABS: PLATELET 25 x1000/uL (130-400)
[2022-01-01] MEDS: VANCOMYCIN 1000MG/20ML ORAL SOLN PO SCH ×4 (06:00→23:50)
[2022-01-01] MEDS: LEVOTHYROXINE SODIUM 100MCG TABLET PO SCH (06:17)
[2022-01-01] MEDS: METOCLOPRAMIDE HCL 10MG/2ML VIAL IV SCH ×4 (06:52→23:50)
[2022-01-01] MEDS: PHENYLEPHRINE 100 MG in DEXT 5% WATER 240 ML IV PRN ×2 (06:52→18:23)
[2022-01-01 08:34] LABS: BG BASE EXCESS -5.2 mmol/L (-2.0-2.0); BG CARBOXYHEMOGLOBIN 0.2 % (0.5-1.5); BG DEOXYHEMOGLOBIN 3.5 % (0.0-5.0); BG FRACTION INSPIRED OXYGEN 30; BG HCO3 ACT 20.7 mmol/L (22.0-26.0); BG METHEMOGLOBIN 0.3 % (0.0-1.5); BG OXYGEN SATURATION 96.5 % (92.0-98.5); BG PCO2 42.1 mmHg (35.0-45.0); BG PO2 99.6 mmHg (75.0-100.0); BG SAMPLE SITE RIGHT RADIAL; BG TOTAL HEMOGLOBIN 9.6 g/dL (12.0-18.0); BG TOTAL RESPIRATORY RATE 22 b/min; BG VENT MODE VENT - SIMV
[2022-01-01] MEDS: DOCUSATE SODIUM SUGAR FREE 100MG/10ML UDC PO SCH ×2 (09:00→17:00)
[2022-01-01] MEDS ORDERED: DEXTROSE 10% WATER 500 ML IV ONE (09:00)
[2022-01-01] MEDS: LACTOBACILLUS GG CAPSULE PO SCH (09:00)
[2022-01-01] MEDS: AMIODARONE HCL 200 MG TABLET PO SCH ×2 (09:00→21:14)
[2022-01-01] MEDS: PANTOPRAZOLE SODIUM 40 MG/VIAL IV SCH (09:00)
[2022-01-01] MEDS: FOLIC ACID/VITAMIN B COMP W-C TABLET PO SCH (09:00)
[2022-01-01] MEDS: MIDODRINE HCL 5MG TABLET PO SCH ×3 (09:00→17:00)
[2022-01-01] MEDS ORDERED: KCL 20MEQ/100ML PREMIX 100 ML IV NR (11:00)
[2022-01-01 15:10] LABS: INSULIN 2.5 uIU/mL (2.6-24.9)
[2022-01-01] MEDS: CEFEPIME 1,000 MG in DEXTROSE 5% WATER 50 ML IV SCH (16:05)
[2022-01-01 18:14] LABS: BG BASE EXCESS 0.1 mmol/L (-2.0-2.0); BG CARBOXYHEMOGLOBIN 0.4 % (0.5-1.5); BG DEOXYHEMOGLOBIN 5.2 % (0.0-5.0); BG FRACTION INSPIRED OXYGEN 30; BG HCO3 ACT 25.1 mmol/L (22.0-26.0); BG METHEMOGLOBIN 0.3 % (0.0-1.5); BG OXYGEN SATURATION 94.8 % (92.0-98.5); BG OXYHEMOGLOBIN 94.1 % (94.0-97.0); BG PCO2 42.3 mmHg (35.0-45.0); BG PH 7.392 (7.350-7.450); BG PO2 82.9 mmHg (75.0-100.0); BG SAMPLE SITE RIGHT RADIAL; BG TOTAL HEMOGLOBIN 10.6 g/dL (12.0-18.0); BG TOTAL RESPIRATORY RATE 33 b/min; BG VENT MODE VENT - CPAP
[2022-01-01] MEDS: BLOOD SUGAR DIAGNOSTIC STRIP TEST SCH ×2 (20:00→23:39)
[2022-01-01] MEDS: HALOPERIDOL 2MG TABLET PO SCH (21:14)
[2022-01-01] MEDS ORDERED: DEXT 10% WATER 1,000 ML IV SCH (23:00)
[2022-01-01] MEDS: NOREPINEPHRINE 32 MG in DEXT 5% WATER 218 ML IV PRN (23:25)
[2022-01-02] VITALS (104 sets, daily range): BP systolic 46–123; BP diastolic 20–73
[2022-01-02] MEDS: IPRATROPIUM/ALBUTEROL 0.5-3(2.5)MG/3ML NEB HHN SCH ×6 (00:22→20:26)
[2022-01-02] MEDS: PHENYLEPHRINE 100 MG in DEXT 5% WATER 240 ML IV PRN ×3 (02:26→17:04)
[2022-01-02] MEDS: BLOOD SUGAR DIAGNOSTIC STRIP TEST SCH ×5 (04:00→20:00)
[2022-01-02] MEDS: METOCLOPRAMIDE HCL 10MG/2ML VIAL IV SCH ×3 (05:07→17:01)
[2022-01-02] MEDS: VANCOMYCIN 1000MG/20ML ORAL SOLN PO SCH ×3 (05:07→17:01)
[2022-01-02 05:26] LABS: BASOPHILS % 0.2 % (0.0-2.0); EOSINOPHILS % 0.1 % (0.0-5.0); HEMATOCRIT. 27.9 % (42.0-52.0); HEMOGLOBIN. 9.3 g/dL (14.0-18.0); LYMPHOCYTES % 7.7 % (20.0-50.0); MEAN CORPUSCULAR VOLUME 95.4 fL (80.0-94.0); MEAN PLATELET VOLUME 8.8 fl (7.4-10.4); MONOCYTES % 5.9 % (2.0-8.0); NEUTROPHILS % 86.1 % (40.0-76.0); RED BLOOD CELL COUNT 2.92 mill/uL (4.7-6.1); RED CELL DISTRIBUTION WIDTH 19.8 % (11.6-14.6)
[2022-01-02 05:31] LABS: CHLORIDE 108 mEq/L (98-107)
[2022-01-02] MEDS: DEXTROSE 50% WATER 50ML SYRINGE IV PRN ×2 (06:01→12:04)
[2022-01-02 06:16] LABS: PLATELET 45 x1000/uL (130-400)
[2022-01-02] MEDS: MIDODRINE HCL 5MG TABLET PO SCH ×3 (08:25→17:00)
[2022-01-02] MEDS: FOLIC ACID/VITAMIN B COMP W-C TABLET PO SCH (08:25)
[2022-01-02] MEDS: AMIODARONE HCL 200 MG TABLET PO SCH ×2 (08:25→20:24)
[2022-01-02] MEDS: DOCUSATE SODIUM SUGAR FREE 100MG/10ML UDC PO SCH ×2 (08:25→16:59)
[2022-01-02] MEDS: LACTOBACILLUS GG CAPSULE PO SCH (08:25)
[2022-01-02] MEDS: HALOPERIDOL 2MG TABLET PO SCH ×2 (08:26→20:24)
[2022-01-02] MEDS: PANTOPRAZOLE SODIUM 40 MG/VIAL IV SCH (08:26)
[2022-01-02] MEDS ORDERED: KCL 20MEQ/100ML PREMIX 100 ML IV NR (09:30)
[2022-01-02 09:50] LABS: BG BASE EXCESS -0.8 mmol/L (-2.0-2.0); BG CARBOXYHEMOGLOBIN 0.5 % (0.5-1.5); BG DEOXYHEMOGLOBIN 5.7 % (0.0-5.0); BG HCO3 ACT 23.1 mmol/L (22.0-26.0); BG METHEMOGLOBIN 0.1 % (0.0-1.5); BG OXYGEN SATURATION 94.3 % (92.0-98.5); BG OXYHEMOGLOBIN 93.7 % (94.0-97.0); BG PCO2 35.4 mmHg (35.0-45.0); BG PH 7.432 (7.350-7.450); BG PO2 75.6 mmHg (75.0-100.0); BG SAMPLE SITE RIGHT RADIAL; BG TOTAL HEMOGLOBIN 10.8 g/dL (12.0-18.0); BG VENT MODE VENT - CPAP
[2022-01-02] MEDS ORDERED: METOCLOPRAMIDE HCL 10MG/2ML VIAL IV SCH (12:30)
[2022-01-02] MEDS: CEFEPIME 1,000 MG in DEXTROSE 5% WATER 50 ML IV SCH (16:59)
[2022-01-02] MEDS: NOREPINEPHRINE 32 MG in DEXT 5% WATER 218 ML IV PRN (20:25)
[2022-01-03] VITALS (97 sets, daily range): BP systolic 81–121; BP diastolic 46–78
[2022-01-03] MEDS: VANCOMYCIN 1000MG/20ML ORAL SOLN PO SCH ×4 (00:17→16:57)
[2022-01-03] MEDS: METOCLOPRAMIDE HCL 10MG/2ML VIAL IV SCH ×4 (00:17→16:57)
[2022-01-03] MEDS: DEXTROSE 50% WATER 50ML SYRINGE IV PRN ×3 (00:18→08:53)
[2022-01-03] MEDS: PHENYLEPHRINE 100 MG in DEXT 5% WATER 240 ML IV PRN ×3 (01:28→16:09)
[2022-01-03] MEDS: BLOOD SUGAR DIAGNOSTIC STRIP TEST SCH ×6 (04:00→20:23)
[2022-01-03] MEDS: IPRATROPIUM/ALBUTEROL 0.5-3(2.5)MG/3ML NEB HHN SCH ×6 (04:38→23:56)
[2022-01-03 05:27] LABS: BASOPHILS % 0.3 % (0.0-2.0); EOSINOPHILS % 0.6 % (0.0-5.0); HEMATOCRIT. 26.4 % (42.0-52.0); HEMOGLOBIN. 8.6 g/dL (14.0-18.0); LYMPHOCYTES % 15.6 % (20.0-50.0); MEAN CORPUSCULAR HEMOGLOBIN 31.2 pg (28.0-32.0); MEAN CORPUSCULAR VOLUME 95.3 fL (80.0-94.0); MEAN PLATELET VOLUME 8.3 fl (7.4-10.4); MONOCYTES % 6.7 % (2.0-8.0); NEUTROPHILS % 76.8 % (40.0-76.0); RED BLOOD CELL COUNT 2.77 mill/uL (4.7-6.1); RED CELL DISTRIBUTION WIDTH 19.4 % (11.6-14.6)
[2022-01-03 05:39] LABS: INR 3.4; PROTHROMBIN TIME 32.7 sec (9.6-11.0)
[2022-01-03 05:47] LABS: PLATELET 49 x1000/uL (130-400)
[2022-01-03] MEDS: DEXT 10% WATER 1,000 ML IV SCH (08:51)
[2022-01-03] MEDS: FOLIC ACID/VITAMIN B COMP W-C TABLET PO SCH (08:51)
[2022-01-03] MEDS: PANTOPRAZOLE SODIUM 40 MG/VIAL IV SCH (08:51)
[2022-01-03] MEDS: DOCUSATE SODIUM SUGAR FREE 100MG/10ML UDC PO SCH ×2 (08:51→16:07)
[2022-01-03] MEDS: AMIODARONE HCL 200 MG TABLET PO SCH ×2 (08:52→21:35)
[2022-01-03] MEDS: MIDODRINE HCL 5MG TABLET PO SCH ×3 (08:52→16:07)
[2022-01-03] MEDS: HALOPERIDOL 2MG TABLET PO SCH ×2 (08:52→21:35)
[2022-01-03] MEDS: LACTOBACILLUS GG CAPSULE PO SCH (08:52)
[2022-01-03] MEDS ORDERED: DEXT 10% WATER 1,000 ML IV SCH (09:00)
[2022-01-03] MEDS: CEFEPIME 1,000 MG in DEXTROSE 5% WATER 50 ML IV SCH (16:07)
[2022-01-03] MEDS: NOREPINEPHRINE 32 MG in DEXT 5% WATER 218 ML IV PRN (16:08)
[2022-01-04] VITALS (57 sets, daily range): BP systolic 90–146; BP diastolic 48–77
[2022-01-04] MEDS: PHENYLEPHRINE 100 MG in DEXT 5% WATER 240 ML IV PRN ×4 (00:11→23:30)
[2022-01-04] MEDS: BLOOD SUGAR DIAGNOSTIC STRIP TEST SCH ×6 (00:48→20:00)
[2022-01-04] MEDS: METOCLOPRAMIDE HCL 10MG/2ML VIAL IV SCH ×4 (00:50→18:10)
[2022-01-04] MEDS: DEXT 10% WATER 1,000 ML IV SCH (00:50)
[2022-01-04] MEDS: VANCOMYCIN 1000MG/20ML ORAL SOLN PO SCH ×4 (00:50→18:10)
[2022-01-04] MEDS: IPRATROPIUM/ALBUTEROL 0.5-3(2.5)MG/3ML NEB HHN SCH ×5 (04:06→20:53)
[2022-01-04 05:04] LABS: BASOPHILS % 0.4 % (0.0-2.0); EOSINOPHILS % 0.5 % (0.0-5.0); HEMATOCRIT. 24.9 % (42.0-52.0); HEMOGLOBIN. 8.2 g/dL (14.0-18.0); LYMPHOCYTES % 17.6 % (20.0-50.0); MEAN CORPUSCULAR VOLUME 97.2 fL (80.0-94.0); MONOCYTES % 7.7 % (2.0-8.0); NEUTROPHILS % 73.8 % (40.0-76.0); PLATELET 52 x1000/uL (130-400); RED BLOOD CELL COUNT 2.56 mill/uL (4.7-6.1); RED CELL DISTRIBUTION WIDTH 19.3 % (11.6-14.6)
[2022-01-04 05:36] LABS: INR 3.4; PROTHROMBIN TIME 33.4 sec (9.6-11.0)
[2022-01-04] MEDS: NOREPINEPHRINE 32 MG in DEXT 5% WATER 218 ML IV PRN ×2 (07:47→23:19)
[2022-01-04] MEDS: MIDODRINE HCL 5MG TABLET PO SCH ×3 (09:00→17:19)
[2022-01-04] MEDS: AMIODARONE HCL 200 MG TABLET PO SCH ×2 (09:00→21:43)
[2022-01-04] MEDS: LACTOBACILLUS GG CAPSULE PO SCH (09:59)
[2022-01-04] MEDS: DOCUSATE SODIUM SUGAR FREE 100MG/10ML UDC PO SCH ×2 (09:59→17:19)
[2022-01-04] MEDS: HALOPERIDOL 2MG TABLET PO SCH ×2 (09:59→21:43)
[2022-01-04] MEDS: PANTOPRAZOLE SODIUM 40 MG/VIAL IV SCH (09:59)
[2022-01-04] MEDS: FOLIC ACID/VITAMIN B COMP W-C TABLET PO SCH (09:59)
[2022-01-04 10:57] LABS: BG BASE EXCESS -0.5 mmol/L (-2.0-2.0); BG CARBOXYHEMOGLOBIN 1.6 % (0.5-1.5); BG DEOXYHEMOGLOBIN 3.3 % (0.0-5.0); BG FRACTION INSPIRED OXYGEN 40; BG HCO3 ACT 23.8 mmol/L (22.0-26.0); BG METHEMOGLOBIN 0.3 % (0.0-1.5); BG OXYGEN SATURATION 96.6 % (92.0-98.5); BG OXYHEMOGLOBIN 94.8 % (94.0-97.0); BG PCO2 37.2 mmHg (35.0-45.0); BG PH 7.424 (7.350-7.450); BG PO2 93.8 mmHg (75.0-100.0); BG SAMPLE SITE RIGHT RADIAL; BG TOTAL HEMOGLOBIN 8.5 g/dL (12.0-18.0); BG VENT MODE COOL AEROSOL
[2022-01-04] MEDS: CEFEPIME 1,000 MG in DEXTROSE 5% WATER 50 ML IV SCH (17:00)
[2022-01-05] VITALS (95 sets, daily range): BP systolic 65–152; BP diastolic 27–106
[2022-01-05] MEDS: IPRATROPIUM/ALBUTEROL 0.5-3(2.5)MG/3ML NEB HHN SCH ×6 (00:05→20:59)
[2022-01-05] MEDS: BLOOD SUGAR DIAGNOSTIC STRIP TEST SCH ×6 (00:55→20:00)
[2022-01-05] MEDS: DEXT 10% WATER 1,000 ML IV SCH (00:56)
[2022-01-05] MEDS: METOCLOPRAMIDE HCL 10MG/2ML VIAL IV SCH ×4 (00:56→17:13)
[2022-01-05] MEDS: VANCOMYCIN 1000MG/20ML ORAL SOLN PO SCH ×4 (00:56→17:13)
[2022-01-05 05:37] LABS: HEMATOCRIT. 27.9 % (42.0-52.0); HEMOGLOBIN. 8.7 g/dL (14.0-18.0); MEAN CORPUSCULAR HEMOGLOBIN 31.3 pg (28.0-32.0); MEAN CORPUSCULAR VOLUME 99.8 fL (80.0-94.0); MEAN PLATELET VOLUME 8.3 fl (7.4-10.4); PLATELET 57 x1000/uL (130-400); RED BLOOD CELL COUNT 2.79 mill/uL (4.7-6.1); RED CELL DISTRIBUTION WIDTH 19.5 % (11.6-14.6)
[2022-01-05] MEDS: PHENYLEPHRINE 100 MG in DEXT 5% WATER 240 ML IV PRN ×3 (06:15→18:41)
[2022-01-05 08:07] LABS: PLATELET ESTIMATE DECREASED
[2022-01-05] MEDS: PANTOPRAZOLE SODIUM 40 MG/VIAL IV SCH (08:54)
[2022-01-05] MEDS: DOCUSATE SODIUM SUGAR FREE 100MG/10ML UDC PO SCH ×2 (08:54→17:12)
[2022-01-05] MEDS: FOLIC ACID/VITAMIN B COMP W-C TABLET PO SCH (08:55)
[2022-01-05] MEDS: MIDODRINE HCL 5MG TABLET PO SCH ×3 (08:55→17:13)
[2022-01-05] MEDS: AMIODARONE HCL 200 MG TABLET PO SCH ×2 (08:55→21:39)
[2022-01-05] MEDS: HALOPERIDOL 2MG TABLET PO SCH ×2 (08:55→21:40)
[2022-01-05] MEDS: LACTOBACILLUS GG CAPSULE PO SCH (10:39)
[2022-01-05] MEDS ORDERED: PHYTONADIONE 10MG/ML AMP SUBCUT SCH (11:30)
[2022-01-05 17:06] LABS: INSULIN AUTOANTIBODIES < 5.0 uU/mL (.)
[2022-01-05] MEDS: CEFEPIME 1,000 MG in DEXTROSE 5% WATER 50 ML IV SCH (17:13)
[2022-01-06] VITALS (98 sets, daily range): BP systolic 75–155; BP diastolic 28–93
[2022-01-06] MEDS: DEXT 10% WATER 1,000 ML IV SCH
[2022-01-06] MEDS: IPRATROPIUM/ALBUTEROL 0.5-3(2.5)MG/3ML NEB HHN SCH ×5 (00:20→21:00)
[2022-01-06] MEDS: VANCOMYCIN 1000MG/20ML ORAL SOLN PO SCH ×5 (00:59→23:54)
[2022-01-06] MEDS: METOCLOPRAMIDE HCL 10MG/2ML VIAL IV SCH ×5 (00:59→23:55)
[2022-01-06] MEDS: PHENYLEPHRINE 100 MG in DEXT 5% WATER 240 ML IV PRN ×3 (02:32→17:40)
[2022-01-06] MEDS: BLOOD SUGAR DIAGNOSTIC STRIP TEST SCH ×7 (04:00→23:33)
[2022-01-06 05:46] LABS: BASOPHILS % 0.2 % (0.0-2.0); HEMATOCRIT. 22.6 % (42.0-52.0); HEMOGLOBIN. 7.2 g/dL (14.0-18.0); LYMPHOCYTES % 11.1 % (20.0-50.0); MEAN CORPUSCULAR HEMOGLOBIN 31.3 pg (28.0-32.0); MEAN CORPUSCULAR VOLUME 97.8 fL (80.0-94.0); MEAN PLATELET VOLUME 8.7 fl (7.4-10.4); MONOCYTES % 6.3 % (2.0-8.0); NEUTROPHILS % 81.4 % (40.0-76.0); PLATELET 63 x1000/uL (130-400); RED BLOOD CELL COUNT 2.31 mill/uL (4.7-6.1); RED CELL DISTRIBUTION WIDTH 18.3 % (11.6-14.6)
[2022-01-06 06:01] LABS: INR 1.3
[2022-01-06] MEDS: DOCUSATE SODIUM SUGAR FREE 100MG/10ML UDC PO SCH ×2 (09:22→17:56)
[2022-01-06] MEDS: HALOPERIDOL 2MG TABLET PO SCH (09:23)
[2022-01-06] MEDS: FOLIC ACID/VITAMIN B COMP W-C TABLET PO SCH (09:23)
[2022-01-06] MEDS: MIDODRINE HCL 5MG TABLET PO SCH ×3 (09:23→17:56)
[2022-01-06] MEDS: LACTOBACILLUS GG CAPSULE PO SCH (09:23)
[2022-01-06] MEDS: PANTOPRAZOLE SODIUM 40 MG/VIAL IV SCH (09:23)
[2022-01-06] MEDS: AMIODARONE HCL 200 MG TABLET PO SCH ×2 (09:25→22:08)
[2022-01-06 09:55] LABS: HEMATOCRIT 23.1 % (42.0-52.0); HEMOGLOBIN 7.4 g/dL (14.0-18.0)
[2022-01-06] MEDS: NOREPINEPHRINE 32 MG in DEXT 5% WATER 218 ML IV PRN (13:00)
[2022-01-06] MEDS: ACETYLCYSTEINE 100MG/ML 10% VIAL 4ML INH SCH (14:45)
[2022-01-06] MEDS: CEFEPIME 1,000 MG in DEXTROSE 5% WATER 50 ML IV SCH (17:57)
[2022-01-07] VITALS (68 sets, daily range): BP systolic 67–135; BP diastolic 16–97
[2022-01-07] MEDS: PHENYLEPHRINE 100 MG in DEXT 5% WATER 240 ML IV PRN ×4 (00:57→23:53)
[2022-01-07] MEDS: IPRATROPIUM/ALBUTEROL 0.5-3(2.5)MG/3ML NEB HHN SCH ×6 (01:22→20:45)
[2022-01-07] MEDS: ACETYLCYSTEINE 100MG/ML 10% VIAL 4ML INH SCH ×3 (01:22→16:09)
[2022-01-07] MEDS: BLOOD SUGAR DIAGNOSTIC STRIP TEST SCH ×6 (04:00→23:52)
[2022-01-07] MEDS: METOCLOPRAMIDE HCL 10MG/2ML VIAL IV SCH ×4 (05:15→23:56)
[2022-01-07] MEDS: NOREPINEPHRINE 32 MG in DEXT 5% WATER 218 ML IV PRN (05:15)
[2022-01-07] MEDS: VANCOMYCIN 1000MG/20ML ORAL SOLN PO SCH ×4 (05:16→23:56)
[2022-01-07 05:59] LABS: BASOPHILS % 0.2 % (0.0-2.0); EOSINOPHILS % 0.4 % (0.0-5.0); HEMATOCRIT. 24.3 % (42.0-52.0); HEMOGLOBIN. 7.9 g/dL (14.0-18.0); LYMPHOCYTES % 8.1 % (20.0-50.0); MEAN CORPUSCULAR HEMOGLOBIN 31.9 pg (28.0-32.0); MEAN CORPUSCULAR VOLUME 98.2 fL (80.0-94.0); MEAN PLATELET VOLUME 9.3 fl (7.4-10.4); MONOCYTES % 6.3 % (2.0-8.0); PLATELET 51 x1000/uL (130-400); RED BLOOD CELL COUNT 2.47 mill/uL (4.7-6.1); RED CELL DISTRIBUTION WIDTH 18.7 % (11.6-14.6)
[2022-01-07 06:49] LABS: T4 FREE 0.49 ng/dL (0.76-1.46)
[2022-01-07] MEDS: LACTOBACILLUS GG CAPSULE PO SCH (09:07)
[2022-01-07] MEDS: FOLIC ACID/VITAMIN B COMP W-C TABLET PO SCH (09:07)
[2022-01-07] MEDS: AMIODARONE HCL 200 MG TABLET PO SCH ×2 (09:07→21:00)
[2022-01-07] MEDS: DOCUSATE SODIUM SUGAR FREE 100MG/10ML UDC PO SCH ×2 (09:07→17:00)
[2022-01-07] MEDS: MIDODRINE HCL 5MG TABLET PO SCH ×3 (09:07→17:00)
[2022-01-07] MEDS: HALOPERIDOL 0.5MG TABLET PO SCH ×2 (09:08→21:00)
[2022-01-07] MEDS: PANTOPRAZOLE SODIUM 40 MG/VIAL IV SCH (09:08)
[2022-01-07] MEDS: SODIUM CHLORIDE 23.4% 154 MEQ in DEXT 10% WATER 961.5 ML IV SCH (10:00)
[2022-01-07] MEDS: LEVOTHYROXINE SODIUM 100 MCG/ VIAL IV SCH (10:00)
[2022-01-07] MEDS: CEFEPIME 1,000 MG in DEXTROSE 5% WATER 50 ML IV SCH (17:00)
[2022-01-08] VITALS (100 sets, daily range): BP systolic 67–152; BP diastolic 18–95
[2022-01-08] MEDS: ACETYLCYSTEINE 100MG/ML 10% VIAL 4ML INH SCH ×3 (00:29→16:23)
[2022-01-08] MEDS: IPRATROPIUM/ALBUTEROL 0.5-3(2.5)MG/3ML NEB HHN SCH ×6 (00:29→21:20)
[2022-01-08 00:54] LABS: BASOPHILS % 0.4 % (0.0-2.0); EOSINOPHILS % 0.4 % (0.0-5.0); HEMATOCRIT. 26.9 % (42.0-52.0); HEMOGLOBIN. 8.9 g/dL (14.0-18.0); LYMPHOCYTES % 10.2 % (20.0-50.0); MEAN CORPUSCULAR HEMOGLOBIN 30.8 pg (28.0-32.0); MEAN CORPUSCULAR VOLUME 93.7 fL (80.0-94.0); MEAN PLATELET VOLUME 9.7 fl (7.4-10.4); PLATELET 84 x1000/uL (130-400); RED BLOOD CELL COUNT 2.88 mill/uL (4.7-6.1); RED CELL DISTRIBUTION WIDTH 17.6 % (11.6-14.6)
[2022-01-08] MEDS: BLOOD SUGAR DIAGNOSTIC STRIP TEST SCH ×5 (04:00→20:00)
[2022-01-08] MEDS: METOCLOPRAMIDE HCL 10MG/2ML VIAL IV SCH ×3 (05:22→17:07)
[2022-01-08] MEDS: VANCOMYCIN 1000MG/20ML ORAL SOLN PO SCH ×3 (05:23→17:07)
[2022-01-08 05:51] LABS: BASOPHILS % 0.3 % (0.0-2.0); EOSINOPHILS % 0.5 % (0.0-5.0); HEMATOCRIT. 26.2 % (42.0-52.0); HEMOGLOBIN. 8.6 g/dL (14.0-18.0); LYMPHOCYTES % 10.2 % (20.0-50.0); MEAN CORPUSCULAR HEMOGLOBIN 31.4 pg (28.0-32.0); MEAN CORPUSCULAR VOLUME 95.8 fL (80.0-94.0); MEAN PLATELET VOLUME 9.3 fl (7.4-10.4); MONOCYTES % 6.6 % (2.0-8.0); NEUTROPHILS % 82.4 % (40.0-76.0); PLATELET 83 x1000/uL (130-400); RED BLOOD CELL COUNT 2.74 mill/uL (4.7-6.1)
[2022-01-08] MEDS: PHENYLEPHRINE 100 MG in DEXT 5% WATER 240 ML IV PRN ×3 (08:47→22:30)
[2022-01-08] MEDS: LEVOTHYROXINE SODIUM 100 MCG/ VIAL IV SCH (09:00)
[2022-01-08] MEDS: FOLIC ACID/VITAMIN B COMP W-C TABLET PO SCH (09:00)
[2022-01-08] MEDS: AMIODARONE HCL 200 MG TABLET PO SCH ×2 (09:00→21:00)
[2022-01-08] MEDS: MIDODRINE HCL 5MG TABLET PO SCH ×4 (09:00→18:00)
[2022-01-08] MEDS: LACTOBACILLUS GG CAPSULE PO SCH (09:00)
[2022-01-08] MEDS: DOCUSATE SODIUM SUGAR FREE 100MG/10ML UDC PO SCH ×2 (09:00→17:07)
[2022-01-08] MEDS: PANTOPRAZOLE SODIUM 40 MG/VIAL IV SCH (09:00)
[2022-01-08] MEDS: SODIUM CHLORIDE 23.4% 154 MEQ in DEXT 10% WATER 961.5 ML IV SCH (11:00)
[2022-01-08] MEDS: HALOPERIDOL 0.5MG TABLET PO SCH ×2 (13:34→21:00)
[2022-01-08] MEDS: NOREPINEPHRINE 32 MG in DEXT 5% WATER 218 ML IV PRN (17:04)
[2022-01-08] MEDS: CEFEPIME 1,000 MG in DEXTROSE 5% WATER 50 ML IV SCH (17:07)
[2022-01-09] VITALS (95 sets, daily range): BP systolic 72–166; BP diastolic 40–96
[2022-01-09] MEDS: IPRATROPIUM/ALBUTEROL 0.5-3(2.5)MG/3ML NEB HHN SCH ×6 (00:32→20:30)
[2022-01-09] MEDS: ACETYLCYSTEINE 100MG/ML 10% VIAL 4ML INH SCH ×3 (00:33→14:00)
[2022-01-09] MEDS: METOCLOPRAMIDE HCL 10MG/2ML VIAL IV SCH ×4 (00:52→18:12)
[2022-01-09] MEDS: VANCOMYCIN 1000MG/20ML ORAL SOLN PO SCH ×4 (01:14→18:13)
[2022-01-09] MEDS: BLOOD SUGAR DIAGNOSTIC STRIP TEST SCH ×5 (04:00→18:13)
[2022-01-09 05:41] LABS: BASOPHILS % 0.3 % (0.0-2.0); EOSINOPHILS % 0.4 % (0.0-5.0); HEMATOCRIT. 26.2 % (42.0-52.0); HEMOGLOBIN. 8.5 g/dL (14.0-18.0); LYMPHOCYTES % 8.1 % (20.0-50.0); MEAN CORPUSCULAR HEMOGLOBIN 31.1 pg (28.0-32.0); MEAN CORPUSCULAR VOLUME 95.7 fL (80.0-94.0); MEAN PLATELET VOLUME 9.4 fl (7.4-10.4); MONOCYTES % 5.7 % (2.0-8.0); NEUTROPHILS % 85.5 % (40.0-76.0); PLATELET 131 x1000/uL (130-400); RED BLOOD CELL COUNT 2.74 mill/uL (4.7-6.1); RED CELL DISTRIBUTION WIDTH 17.7 % (11.6-14.6)
[2022-01-09] MEDS: DOCUSATE SODIUM SUGAR FREE 100MG/10ML UDC PO SCH ×2 (09:27→18:12)
[2022-01-09] MEDS: LACTOBACILLUS GG CAPSULE PO SCH (09:27)
[2022-01-09] MEDS: MIDODRINE HCL 5MG TABLET PO SCH ×3 (09:27→18:12)
[2022-01-09] MEDS: AMIODARONE HCL 200 MG TABLET PO SCH ×2 (09:27→22:20)
[2022-01-09] MEDS: PANTOPRAZOLE SODIUM 40 MG/VIAL IV SCH (09:27)
[2022-01-09] MEDS: LEVOTHYROXINE SODIUM 100 MCG/ VIAL IV SCH (09:27)
[2022-01-09] MEDS: NOREPINEPHRINE 32 MG in DEXT 5% WATER 218 ML IV PRN (09:48)
[2022-01-09] MEDS: HALOPERIDOL 0.5MG TABLET PO SCH ×2 (12:38→22:20)
[2022-01-09] MEDS: SODIUM CHLORIDE 23.4% 154 MEQ in DEXT 10% WATER 961.5 ML IV SCH (13:26)
[2022-01-09] MEDS: CEFEPIME 1,000 MG in DEXTROSE 5% WATER 50 ML IV SCH (18:11)
[2022-01-09] MEDS ORDERED: FAT EMULSIONS 500 ML IV SCH (21:00)
[2022-01-09] MEDS: TOTAL PARENTERAL NUTRITION 1,200 ML IV SCH (21:33)
[2022-01-10] VITALS (94 sets, daily range): BP systolic 78–138; BP diastolic 45–92
[2022-01-10] MEDS: BLOOD SUGAR DIAGNOSTIC STRIP TEST SCH ×4 (00:17→18:05)
[2022-01-10] MEDS: ACETYLCYSTEINE 100MG/ML 10% VIAL 4ML INH SCH ×3 (00:29→16:28)
[2022-01-10] MEDS: IPRATROPIUM/ALBUTEROL 0.5-3(2.5)MG/3ML NEB HHN SCH ×6 (00:29→21:06)
[2022-01-10] MEDS: VANCOMYCIN 1000MG/20ML ORAL SOLN PO SCH ×5 (00:37→23:48)
[2022-01-10] MEDS: METOCLOPRAMIDE HCL 10MG/2ML VIAL IV SCH ×5 (00:37→23:47)
[2022-01-10] MEDS: NOREPINEPHRINE 32 MG in DEXT 5% WATER 218 ML IV PRN (02:26)
[2022-01-10 05:45] LABS: BASOPHILS % 0.4 % (0.0-2.0); EOSINOPHILS % 0.7 % (0.0-5.0); HEMATOCRIT. 23.7 % (42.0-52.0); LYMPHOCYTES % 9.5 % (20.0-50.0); MEAN CORPUSCULAR HEMOGLOBIN 32.8 pg (28.0-32.0); MEAN CORPUSCULAR VOLUME 96.7 fL (80.0-94.0); MEAN PLATELET VOLUME 9.2 fl (7.4-10.4); MONOCYTES % 2.8 % (2.0-8.0); NEUTROPHILS % 86.6 % (40.0-76.0); PLATELET 109 x1000/uL (130-400); RED BLOOD CELL COUNT 2.45 mill/uL (4.7-6.1); RED CELL DISTRIBUTION WIDTH 17.7 % (11.6-14.6)
[2022-01-10 06:01] LABS: CHLORIDE 100 mEq/L (98-107)
[2022-01-10 06:15] LABS: PHOSPHORUS 5.6 mg/dL (2.5-4.9)
[2022-01-10] MEDS ORDERED: BLOOD SUGAR DIAGNOSTIC STRIP TEST SCH (09:00)
[2022-01-10] MEDS: DOCUSATE SODIUM SUGAR FREE 100MG/10ML UDC PO SCH ×2 (09:29→17:00)
[2022-01-10] MEDS: LACTOBACILLUS GG CAPSULE PO SCH (09:29)
[2022-01-10] MEDS: LEVOTHYROXINE SODIUM 100 MCG/ VIAL IV SCH (09:29)
[2022-01-10] MEDS: PANTOPRAZOLE SODIUM 40 MG/VIAL IV SCH (09:29)
[2022-01-10] MEDS: HALOPERIDOL 0.5MG TABLET PO SCH ×2 (09:30→21:27)
[2022-01-10] MEDS: PSYLLIUM SEED PACKET PO SCH ×3 (09:30→17:00)
[2022-01-10] MEDS: AMIODARONE HCL 200 MG TABLET PO SCH ×2 (09:30→21:27)
[2022-01-10] MEDS: MIDODRINE HCL 5MG TABLET PO SCH ×3 (09:31→17:00)
[2022-01-10] MEDS: CEFEPIME 1,000 MG in DEXTROSE 5% WATER 50 ML IV SCH (18:05)
[2022-01-10] MEDS: TOTAL PARENTERAL NUTRITION 1,200 ML IV SCH (21:57)
[2022-01-11] VITALS (92 sets, daily range): BP systolic 66–162; BP diastolic 44–85
[2022-01-11] MEDS: ACETYLCYSTEINE 100MG/ML 10% VIAL 4ML INH SCH ×2 (01:19→20:30)
[2022-01-11] MEDS: IPRATROPIUM/ALBUTEROL 0.5-3(2.5)MG/3ML NEB HHN SCH ×5 (01:19→20:50)
[2022-01-11] MEDS: BLOOD SUGAR DIAGNOSTIC STRIP TEST SCH ×4 (06:00→18:49)
[2022-01-11] MEDS: VANCOMYCIN 1000MG/20ML ORAL SOLN PO SCH ×3 (06:30→18:51)
[2022-01-11] MEDS: METOCLOPRAMIDE HCL 10MG/2ML VIAL IV SCH ×3 (06:30→18:52)
[2022-01-11] MEDS: AMIODARONE HCL 200 MG TABLET PO SCH ×2 (08:01→22:02)
[2022-01-11] MEDS: LACTOBACILLUS GG CAPSULE PO SCH (08:01)
[2022-01-11] MEDS: HALOPERIDOL 0.5MG TABLET PO SCH ×2 (08:01→22:02)
[2022-01-11] MEDS: PSYLLIUM SEED PACKET PO SCH ×3 (08:02→16:35)
[2022-01-11] MEDS: DOCUSATE SODIUM SUGAR FREE 100MG/10ML UDC PO SCH ×2 (08:02→16:35)
[2022-01-11] MEDS: PANTOPRAZOLE SODIUM 40 MG/VIAL IV SCH (08:02)
[2022-01-11] MEDS: LEVOTHYROXINE SODIUM 100 MCG/ VIAL IV SCH (08:03)
[2022-01-11] MEDS: MIDODRINE HCL 5MG TABLET PO SCH ×3 (08:03→16:37)
[2022-01-11] MEDS: CEFEPIME 1,000 MG in DEXTROSE 5% WATER 50 ML IV SCH (16:35)
[2022-01-11] MEDS: TOTAL PARENTERAL NUTRITION 1,200 ML IV SCH (22:02)
[2022-01-12] VITALS (90 sets, daily range): BP systolic 74–185; BP diastolic 15–130
[2022-01-12] MEDS: IPRATROPIUM/ALBUTEROL 0.5-3(2.5)MG/3ML NEB HHN SCH ×6 (00:42→20:58)
[2022-01-12] MEDS: BLOOD SUGAR DIAGNOSTIC STRIP TEST SCH ×4 (00:52→17:26)
[2022-01-12] MEDS: VANCOMYCIN 1000MG/20ML ORAL SOLN PO SCH ×4 (00:52→17:26)
[2022-01-12] MEDS: METOCLOPRAMIDE HCL 10MG/2ML VIAL IV SCH ×4 (00:52→17:26)
[2022-01-12 06:04] LABS: CHLORIDE 105 mEq/L (98-107)
[2022-01-12 06:15] LABS: PHOSPHORUS 3.3 mg/dL (2.5-4.9)
[2022-01-12] MEDS: ACETYLCYSTEINE 100MG/ML 10% VIAL 4ML INH SCH (08:21)
[2022-01-12] MEDS: PANTOPRAZOLE SODIUM 40 MG/VIAL IV SCH (08:55)
[2022-01-12] MEDS: DOCUSATE SODIUM SUGAR FREE 100MG/10ML UDC PO SCH ×2 (08:55→17:26)
[2022-01-12] MEDS: PHYTONADIONE 10MG/ML AMP SUBCUT SCH (08:55)
[2022-01-12] MEDS: MIDODRINE HCL 5MG TABLET PO SCH ×3 (08:56→17:26)
[2022-01-12] MEDS: AMIODARONE HCL 200 MG TABLET PO SCH ×2 (08:56→21:33)
[2022-01-12] MEDS: HALOPERIDOL 0.5MG TABLET PO SCH ×2 (08:57→21:33)
[2022-01-12] MEDS: PSYLLIUM SEED PACKET PO SCH ×3 (08:57→17:26)
[2022-01-12] MEDS: LACTOBACILLUS GG CAPSULE PO SCH (08:58)
[2022-01-12] MEDS: LEVOTHYROXINE SODIUM 100 MCG/ VIAL IV SCH (08:58)
[2022-01-12 09:07] LABS: BG BASE EXCESS 2.4 mmol/L (-2.0-2.0); BG CARBOXYHEMOGLOBIN 1.4 % (0.5-1.5); BG DEOXYHEMOGLOBIN 12.4 % (0.0-5.0); BG FRACTION INSPIRED OXYGEN 44; BG HCO3 ACT 27.1 mmol/L (22.0-26.0); BG METHEMOGLOBIN 0.2 % (0.0-1.5); BG OXYGEN SATURATION 87.4 % (92.0-98.5); BG PCO2 43.2 mmHg (35.0-45.0); BG PH 7.416 (7.350-7.450); BG PO2 56.4 mmHg (75.0-100.0); BG SAMPLE SITE RIGHT RADIAL; BG TOTAL HEMOGLOBIN 7.3 g/dL (12.0-18.0); BG VENT MODE NASAL CANNULA
[2022-01-12] MEDS ORDERED: HALOPERIDOL LACTATE 5MG/ML VIAL IM NR (14:45)
[2022-01-12] MEDS: CEFEPIME 1,000 MG in DEXTROSE 5% WATER 50 ML IV SCH (16:00)
[2022-01-12 20:22] LABS: BASOPHILS % 0.3 % (0.0-2.0); EOSINOPHILS % 0.2 % (0.0-5.0); HEMATOCRIT. 25.4 % (42.0-52.0); HEMOGLOBIN. 8.2 g/dL (14.0-18.0); LYMPHOCYTES % 7.5 % (20.0-50.0); MEAN CORPUSCULAR HEMOGLOBIN 31.2 pg (28.0-32.0); MEAN CORPUSCULAR VOLUME 97.1 fL (80.0-94.0); MEAN PLATELET VOLUME 9.6 fl (7.4-10.4); MONOCYTES % 5.2 % (2.0-8.0); NEUTROPHILS % 86.8 % (40.0-76.0); PLATELET 120 x1000/uL (130-400); RED BLOOD CELL COUNT 2.62 mill/uL (4.7-6.1); RED CELL DISTRIBUTION WIDTH 17.9 % (11.6-14.6)
[2022-01-12 20:29] LABS: INR 1.1; PARTIAL THROMBOPLASTIN TIME 32.2 sec (23.4-31.0); PROTHROMBIN TIME 11.4 sec (9.6-11.0)
[2022-01-12] MEDS: NOREPINEPHRINE 32 MG in DEXT 5% WATER 218 ML IV PRN (21:34)
[2022-01-12] MEDS: FAT EMULSIONS 250 ML IV SCH (21:35)
[2022-01-13] VITALS (84 sets, daily range): BP systolic 68–171; BP diastolic 28–84
[2022-01-13] MEDS: FAT EMULSIONS 250 ML IV SCH (00:38)
[2022-01-13] MEDS: VANCOMYCIN 1000MG/20ML ORAL SOLN PO SCH ×5 (00:39→23:21)
[2022-01-13] MEDS: TOTAL PARENTERAL NUTRITION 1,200 ML IV SCH ×2 (00:42→20:37)
[2022-01-13] MEDS: METOCLOPRAMIDE HCL 10MG/2ML VIAL IV SCH ×5 (00:42→23:20)
[2022-01-13] MEDS: IPRATROPIUM/ALBUTEROL 0.5-3(2.5)MG/3ML NEB HHN SCH ×5 (02:35→21:05)
[2022-01-13 05:45] LABS: BASOPHILS % 0.6 % (0.0-2.0); EOSINOPHILS % 0.8 % (0.0-5.0); HEMATOCRIT. 25.4 % (42.0-52.0); HEMOGLOBIN. 8.8 g/dL (14.0-18.0); LYMPHOCYTES % 9.9 % (20.0-50.0); MEAN CORPUSCULAR HEMOGLOBIN 34.1 pg (28.0-32.0); MEAN CORPUSCULAR VOLUME 98.6 fL (80.0-94.0); MEAN PLATELET VOLUME 9.4 fl (7.4-10.4); MONOCYTES % 4.7 % (2.0-8.0); PLATELET 138 x1000/uL (130-400); RED BLOOD CELL COUNT 2.58 mill/uL (4.7-6.1); RED CELL DISTRIBUTION WIDTH 18.5 % (11.6-14.6)
[2022-01-13 08:03] LABS: BG BASE EXCESS 0.9 mmol/L (-2.0-2.0); BG CARBOXYHEMOGLOBIN 0.9 % (0.5-1.5); BG DEOXYHEMOGLOBIN 5.8 % (0.0-5.0); BG HCO3 ACT 25.2 mmol/L (22.0-26.0); BG METHEMOGLOBIN 0.2 % (0.0-1.5); BG OXYGEN SATURATION 94.1 % (92.0-98.5); BG OXYHEMOGLOBIN 93.1 % (94.0-97.0); BG PCO2 38.5 mmHg (35.0-45.0); BG PH 7.433 (7.350-7.450); BG PO2 75.7 mmHg (75.0-100.0); BG SAMPLE SITE RIGHT RADIAL; BG TOTAL HEMOGLOBIN 7.6 g/dL (12.0-18.0); BG VENT MODE MASK - BIPAP
[2022-01-13] MEDS: DOCUSATE SODIUM SUGAR FREE 100MG/10ML UDC PO SCH ×2 (08:23→17:00)
[2022-01-13] MEDS: PANTOPRAZOLE SODIUM 40 MG/VIAL IV SCH (08:24)
[2022-01-13] MEDS: AMIODARONE HCL 200 MG TABLET PO SCH ×2 (08:24→20:37)
[2022-01-13] MEDS: HALOPERIDOL 0.5MG TABLET PO SCH ×2 (08:24→20:37)
[2022-01-13] MEDS: MIDODRINE HCL 5MG TABLET PO SCH ×3 (08:24→17:45)
[2022-01-13] MEDS: LEVOTHYROXINE SODIUM 100 MCG/ VIAL IV SCH (08:25)
[2022-01-13] MEDS ORDERED: POLYMYXIN B SULFATE 500000 UNITS/VIAL ONE (08:53)
[2022-01-13] MEDS ORDERED: LIDOCAINE HCL 1% 50ML VIAL (10MG/ML) ONE (08:54)
[2022-01-13] MEDS ORDERED: BUPIVACAINE HCL/PF 0.5% (5MG/ML) 10ML ONE (08:54)
[2022-01-13] MEDS: BLOOD SUGAR DIAGNOSTIC STRIP TEST SCH (09:00)
[2022-01-13] MEDS: PSYLLIUM SEED PACKET PO SCH ×3 (09:00→17:45)
[2022-01-13] MEDS ORDERED: SUCCINYLCHOLINE CHLORIDE 200MG/10ML IV ONE (10:22)
[2022-01-13] MEDS ORDERED: ETOMIDATE 2MG/ML 10ML VIAL IV ONE (10:22)
[2022-01-13] MEDS ORDERED: MIDAZOLAM HCL 2 MG/2 ML VIAL ONE (10:23)
[2022-01-13] MEDS ORDERED: MORPHINE SULFATE 4 MG/ML CPJ (NOT FOR IM USE) IV PRN (12:00)
[2022-01-13 12:38] LABS: BG BASE EXCESS 1.8 mmol/L (-2.0-2.0); BG CARBOXYHEMOGLOBIN 0.9 % (0.5-1.5); BG FRACTION INSPIRED OXYGEN 75; BG HCO3 ACT 28.6 mmol/L (22.0-26.0); BG METHEMOGLOBIN 0.3 % (0.0-1.5); BG OXYGEN SATURATION 90.9 % (92.0-98.5); BG OXYHEMOGLOBIN 89.8 % (94.0-97.0); BG PCO2 56.3 mmHg (35.0-45.0); BG PH 7.323 (7.350-7.450); BG PO2 69.8 mmHg (75.0-100.0); BG SAMPLE SITE LEFT RADIAL; BG VENT MODE VENT - AC
[2022-01-13] MEDS: ACETYLCYSTEINE 100MG/ML 10% VIAL 4ML INH SCH (13:05)
[2022-01-13] MEDS: LACTOBACILLUS GG CAPSULE PO SCH (16:00)
[2022-01-13] MEDS: CEFEPIME 1,000 MG in DEXTROSE 5% WATER 50 ML IV SCH (16:01)
[2022-01-13] MEDS: PROPOFOL 10MG/ML 100ML 100 ML IV PRN (20:38)
[2022-01-14] VITALS (103 sets, daily range): BP systolic 67–131; BP diastolic 36–97
[2022-01-14] MEDS: IPRATROPIUM/ALBUTEROL 0.5-3(2.5)MG/3ML NEB HHN SCH ×6 (00:28→20:13)
[2022-01-14] MEDS: ACETYLCYSTEINE 100MG/ML 10% VIAL 4ML INH SCH ×3 (00:28→14:58)
[2022-01-14 05:47] LABS: HEMATOCRIT. 24.7 % (42.0-52.0); HEMOGLOBIN. 7.7 g/dL (14.0-18.0); MEAN CORPUSCULAR HEMOGLOBIN 30.8 pg (28.0-32.0); MEAN CORPUSCULAR VOLUME 98.4 fL (80.0-94.0); MEAN PLATELET VOLUME 9.7 fl (7.4-10.4); PLATELET 143 x1000/uL (130-400); RED BLOOD CELL COUNT 2.51 mill/uL (4.7-6.1); RED CELL DISTRIBUTION WIDTH 18.4 % (11.6-14.6)
[2022-01-14 06:08] LABS: PHOSPHORUS 2.7 mg/dL (2.5-4.9)
[2022-01-14] MEDS: METOCLOPRAMIDE HCL 10MG/2ML VIAL IV SCH ×4 (06:19→23:27)
[2022-01-14] MEDS: VANCOMYCIN 1000MG/20ML ORAL SOLN PO SCH ×4 (06:19→23:27)
[2022-01-14] MEDS: PROPOFOL 10MG/ML 100ML 100 ML IV PRN (06:20)
[2022-01-14] MEDS: NOREPINEPHRINE 32 MG in DEXT 5% WATER 218 ML IV PRN ×2 (06:20→20:15)
[2022-01-14] MEDS: BLOOD SUGAR DIAGNOSTIC STRIP TEST SCH (09:18)
[2022-01-14] MEDS: DOCUSATE SODIUM SUGAR FREE 100MG/10ML UDC PO SCH ×2 (09:29→17:48)
[2022-01-14] MEDS: AMIODARONE HCL 200 MG TABLET PO SCH ×2 (09:29→20:14)
[2022-01-14] MEDS: PANTOPRAZOLE SODIUM 40 MG/VIAL IV SCH (09:29)
[2022-01-14] MEDS: HALOPERIDOL 0.5MG TABLET PO SCH ×2 (09:29→20:14)
[2022-01-14] MEDS: LACTOBACILLUS GG CAPSULE PO SCH (09:29)
[2022-01-14] MEDS: PSYLLIUM SEED PACKET PO SCH ×3 (09:29→17:48)
[2022-01-14] MEDS: MIDODRINE HCL 5MG TABLET PO SCH ×3 (09:29→17:48)
[2022-01-14] MEDS: LEVOTHYROXINE SODIUM 100 MCG/ VIAL IV SCH (09:30)
[2022-01-14] MEDS ORDERED: PROPOFOL 10MG/ML 100ML 100 ML IV PRN (10:15)
[2022-01-14 10:16] LABS: BG BASE EXCESS 4.3 mmol/L (-2.0-2.0); BG CARBOXYHEMOGLOBIN 0.9 % (0.5-1.5); BG DEOXYHEMOGLOBIN 3.5 % (0.0-5.0); BG FRACTION INSPIRED OXYGEN 60; BG HCO3 ACT 28.7 mmol/L (22.0-26.0); BG METHEMOGLOBIN 0.3 % (0.0-1.5); BG OXYGEN SATURATION 96.5 % (92.0-98.5); BG OXYHEMOGLOBIN 95.3 % (94.0-97.0); BG PCO2 42.4 mmHg (35.0-45.0); BG PH 7.448 (7.350-7.450); BG PO2 92.4 mmHg (75.0-100.0); BG SAMPLE SITE RIGHT RADIAL; BG TOTAL HEMOGLOBIN 8.6 g/dL (12.0-18.0); BG TOTAL RESPIRATORY RATE 19 b/min; BG VENT MODE VENT - AC
[2022-01-14] MEDS ORDERED: ALTEPLASE 2MG/VIAL ITC NR (10:30)
[2022-01-14] MEDS ORDERED: NALOXONE HCL 0.4MG/ML VIAL IV PRN (15:45)
[2022-01-14] MEDS: CEFEPIME 1,000 MG in DEXTROSE 5% WATER 50 ML IV SCH (16:24)
[2022-01-14] MEDS: TOTAL PARENTERAL NUTRITION 1,200 ML IV SCH (20:14)
[2022-01-15] VITALS (116 sets, daily range): BP systolic 48–173; BP diastolic 29–95
[2022-01-15] MEDS: ACETYLCYSTEINE 100MG/ML 10% VIAL 4ML INH SCH ×3 (00:46→16:10)
[2022-01-15] MEDS: IPRATROPIUM/ALBUTEROL 0.5-3(2.5)MG/3ML NEB HHN SCH ×6 (00:46→20:11)
[2022-01-15 05:40] LABS: PHOSPHORUS 2.8 mg/dL (2.5-4.9)
[2022-01-15] MEDS: METOCLOPRAMIDE HCL 10MG/2ML VIAL IV SCH ×3 (06:37→17:55)
[2022-01-15] MEDS: VANCOMYCIN 1000MG/20ML ORAL SOLN PO SCH ×3 (06:37→17:56)
[2022-01-15 07:58] LABS: PLATELET ESTIMATE NORMAL
[2022-01-15 08:59] LABS: BG BASE EXCESS 2.7 mmol/L (-2.0-2.0); BG CARBOXYHEMOGLOBIN 0.8 % (0.5-1.5); BG DEOXYHEMOGLOBIN 5.1 % (0.0-5.0); BG FRACTION INSPIRED OXYGEN 35; BG HCO3 ACT 26.4 mmol/L (22.0-26.0); BG METHEMOGLOBIN 1.2 % (0.0-1.5); BG OXYGEN SATURATION 94.8 % (92.0-98.5); BG OXYHEMOGLOBIN 92.9 % (94.0-97.0); BG PCO2 35.7 mmHg (35.0-45.0); BG PH 7.486 (7.350-7.450); BG SAMPLE SITE RIGHT RADIAL; BG TOTAL HEMOGLOBIN 6.5 g/dL (12.0-18.0); BG VENT MODE VENT - AC
[2022-01-15] MEDS: BLOOD SUGAR DIAGNOSTIC STRIP TEST SCH (09:00)
[2022-01-15] MEDS: PSYLLIUM SEED PACKET PO SCH ×3 (09:22→17:55)
[2022-01-15] MEDS: PANTOPRAZOLE SODIUM 40 MG/VIAL IV SCH (09:22)
[2022-01-15] MEDS: LACTOBACILLUS GG CAPSULE PO SCH (09:23)
[2022-01-15] MEDS: LEVOTHYROXINE SODIUM 100 MCG/ VIAL IV SCH (09:23)
[2022-01-15] MEDS: DOCUSATE SODIUM SUGAR FREE 100MG/10ML UDC PO SCH ×2 (09:23→17:55)
[2022-01-15] MEDS: HALOPERIDOL 0.5MG TABLET PO SCH ×2 (09:23→21:34)
[2022-01-15] MEDS: AMIODARONE HCL 200 MG TABLET PO SCH ×2 (09:23→21:34)
[2022-01-15] MEDS: MIDODRINE HCL 5MG TABLET PO SCH ×3 (09:23→17:56)
[2022-01-15 10:03] LABS: BASOPHILS % 0.4 % (0.0-2.0); EOSINOPHILS % 0.2 % (0.0-5.0); LYMPHOCYTES % 15.7 % (20.0-50.0); MEAN CORPUSCULAR HEMOGLOBIN 31.4 pg (28.0-32.0); MEAN CORPUSCULAR VOLUME 98.2 fL (80.0-94.0); MEAN PLATELET VOLUME 8.1 fl (7.4-10.4); MONOCYTES % 10.5 % (2.0-8.0); NEUTROPHILS % 73.2 % (40.0-76.0); PLATELET 127 x1000/uL (130-400); RED BLOOD CELL COUNT 2.11 mill/uL (4.7-6.1); RED CELL DISTRIBUTION WIDTH 18.3 % (11.6-14.6)
[2022-01-15 10:15] LABS: HEMATOCRIT. 20.7 % (42.0-52.0); HEMOGLOBIN. 6.6 g/dL (14.0-18.0)
[2022-01-15] MEDS ORDERED: PROPOFOL 10MG/ML 100ML 100 ML IV PRN (12:00)
[2022-01-15] MEDS: CEFEPIME 1,000 MG in DEXTROSE 5% WATER 50 ML IV SCH (16:40)
[2022-01-15 17:48] LABS: HEMATOCRIT 30.3 % (42.0-52.0); HEMOGLOBIN 9.7 g/dL (14.0-18.0)
[2022-01-15] MEDS: FAT EMULSIONS 250 ML IV SCH (21:33)
[2022-01-15] MEDS: TOTAL PARENTERAL NUTRITION 1,200 ML IV SCH (21:34)
[2022-01-15] MEDS: NOREPINEPHRINE 32 MG in DEXT 5% WATER 218 ML IV PRN (22:32)
[2022-01-16] VITALS (90 sets, daily range): BP systolic 62–207; BP diastolic 46–98
[2022-01-16] MEDS: METOCLOPRAMIDE HCL 10MG/2ML VIAL IV SCH ×4 (00:06→18:41)
[2022-01-16] MEDS: VANCOMYCIN 1000MG/20ML ORAL SOLN PO SCH ×4 (00:07→18:00)
[2022-01-16] MEDS: IPRATROPIUM/ALBUTEROL 0.5-3(2.5)MG/3ML NEB HHN SCH ×6 (00:08→19:53)
[2022-01-16] MEDS: ACETYLCYSTEINE 100MG/ML 10% VIAL 4ML INH SCH ×3 (00:08→16:47)
[2022-01-16] MEDS: FAT EMULSIONS 250 ML IV SCH (01:30)
[2022-01-16 06:29] LABS: HEMATOCRIT. 27.3 % (42.0-52.0); HEMOGLOBIN. 9.6 g/dL (14.0-18.0); MEAN CORPUSCULAR HEMOGLOBIN 33.1 pg (28.0-32.0); MEAN CORPUSCULAR VOLUME 94.7 fL (80.0-94.0); MEAN PLATELET VOLUME 8.1 fl (7.4-10.4); PLATELET 140 x1000/uL (130-400); RED BLOOD CELL COUNT 2.89 mill/uL (4.7-6.1); RED CELL DISTRIBUTION WIDTH 19.2 % (11.6-14.6)
[2022-01-16 06:45] LABS: PHOSPHORUS 2.2 mg/dL (2.5-4.9)
[2022-01-16 07:52] LABS: ATYPICAL LYMPHOCYTES 1; NUCLEATED RED BLOOD CELLS 1 /100 WBC
[2022-01-16 07:53] LABS: PLATELET ESTIMATE NORMAL
[2022-01-16 08:25] LABS: BG CARBOXYHEMOGLOBIN 0.9 % (0.5-1.5); BG DEOXYHEMOGLOBIN 3.7 % (0.0-5.0); BG FRACTION INSPIRED OXYGEN 35; BG HCO3 ACT 26.1 mmol/L (22.0-26.0); BG METHEMOGLOBIN 0.3 % (0.0-1.5); BG OXYGEN SATURATION 96.3 % (92.0-98.5); BG OXYHEMOGLOBIN 95.1 % (94.0-97.0); BG PCO2 34.2 mmHg (35.0-45.0); BG PH 7.501 (7.350-7.450); BG PO2 82.5 mmHg (75.0-100.0); BG SAMPLE SITE RIGHT RADIAL; BG TOTAL HEMOGLOBIN 9.4 g/dL (12.0-18.0); BG VENT MODE VENT - AC
[2022-01-16] MEDS: PSYLLIUM SEED PACKET PO SCH ×3 (08:33→17:00)
[2022-01-16] MEDS: MIDODRINE HCL 5MG TABLET PO SCH ×3 (08:33→17:00)
[2022-01-16] MEDS: HALOPERIDOL 0.5MG TABLET PO SCH ×2 (08:33→21:00)
[2022-01-16] MEDS: AMIODARONE HCL 200 MG TABLET PO SCH ×2 (08:34→21:00)
[2022-01-16] MEDS: LACTOBACILLUS GG CAPSULE PO SCH (08:34)
[2022-01-16] MEDS: DOCUSATE SODIUM SUGAR FREE 100MG/10ML UDC PO SCH ×2 (08:34→17:00)
[2022-01-16] MEDS: PANTOPRAZOLE SODIUM 40 MG/VIAL IV SCH (08:34)
[2022-01-16] MEDS: ACETAMINOPHEN 650MG/20.3ML UDC PO PRN (08:45)
[2022-01-16] MEDS: LEVOTHYROXINE SODIUM 100 MCG/ VIAL IV SCH (09:00)
[2022-01-16] MEDS: BLOOD SUGAR DIAGNOSTIC STRIP TEST SCH (09:00)
[2022-01-16] MEDS ORDERED: SODIUM PHOS,M-BASIC-D-BASIC 20 MM in DEXT 5% WATER 243.3333 ML IV ONE (09:00)
[2022-01-16] MEDS ORDERED: DIATR MEGLU/DIATRIZOATE SOLN 120ML ONE (11:15)
[2022-01-16] MEDS ORDERED: PROPOFOL 10MG/ML 100ML 100 ML IV PRN (14:30)
[2022-01-16] MEDS: CEFEPIME 1,000 MG in DEXTROSE 5% WATER 50 ML IV SCH (16:00)
[2022-01-16] MEDS: TOTAL PARENTERAL NUTRITION 1,200 ML IV SCH (21:21)
[2022-01-17] VITALS (95 sets, daily range): BP systolic 60–178; BP diastolic 34–92
[2022-01-17] MEDS: IPRATROPIUM/ALBUTEROL 0.5-3(2.5)MG/3ML NEB HHN SCH ×6 (00:14→20:07)
[2022-01-17] MEDS: METOCLOPRAMIDE HCL 10MG/2ML VIAL IV SCH ×4 (00:35→17:53)
[2022-01-17] MEDS: VANCOMYCIN 1000MG/20ML ORAL SOLN PO SCH ×4 (05:37→17:53)
[2022-01-17] MEDS: NOREPINEPHRINE 32 MG in DEXT 5% WATER 218 ML IV PRN ×2 (05:38→15:00)
[2022-01-17] MEDS: PHENYLEPHRINE 100 MG in DEXT 5% WATER 240 ML IV PRN (05:39)
[2022-01-17 06:50] LABS: PHOSPHORUS 4.1 mg/dL (2.5-4.9)
[2022-01-17] MEDS: ACETYLCYSTEINE 100MG/ML 10% VIAL 4ML INH SCH ×2 (08:45→16:42)
[2022-01-17 09:30] LABS: BG BASE EXCESS 6.7 mmol/L (-2.0-2.0); BG CARBOXYHEMOGLOBIN 1.3 % (0.5-1.5); BG DEOXYHEMOGLOBIN 6.4 % (0.0-5.0); BG FRACTION INSPIRED OXYGEN 35; BG HCO3 ACT 30.3 mmol/L (22.0-26.0); BG METHEMOGLOBIN 0.3 % (0.0-1.5); BG OXYGEN SATURATION 93.5 % (92.0-98.5); BG PCO2 39.5 mmHg (35.0-45.0); BG PH 7.503 (7.350-7.450); BG SAMPLE SITE LEFT RADIAL; BG VENT MODE VENT - AC
[2022-01-17] MEDS: PANTOPRAZOLE SODIUM 40 MG/VIAL IV SCH (09:36)
[2022-01-17] MEDS: DOCUSATE SODIUM SUGAR FREE 100MG/10ML UDC PO SCH ×2 (09:37→17:00)
[2022-01-17] MEDS: PSYLLIUM SEED PACKET PO SCH ×3 (09:37→17:52)
[2022-01-17] MEDS: BLOOD SUGAR DIAGNOSTIC STRIP TEST SCH (09:37)
[2022-01-17] MEDS: HALOPERIDOL 0.5MG TABLET PO SCH ×2 (09:37→22:22)
[2022-01-17] MEDS: LACTOBACILLUS GG CAPSULE PO SCH (09:37)
[2022-01-17] MEDS: MIDODRINE HCL 5MG TABLET PO SCH ×3 (09:37→17:53)
[2022-01-17] MEDS: AMIODARONE HCL 200 MG TABLET PO SCH ×2 (09:37→21:42)
[2022-01-17] MEDS: LEVOTHYROXINE SODIUM 100 MCG/ VIAL IV SCH (09:37)
[2022-01-17 13:10] LABS: HEMATOCRIT. 24.1 % (42.0-52.0); HEMOGLOBIN. 8.3 g/dL (14.0-18.0); MEAN CORPUSCULAR HEMOGLOBIN 32.9 pg (28.0-32.0); MEAN CORPUSCULAR VOLUME 95.7 fL (80.0-94.0); RED BLOOD CELL COUNT 2.52 mill/uL (4.7-6.1); RED CELL DISTRIBUTION WIDTH 19.9 % (11.6-14.6)
[2022-01-17 13:51] LABS: PLATELET ESTIMATE NORMAL
[2022-01-17] MEDS: CEFEPIME 1,000 MG in DEXTROSE 5% WATER 50 ML IV SCH (17:52)
[2022-01-17] MEDS: PROPOFOL 10MG/ML 100ML 100 ML IV PRN (18:08)
[2022-01-17] MEDS ORDERED: COLISTIMETHATE SODIUM 150MG/VIAL INH SCH (19:00)
[2022-01-17] MEDS ORDERED: VANCOMYCIN 1500MG in DEXTROSE 5% WATER 250ML IV NR (20:00)
[2022-01-17] MEDS: TOTAL PARENTERAL NUTRITION 1,200 ML IV SCH (21:51)
[2022-01-18] VITALS (61 sets, daily range): BP systolic 68–170; BP diastolic 35–77
[2022-01-18] MEDS: COLISTIMETHATE SODIUM 150MG/VIAL INH SCH ×3 (00:11→20:18)
[2022-01-18] MEDS: IPRATROPIUM/ALBUTEROL 0.5-3(2.5)MG/3ML NEB HHN SCH ×6 (00:13→20:18)
[2022-01-18] MEDS: VANCOMYCIN 1000MG/20ML ORAL SOLN PO SCH ×5 (00:32→23:03)
[2022-01-18] MEDS: METOCLOPRAMIDE HCL 10MG/2ML VIAL IV SCH ×5 (00:32→23:03)
[2022-01-18 06:17] LABS: HEMATOCRIT. 24.1 % (42.0-52.0); HEMOGLOBIN. 7.8 g/dL (14.0-18.0); MEAN CORPUSCULAR VOLUME 95.4 fL (80.0-94.0); MEAN PLATELET VOLUME 9.1 fl (7.4-10.4); PLATELET 171 x1000/uL (130-400); RED BLOOD CELL COUNT 2.52 mill/uL (4.7-6.1); RED CELL DISTRIBUTION WIDTH 20.2 % (11.6-14.6)
[2022-01-18 06:27] LABS: PHOSPHORUS 4.1 mg/dL (2.5-4.9)
[2022-01-18] MEDS: PANTOPRAZOLE SODIUM 40 MG/VIAL IV SCH (09:50)
[2022-01-18] MEDS: AMIODARONE HCL 200 MG TABLET PO SCH ×2 (09:51→21:44)
[2022-01-18] MEDS: LEVOTHYROXINE SODIUM 100 MCG/ VIAL IV SCH (09:51)
[2022-01-18] MEDS: DOCUSATE SODIUM SUGAR FREE 100MG/10ML UDC PO SCH ×2 (09:51→17:00)
[2022-01-18] MEDS: PSYLLIUM SEED PACKET PO SCH ×3 (09:51→17:00)
[2022-01-18] MEDS: LACTOBACILLUS GG CAPSULE PO SCH (09:51)
[2022-01-18] MEDS: HALOPERIDOL 0.5MG TABLET PO SCH ×2 (09:51→21:44)
[2022-01-18] MEDS: MIDODRINE HCL 5MG TABLET PO SCH ×3 (09:52→17:00)
[2022-01-18] MEDS: BLOOD SUGAR DIAGNOSTIC STRIP TEST SCH (09:52)
[2022-01-18] MEDS: NOREPINEPHRINE 32 MG in DEXT 5% WATER 218 ML IV PRN (09:54)
[2022-01-18 10:41] LABS: PLATELET ESTIMATE NORMAL
[2022-01-18 11:06] LABS: BG BASE EXCESS 2.2 mmol/L (-2.0-2.0); BG CARBOXYHEMOGLOBIN 0.9 % (0.5-1.5); BG DEOXYHEMOGLOBIN 2.7 % (0.0-5.0); BG FRACTION INSPIRED OXYGEN 35; BG HCO3 ACT 26.4 mmol/L (22.0-26.0); BG METHEMOGLOBIN 0.3 % (0.0-1.5); BG OXYGEN SATURATION 97.3 % (92.0-98.5); BG OXYHEMOGLOBIN 96.1 % (94.0-97.0); BG PCO2 39.3 mmHg (35.0-45.0); BG PH 7.445 (7.350-7.450); BG PO2 105.9 mmHg (75.0-100.0); BG SAMPLE SITE RIGHT RADIAL; BG TOTAL HEMOGLOBIN 8.1 g/dL (12.0-18.0); BG VENT MODE VENT - AC
[2022-01-18] MEDS: PROPOFOL 10MG/ML 100ML 100 ML IV PRN (11:47)
[2022-01-18] MEDS: CEFEPIME 1,000 MG in DEXTROSE 5% WATER 50 ML IV SCH (16:07)
[2022-01-18] MEDS ORDERED: IOHEXOL-300 100 ML BOTTLE ONE (18:33)
[2022-01-18] MEDS ORDERED: CEFEPIME 1,000 MG in DEXTROSE 5% WATER 50 ML IV SCH (19:00)
[2022-01-18] MEDS: TOTAL PARENTERAL NUTRITION 1,200 ML IV SCH (21:47)
[2022-01-18] MEDS: EPOETIN ALFA 4000UNITS/ML VIAL SUBCUT SCH (22:43)
[2022-01-19] VITALS (91 sets, daily range): BP systolic 68–187; BP diastolic 38–103
[2022-01-19] MEDS: IPRATROPIUM/ALBUTEROL 0.5-3(2.5)MG/3ML NEB HHN SCH ×6 (00:18→20:36)
[2022-01-19] MEDS: COLISTIMETHATE SODIUM 150MG/VIAL INH SCH ×2 (01:03→09:12)
[2022-01-19 05:58] LABS: BASOPHILS % 0.2 % (0.0-2.0); EOSINOPHILS % 1.2 % (0.0-5.0); HEMATOCRIT. 22.8 % (42.0-52.0); HEMOGLOBIN. 7.4 g/dL (14.0-18.0); LYMPHOCYTES % 11.3 % (20.0-50.0); MEAN CORPUSCULAR HEMOGLOBIN 30.5 pg (28.0-32.0); MEAN CORPUSCULAR VOLUME 94.6 fL (80.0-94.0); MEAN PLATELET VOLUME 9.6 fl (7.4-10.4); MONOCYTES % 12.8 % (2.0-8.0); NEUTROPHILS % 74.5 % (40.0-76.0); PLATELET 129 x1000/uL (130-400); RED BLOOD CELL COUNT 2.42 mill/uL (4.7-6.1); RED CELL DISTRIBUTION WIDTH 20.6 % (11.6-14.6)
[2022-01-19] MEDS: METOCLOPRAMIDE HCL 10MG/2ML VIAL IV SCH ×4 (05:59→23:34)
[2022-01-19] MEDS: VANCOMYCIN 1000MG/20ML ORAL SOLN PO SCH ×4 (05:59→23:34)
[2022-01-19 06:41] LABS: PHOSPHORUS 3.8 mg/dL (2.5-4.9)
[2022-01-19 08:11] LABS: T4 FREE 0.97 ng/dL (0.76-1.46)
[2022-01-19] MEDS: DOCUSATE SODIUM SUGAR FREE 100MG/10ML UDC PO SCH ×2 (08:41→17:09)
[2022-01-19] MEDS: PANTOPRAZOLE SODIUM 40 MG/VIAL IV SCH (08:41)
[2022-01-19] MEDS: PSYLLIUM SEED PACKET PO SCH ×3 (08:42→17:00)
[2022-01-19] MEDS: MIDODRINE HCL 5MG TABLET PO SCH ×3 (08:42→17:10)
[2022-01-19] MEDS: AMIODARONE HCL 200 MG TABLET PO SCH ×2 (08:48→22:16)
[2022-01-19] MEDS: HALOPERIDOL 0.5MG TABLET PO SCH ×2 (08:48→21:00)
[2022-01-19] MEDS: BLOOD SUGAR DIAGNOSTIC STRIP TEST SCH (09:00)
[2022-01-19] MEDS: LACTOBACILLUS GG CAPSULE PO SCH (09:00)
[2022-01-19] MEDS: PHYTONADIONE 10MG/ML AMP SUBCUT SCH (10:13)
[2022-01-19] MEDS: LEVOTHYROXINE SODIUM 100 MCG/ VIAL IV SCH (10:13)
[2022-01-19] MEDS: NOREPINEPHRINE 32 MG in DEXT 5% WATER 218 ML IV PRN (16:24)
[2022-01-19] MEDS: CEFEPIME 1,000 MG in DEXTROSE 5% WATER 50 ML IV SCH (17:09)
[2022-01-19] MEDS ORDERED: VANCOMYCIN 500MG PREMIX 100 ML IV SCH (21:00)
[2022-01-19] MEDS: FAT EMULSIONS 250 ML IV SCH (22:16)
[2022-01-19] MEDS: TOTAL PARENTERAL NUTRITION 1,200 ML IV SCH (22:19)
[2022-01-19] MEDS: PROPOFOL 10MG/ML 100ML 100 ML IV PRN (22:20)
[2022-01-20] VITALS (102 sets, daily range): BP systolic 56–129; BP diastolic 25–89
[2022-01-20] MEDS: IPRATROPIUM/ALBUTEROL 0.5-3(2.5)MG/3ML NEB HHN SCH ×6 (01:06→20:23)
[2022-01-20] MEDS: FAT EMULSIONS 250 ML IV SCH (02:22)
[2022-01-20] MEDS: PHENYLEPHRINE 100 MG in DEXT 5% WATER 240 ML IV PRN ×3 (04:05→18:37)
[2022-01-20 05:33] LABS: HEMATOCRIT. 35.7 % (42.0-52.0); HEMOGLOBIN. 12.4 g/dL (14.0-18.0); MEAN CORPUSCULAR HEMOGLOBIN 31.2 pg (28.0-32.0); MEAN CORPUSCULAR VOLUME 89.8 fL (80.0-94.0); MEAN PLATELET VOLUME 9.5 fl (7.4-10.4); PLATELET 262 x1000/uL (130-400); RED BLOOD CELL COUNT 3.98 mill/uL (4.7-6.1); RED CELL DISTRIBUTION WIDTH 18.6 % (11.6-14.6)
[2022-01-20] MEDS: METOCLOPRAMIDE HCL 10MG/2ML VIAL IV SCH ×4 (05:38→23:42)
[2022-01-20] MEDS: VANCOMYCIN 1000MG/20ML ORAL SOLN PO SCH ×4 (05:38→23:42)
[2022-01-20] MEDS: PROPOFOL 10MG/ML 100ML 100 ML IV PRN (05:40)
[2022-01-20] MEDS ORDERED: SORBITOL 70% SOLN 30ML JT SCH (06:00)
[2022-01-20] MEDS: VASOPRESSIN 20 UNIT in SODIUM CHLORIDE 0.9% 99 ML IV PRN ×2 (06:33→13:45)
[2022-01-20] MEDS: NOREPINEPHRINE 32 MG in DEXT 5% WATER 218 ML IV PRN ×3 (07:04→20:08)
[2022-01-20 08:27] LABS: BG BASE EXCESS -0.5 mmol/L (-2.0-2.0); BG DEOXYHEMOGLOBIN 3.8 % (0.0-5.0); BG FRACTION INSPIRED OXYGEN 100; BG HCO3 ACT 24.5 mmol/L (22.0-26.0); BG METHEMOGLOBIN 0.1 % (0.0-1.5); BG OXYGEN SATURATION 96.2 % (92.0-98.5); BG OXYHEMOGLOBIN 95.1 % (94.0-97.0); BG PCO2 41.6 mmHg (35.0-45.0); BG PH 7.388 (7.350-7.450); BG PO2 85.6 mmHg (75.0-100.0); BG SAMPLE SITE LEFT RADIAL; BG TOTAL HEMOGLOBIN 12.4 g/dL (12.0-18.0); BG VENT MODE VENT - AC
[2022-01-20] MEDS: DOCUSATE SODIUM SUGAR FREE 100MG/10ML UDC PO SCH ×2 (08:35→18:17)
[2022-01-20] MEDS: HALOPERIDOL 0.5MG TABLET PO SCH ×2 (08:36→20:21)
[2022-01-20] MEDS: PSYLLIUM SEED PACKET PO SCH ×3 (08:36→17:00)
[2022-01-20] MEDS: LACTOBACILLUS GG CAPSULE PO SCH (08:36)
[2022-01-20] MEDS: BLOOD SUGAR DIAGNOSTIC STRIP TEST SCH (09:00)
[2022-01-20] MEDS: PANTOPRAZOLE SODIUM 40 MG/VIAL IV SCH (09:00)
[2022-01-20] MEDS ORDERED: VECURONIUM BROMIDE 10 MG/VIAL IV ONE (09:00)
[2022-01-20] MEDS ORDERED: ETOMIDATE 2MG/ML 10ML VIAL IV ONE (09:00)
[2022-01-20] MEDS: MIDODRINE HCL 5MG TABLET PO SCH ×3 (09:40→18:17)
[2022-01-20] MEDS: LEVOTHYROXINE SODIUM 100 MCG/ VIAL IV SCH (09:40)
[2022-01-20] MEDS: AMIODARONE HCL 200 MG TABLET PO SCH ×2 (09:40→20:21)
[2022-01-20] MEDS: COLISTIMETHATE SODIUM 150MG/VIAL INH SCH ×2 (09:49→20:23)
[2022-01-20] MEDS ORDERED: MIDAZOLAM 100MG/100ML PREMIX IV PRN (13:30)
[2022-01-20] MEDS ORDERED: MIDAZOLAM HCL 100 MG in SODIUM CHLORIDE 0.9% 80 ML IV PRN (13:30)
[2022-01-20] MEDS: CEFEPIME 1,000 MG in DEXTROSE 5% WATER 50 ML IV SCH (15:21)
[2022-01-20 17:39] LABS: BG BASE EXCESS -1.5 mmol/L (-2.0-2.0); BG CARBOXYHEMOGLOBIN 0.1 % (0.5-1.5); BG DEOXYHEMOGLOBIN 9.4 % (0.0-5.0); BG FRACTION INSPIRED OXYGEN 100; BG HCO3 ACT 24.4 mmol/L (22.0-26.0); BG METHEMOGLOBIN 0.3 % (0.0-1.5); BG OXYGEN SATURATION 90.6 % (92.0-98.5); BG OXYHEMOGLOBIN 90.2 % (94.0-97.0); BG PCO2 46.1 mmHg (35.0-45.0); BG PH 7.342 (7.350-7.450); BG PO2 62.5 mmHg (75.0-100.0); BG SAMPLE SITE RIGHT RADIAL; BG TOTAL HEMOGLOBIN 11.1 g/dL (12.0-18.0); BG VENT MODE VENT - AC
[2022-01-20] MEDS: AZITHROMYCIN 500 MG in DEXT 5% WATER 250 ML IV SCH (18:40)
[2022-01-20] MEDS: LINEZOLID 600 MG PREMIX 300 ML IV SCH (20:11)
[2022-01-20] MEDS: TOTAL PARENTERAL NUTRITION 1,200 ML IV SCH (21:00)
[2022-01-20 21:01] LABS: PLATELET ESTIMATE NORMAL
[2022-01-20] MEDS: EPOETIN ALFA 4000UNITS/ML VIAL SUBCUT SCH (21:52)
[2022-01-21] VITALS (98 sets, daily range): BP systolic 53–150; BP diastolic 19–83
[2022-01-21] MEDS: IPRATROPIUM/ALBUTEROL 0.5-3(2.5)MG/3ML NEB HHN SCH (00:42)
[2022-01-21] MEDS: VASOPRESSIN 20 UNIT in SODIUM CHLORIDE 0.9% 99 ML IV PRN ×2 (01:37→12:41)
[2022-01-21] MEDS: PHENYLEPHRINE 100 MG in DEXT 5% WATER 240 ML IV PRN ×3 (01:37→16:22)
[2022-01-21] MEDS: NOREPINEPHRINE 32 MG in DEXT 5% WATER 218 ML IV PRN ×4 (03:28→22:25)
[2022-01-21 05:47] LABS: HEMATOCRIT. 32.4 % (42.0-52.0); HEMOGLOBIN. 10.4 g/dL (14.0-18.0); MEAN CORPUSCULAR HEMOGLOBIN 29.3 pg (28.0-32.0); MEAN CORPUSCULAR VOLUME 91.9 fL (80.0-94.0); MEAN PLATELET VOLUME 9.8 fl (7.4-10.4); PLATELET 187 x1000/uL (130-400); RED BLOOD CELL COUNT 3.53 mill/uL (4.7-6.1); RED CELL DISTRIBUTION WIDTH 19.5 % (11.6-14.6)
[2022-01-21] MEDS: VANCOMYCIN 1000MG/20ML ORAL SOLN PO SCH ×3 (06:01→17:33)
[2022-01-21] MEDS: LINEZOLID 600 MG PREMIX 300 ML IV SCH ×2 (06:01→17:32)
[2022-01-21] MEDS: METOCLOPRAMIDE HCL 10MG/2ML VIAL IV SCH ×3 (06:01→17:31)
[2022-01-21] MEDS ORDERED: INSULIN REGULAR (HUMULIN R) 300UNITS/3ML VIAL IV NR ×2 (06:44→19:45)
[2022-01-21] MEDS ORDERED: SODIUM BICARBONATE 8.4% 1 MEQ/ML 50ML SYR IV NR ×2 (06:44→19:45)
[2022-01-21] MEDS ORDERED: DEXTROSE 50% WATER 50ML SYRINGE IV NR ×2 (06:44→19:45)
[2022-01-21] MEDS ORDERED: SODIUM POLYSTYRENE SULFONATE 15 G/60 ML BOT PO NR ×2 (06:45→19:15)
[2022-01-21] MEDS: COLISTIMETHATE SODIUM 150MG/VIAL INH SCH ×2 (07:48→20:14)
[2022-01-21] MEDS: BLOOD SUGAR DIAGNOSTIC STRIP TEST SCH (08:33)
[2022-01-21] MEDS ORDERED: CALCIUM CHLORIDE 1,000 MG in DEXT 5% WATER 90 ML IV NR (09:00)
[2022-01-21] MEDS: DOCUSATE SODIUM SUGAR FREE 100MG/10ML UDC PO SCH (09:00)
[2022-01-21] MEDS: SODIUM BICARBONATE 100 MEQ in SODIUM CHLORIDE 0.45% 1,000 ML IV SCH (09:04)
[2022-01-21 09:05] LABS: BG BASE EXCESS -5.4 mmol/L (-2.0-2.0); BG CARBOXYHEMOGLOBIN 0.4 % (0.5-1.5); BG DEOXYHEMOGLOBIN 3.8 % (0.0-5.0); BG FRACTION INSPIRED OXYGEN 100; BG HCO3 ACT 21.4 mmol/L (22.0-26.0); BG METHEMOGLOBIN 0.3 % (0.0-1.5); BG OXYGEN SATURATION 96.2 % (92.0-98.5); BG OXYHEMOGLOBIN 95.5 % (94.0-97.0); BG PCO2 47.5 mmHg (35.0-45.0); BG PH 7.272 (7.350-7.450); BG PO2 95.9 mmHg (75.0-100.0); BG SAMPLE SITE RIGHT RADIAL; BG TOTAL HEMOGLOBIN 11.3 g/dL (12.0-18.0); BG VENT MODE VENT - AC
[2022-01-21] MEDS: LACTOBACILLUS GG CAPSULE PO SCH (09:05)
[2022-01-21] MEDS: PSYLLIUM SEED PACKET PO SCH ×3 (09:05→17:31)
[2022-01-21] MEDS: AMIODARONE HCL 200 MG TABLET PO SCH ×3 (09:05→21:42)
[2022-01-21] MEDS: MIDODRINE HCL 5MG TABLET PO SCH ×3 (09:05→17:31)
[2022-01-21] MEDS: HALOPERIDOL 0.5MG TABLET PO SCH ×2 (09:05→21:00)
[2022-01-21] MEDS: PANTOPRAZOLE SODIUM 40 MG/VIAL IV SCH (09:08)
[2022-01-21] MEDS: LEVOTHYROXINE SODIUM 100 MCG/ VIAL IV SCH (09:12)
[2022-01-21] MEDS: ACETAMINOPHEN 650MG/20.3ML UDC PO PRN (10:29)
[2022-01-21] MEDS ORDERED: ACETAMINOPHEN 650MG/20.3ML UDC PO PRN (11:00)
[2022-01-21] MEDS: DOPAMINE 800MG PREMIX (DOUBLE) 250 ML IV PRN ×2 (11:14→20:10)
[2022-01-21] MEDS ORDERED: MIDODRINE HCL 5MG TABLET PO SCH (13:00)
[2022-01-21 13:25] LABS: PLATELET ESTIMATE NORMAL
[2022-01-21] MEDS: CEFEPIME 1,000 MG in DEXTROSE 5% WATER 50 ML IV SCH (15:45)
[2022-01-21] MEDS: AZITHROMYCIN 500 MG in DEXT 5% WATER 250 ML IV SCH (17:32)
[2022-01-21] MEDS ORDERED: CALCIUM CHLORIDE 2,000 MG in DEXT 5% WATER 80 ML IV NR (20:30)
[2022-01-21] MEDS: LEVETIRACETAM 500MG TABLET PO SCH ×2 (21:00→21:42)
[2022-01-21] MEDS: TOTAL PARENTERAL NUTRITION 1,200 ML IV SCH (21:39)
[2022-01-22] VITALS (94 sets, daily range): BP systolic 50–180; BP diastolic 19–87
[2022-01-22] MEDS: VANCOMYCIN 1000MG/20ML ORAL SOLN PO SCH ×5 (00:07→23:28)
[2022-01-22] MEDS: METOCLOPRAMIDE HCL 10MG/2ML VIAL IV SCH ×5 (00:07→23:27)
[2022-01-22] MEDS: PHENYLEPHRINE 100 MG in DEXT 5% WATER 240 ML IV PRN ×3 (00:09→14:53)
[2022-01-22] MEDS: VASOPRESSIN 20 UNIT in SODIUM CHLORIDE 0.9% 99 ML IV PRN ×4 (00:10→23:54)
[2022-01-22] MEDS: LINEZOLID 600 MG PREMIX 300 ML IV SCH ×2 (05:05→17:05)
[2022-01-22] MEDS: NOREPINEPHRINE 32 MG in DEXT 5% WATER 218 ML IV PRN ×3 (05:07→18:56)
[2022-01-22] MEDS: DOPAMINE 800MG PREMIX (DOUBLE) 250 ML IV PRN ×2 (05:08→20:56)
[2022-01-22 05:58] LABS: INR 1.3; PROTHROMBIN TIME 13.5 sec (9.6-11.0)
[2022-01-22] MEDS ORDERED: DEXTROSE 50% WATER 50ML SYRINGE IV PRN (07:00)
[2022-01-22] MEDS ORDERED: DEXTROSE 50% WATER 50ML SYRINGE IV NR (07:30)
[2022-01-22] MEDS ORDERED: INSULIN REGULAR (HUMULIN R) 300UNITS/3ML VIAL IV NR (07:30)
[2022-01-22] MEDS ORDERED: SODIUM BICARBONATE 8.4% 1 MEQ/ML 50ML SYR IV NR (07:30)
[2022-01-22] MEDS ORDERED: SODIUM POLYSTYRENE SULFONATE 15 G/60 ML BOT PO NR (07:30)
[2022-01-22] MEDS: COLISTIMETHATE SODIUM 150MG/VIAL INH SCH ×2 (07:42→22:24)
[2022-01-22] MEDS ORDERED: SODIUM CHLORIDE IV NR (08:00)
[2022-01-22] MEDS ORDERED: CALCIUM CHLORIDE 1,000 MG in DEXT 5% WATER 90 ML IV NR (08:00)
[2022-01-22] MEDS: PSYLLIUM SEED PACKET PO SCH ×3 (08:15→16:57)
[2022-01-22] MEDS: HALOPERIDOL 0.5MG TABLET PO SCH ×2 (08:15→20:57)
[2022-01-22] MEDS: MIDODRINE HCL 5MG TABLET PO SCH ×3 (08:15→16:57)
[2022-01-22] MEDS: AMIODARONE HCL 200 MG TABLET PO SCH (08:15)
[2022-01-22] MEDS: LEVETIRACETAM 500MG TABLET PO SCH ×2 (08:15→20:56)
[2022-01-22] MEDS: LACTOBACILLUS GG CAPSULE PO SCH (08:15)
[2022-01-22 09:18] LABS: HEMATOCRIT. 21.4 % (42.0-52.0); MEAN CORPUSCULAR HEMOGLOBIN 29.9 pg (28.0-32.0); MEAN CORPUSCULAR VOLUME 94.7 fL (80.0-94.0); MEAN PLATELET VOLUME 10.2 fl (7.4-10.4); PLATELET 81 x1000/uL (130-400); RED BLOOD CELL COUNT 2.26 mill/uL (4.7-6.1); RED CELL DISTRIBUTION WIDTH 19.9 % (11.6-14.6)
[2022-01-22 09:27] LABS: BG BASE EXCESS -1.8 mmol/L (-2.0-2.0); BG CARBOXYHEMOGLOBIN 0.7 % (0.5-1.5); BG DEOXYHEMOGLOBIN 0.8 % (0.0-5.0); BG METHEMOGLOBIN 0.3 % (0.0-1.5); BG OXYGEN SATURATION 99.2 % (92.0-98.5); BG OXYHEMOGLOBIN 98.2 % (94.0-97.0); BG PCO2 62.9 mmHg (35.0-45.0); BG PH 7.235 (7.350-7.450); BG PO2 228.3 mmHg (75.0-100.0); BG SAMPLE SITE RIGHT RADIAL; BG TOTAL HEMOGLOBIN 8.5 g/dL (12.0-18.0); BG VENT MODE VENT - AC
[2022-01-22 09:40] LABS: HEMOGLOBIN. 6.8 g/dL (14.0-18.0)
[2022-01-22] MEDS: BLOOD SUGAR DIAGNOSTIC STRIP TEST SCH (09:40)
[2022-01-22] MEDS: LEVOTHYROXINE SODIUM 100 MCG/ VIAL IV SCH (09:47)
[2022-01-22] MEDS: SODIUM BICARBONATE 100 MEQ in SODIUM CHLORIDE 0.45% 1,000 ML IV SCH (11:08)
[2022-01-22] MEDS: ACETAMINOPHEN 650MG/20.3ML UDC PO PRN (11:10)
[2022-01-22 13:45] LABS: NUCLEATED RED BLOOD CELLS 5 /100 WBC; PLATELET ESTIMATE DECREASED
[2022-01-22] MEDS: CEFEPIME 1,000 MG in DEXTROSE 5% WATER 50 ML IV SCH (16:57)
[2022-01-22] MEDS: AZITHROMYCIN 500 MG in DEXT 5% WATER 250 ML IV SCH (17:05)
[2022-01-22] MEDS: EPOETIN ALFA 4000UNITS/ML VIAL SUBCUT SCH (20:56)
[2022-01-22] MEDS: FAT EMULSIONS 250 ML IV SCH (20:56)
[2022-01-22] MEDS: TOTAL PARENTERAL NUTRITION 1,200 ML IV SCH (20:58)
[2022-01-23] VITALS (32 sets, daily range): BP systolic 59–203; BP diastolic 20–63
[2022-01-23] MEDS: FAT EMULSIONS 250 ML IV SCH (00:46)
[2022-01-23] MEDS: PHENYLEPHRINE 100 MG in DEXT 5% WATER 240 ML IV PRN ×2 (00:48→04:33)
[2022-01-23] MEDS: NOREPINEPHRINE 32 MG in DEXT 5% WATER 218 ML IV PRN (02:04)
[2022-01-23] MEDS: METOCLOPRAMIDE HCL 10MG/2ML VIAL IV SCH (05:22)
[2022-01-23] MEDS: LINEZOLID 600 MG PREMIX 300 ML IV SCH (05:22)
[2022-01-23] MEDS: VANCOMYCIN 1000MG/20ML ORAL SOLN PO SCH (05:36)
[2022-01-23] MEDS ORDERED: DEXT 10% WATER 1,000 ML IV SCH (07:00)
[2022-01-26] MEDS ORDERED: FAT EMULSIONS 500 ML IV SCH (21:00)
== END 2022-01-23 12:35 | DRG 466 ==
LOC: ER 11:59 → EDBD 11:59 → EDBEDREQ 13:51 → 6EST 14:41 → EDBEDREQTM 14:53 → EDBEDREQ 14:53 → EDBEDREQSVC 14:53 → ENRESERV 15:16 → CANRESERV 15:16 → ENRESERV 15:22 → CANRESERV 15:22 → ENRESERV 15:24 → 6EST 11-23 19:28 → 7WST 12-03 16:51 → CVICU 12-03 22:29 → 7WST 12-03 22:41 → CVICU 12-04 00:27 → 5EST 12-05 05:30 → 8WST 12-07 11:46 → 6EST 12-09 15:51 → MICUNO 12-22 12:08 → MICUSO 12-29 11:00 → CVICU 01-12 20:02
PROVIDERS: ADMIT Internal Medicine; ATTEND Internal Medicine
PROC: 0T2BX0Z Change Drainage Device in Bladder, External Approach (ICD-10-PCS; 2021-11-18)
PROC: 0T2BX0Z Change Drainage Device in Bladder, External Approach (ICD-10-PCS; 2021-11-19)
PROC: 5A1D70Z Performance of Urinary Filtration, Intermittent, Less than 6 Hours Per Day (ICD-10-PCS; 2021-11-19)
PROC: 5A1D70Z Performance of Urinary Filtration, Intermittent, Less than 6 Hours Per Day (ICD-10-PCS; 2021-11-21)
PROC: 5A1D70Z Performance of Urinary Filtration, Intermittent, Less than 6 Hours Per Day (ICD-10-PCS; 2021-11-24)
PROC: 5A1D70Z Performance of Urinary Filtration, Intermittent, Less than 6 Hours Per Day (ICD-10-PCS; 2021-11-26)
PROC: 5A1D70Z Performance of Urinary Filtration, Intermittent, Less than 6 Hours Per Day (ICD-10-PCS; 2021-11-28)
PROC: 5A1D70Z Performance of Urinary Filtration, Intermittent, Less than 6 Hours Per Day (ICD-10-PCS; 2021-12-01)
PROC: 0T9B30Z Drainage of Bladder with Drainage Device, Percutaneous Approach (ICD-10-PCS; 2021-12-02)
PROC: 5A1D70Z Performance of Urinary Filtration, Intermittent, Less than 6 Hours Per Day (ICD-10-PCS; 2021-12-03)
PROC: 30233N1 Transfusion of Nonautologous Red Blood Cells into Peripheral Vein, Percutaneous Approach (ICD-10-PCS; 2021-12-05)
PROC: 5A1D70Z Performance of Urinary Filtration, Intermittent, Less than 6 Hours Per Day (ICD-10-PCS; 2021-12-05)
PROC: 5A1D70Z Performance of Urinary Filtration, Intermittent, Less than 6 Hours Per Day (ICD-10-PCS; 2021-12-08)
PROC: 0JH63XZ Insertion of Tunneled Vascular Access Device into Chest Subcutaneous Tissue and Fascia, Percutaneous Approach (ICD-10-PCS; 2021-12-10)
PROC: 02HV33Z Insertion of Infusion Device into Superior Vena Cava, Percutaneous Approach (ICD-10-PCS; 2021-12-10)
PROC: B518ZZA Fluoroscopy of Superior Vena Cava, Guidance (ICD-10-PCS; 2021-12-10)
PROC: B548ZZA Ultrasonography of Superior Vena Cava, Guidance (ICD-10-PCS; 2021-12-10)
PROC: 5A1D70Z Performance of Urinary Filtration, Intermittent, Less than 6 Hours Per Day (ICD-10-PCS; 2021-12-10)
PROC: 5A1D70Z Performance of Urinary Filtration, Intermittent, Less than 6 Hours Per Day (ICD-10-PCS; 2021-12-12)
PROC: 0JH63XZ Insertion of Tunneled Vascular Access Device into Chest Subcutaneous Tissue and Fascia, Percutaneous Approach (ICD-10-PCS; 2021-12-16)
PROC: 02H633Z Insertion of Infusion Device into Right Atrium, Percutaneous Approach (ICD-10-PCS; 2021-12-16)
PROC: B518ZZA Fluoroscopy of Superior Vena Cava, Guidance (ICD-10-PCS; 2021-12-16)
PROC: B548ZZA Ultrasonography of Superior Vena Cava, Guidance (ICD-10-PCS; 2021-12-16)
PROC: 5A1D70Z Performance of Urinary Filtration, Intermittent, Less than 6 Hours Per Day (ICD-10-PCS; 2021-12-16)
PROC: 5A1D70Z Performance of Urinary Filtration, Intermittent, Less than 6 Hours Per Day (ICD-10-PCS; 2021-12-18)
PROC: 5A1D70Z Performance of Urinary Filtration, Intermittent, Less than 6 Hours Per Day (ICD-10-PCS; 2021-12-20)
PROC: 02HV33Z Insertion of Infusion Device into Superior Vena Cava, Percutaneous Approach (ICD-10-PCS; 2021-12-22)
PROC: B548ZZA Ultrasonography of Superior Vena Cava, Guidance (ICD-10-PCS; 2021-12-22)
PROC: 5A1D70Z Performance of Urinary Filtration, Intermittent, Less than 6 Hours Per Day (ICD-10-PCS; 2021-12-22)
PROC: 5A1955Z Respiratory Ventilation, Greater than 96 Consecutive Hours (ICD-10-PCS; principal; 2021-12-24)
PROC: 0BH17EZ Insertion of Endotracheal Airway into Trachea, Via Natural or Artificial Opening (ICD-10-PCS; 2021-12-24)
PROC: 5A1D70Z Performance of Urinary Filtration, Intermittent, Less than 6 Hours Per Day (ICD-10-PCS; 2021-12-24)
PROC: 5A1D70Z Performance of Urinary Filtration, Intermittent, Less than 6 Hours Per Day (ICD-10-PCS; 2021-12-26)
PROC: 5A1D70Z Performance of Urinary Filtration, Intermittent, Less than 6 Hours Per Day (ICD-10-PCS; 2021-12-28)
PROC: 4A10X4Z Monitoring of Central Nervous Electrical Activity, External Approach (ICD-10-PCS; 2021-12-30)
PROC: 5A1D70Z Performance of Urinary Filtration, Intermittent, Less than 6 Hours Per Day (ICD-10-PCS; 2021-12-30)
PROC: 5A1D70Z Performance of Urinary Filtration, Intermittent, Less than 6 Hours Per Day (ICD-10-PCS; 2022-01-01)
PROC: 5A1D70Z Performance of Urinary Filtration, Intermittent, Less than 6 Hours Per Day (ICD-10-PCS; 2022-01-04)
PROC: 5A1D70Z Performance of Urinary Filtration, Intermittent, Less than 6 Hours Per Day (ICD-10-PCS; 2022-01-06)
PROC: 5A1D70Z Performance of Urinary Filtration, Intermittent, Less than 6 Hours Per Day (ICD-10-PCS; 2022-01-08)
PROC: 3E0336Z Introduction of Nutritional Substance into Peripheral Vein, Percutaneous Approach (ICD-10-PCS; 2022-01-09)
PROC: 5A1D70Z Performance of Urinary Filtration, Intermittent, Less than 6 Hours Per Day (ICD-10-PCS; 2022-01-10)
PROC: 5A09357 Assistance with Respiratory Ventilation, Less than 24 Consecutive Hours, Continuous Positive Airway Pressure (ICD-10-PCS; 2022-01-12)
PROC: 5A1D70Z Performance of Urinary Filtration, Intermittent, Less than 6 Hours Per Day (ICD-10-PCS; 2022-01-12)
PROC: 0DHA0UZ Insertion of Feeding Device into Jejunum, Open Approach (ICD-10-PCS; 2022-01-13)
PROC: 0W9G3ZZ Drainage of Peritoneal Cavity, Percutaneous Approach (ICD-10-PCS; 2022-01-13)
PROC: 5A1955Z Respiratory Ventilation, Greater than 96 Consecutive Hours (ICD-10-PCS; 2022-01-13)
PROC: 5A1D70Z Performance of Urinary Filtration, Intermittent, Less than 6 Hours Per Day (ICD-10-PCS; 2022-01-14)
PROC: 5A1D70Z Performance of Urinary Filtration, Intermittent, Less than 6 Hours Per Day (ICD-10-PCS; 2022-01-15)
PROC: 5A1D70Z Performance of Urinary Filtration, Intermittent, Less than 6 Hours Per Day (ICD-10-PCS; 2022-01-17)
PROC: 0BH17EZ Insertion of Endotracheal Airway into Trachea, Via Natural or Artificial Opening (ICD-10-PCS; 2022-01-19)
PROC: 5A1D70Z Performance of Urinary Filtration, Intermittent, Less than 6 Hours Per Day (ICD-10-PCS; 2022-01-19)
DX: T83.518A Infection and inflammatory reaction due to other urinary catheter, initial encounter (principal); A41.02 Sepsis due to Methicillin resistant Staphylococcus aureus; J96.01 Acute respiratory failure with hypoxia; R65.21 Severe sepsis with septic shock; A41.81 Sepsis due to Enterococcus; G92.8 Other toxic encephalopathy; J69.0 Pneumonitis due to inhalation of food and vomit; K51.00 Ulcerative (chronic) pancolitis without complications; N39.0 Urinary tract infection, site not specified; K56.7 Ileus, unspecified; E43 Unspecified severe protein-calorie malnutrition; D69.6 Thrombocytopenia, unspecified; D68.9 Coagulation defect, unspecified; R18.8 Other ascites; I12.0 Hypertensive chronic kidney disease with stage 5 chronic kidney disease or end stage renal disease; N18.6 End stage renal disease; Z91.15 Patient's noncompliance with renal dialysis; N31.9 Neuromuscular dysfunction of bladder, unspecified; B96.5 Pseudomonas (aeruginosa) (mallei) (pseudomallei) as the cause of diseases classified elsewhere; D53.9 Nutritional anemia, unspecified; E16.2 Hypoglycemia, unspecified; E78.1 Pure hyperglyceridemia; E87.1 Hypo-osmolality and hyponatremia; I48.0 Paroxysmal atrial fibrillation; E87.5 Hyperkalemia; E87.70 Fluid overload, unspecified; Z66 Do not resuscitate; N20.0 Calculus of kidney; F20.9 Schizophrenia, unspecified; Y84.8 Other medical procedures as the cause of abnormal reaction of the patient, or of later complication, without mention of misadventure at the time of the procedure; E87.6 Hypokalemia; D50.9 Iron deficiency anemia, unspecified; Z20.822 Contact with and (suspected) exposure to COVID-19; L89.156 Pressure-induced deep tissue damage of sacral region; R13.12 Dysphagia, oropharyngeal phase; R74.01 Elevation of levels of liver transaminase levels; K31.84 Gastroparesis; E03.9 Hypothyroidism, unspecified; F41.9 Anxiety disorder, unspecified; Z78.1 Physical restraint status; Z99.2 Dependence on renal dialysis; Z59.00 Homelessness unspecified; Z68.28 Body mass index [BMI] 28.0-28.9, adult; Y92.89 Other specified places as the place of occurrence of the external cause
CPT/HCPCS: 31500; 36415; 36558; 36573; 36600; 70551; 71045; 71250; 71260; 74018; 74176; 74177; 74250; 76700; 76705; 76937; 77001; 80048; 80053; 80061; 80076; 80170; 80202; 81003; 82140; 82248; 82375; 82378; 82465; 82533; 82550; 82607; 82728; 82746; 82805; 82962; 83525; 83540; 83550; 83605; 83735; 83930; 84100; 84132; 84134; 84145; 84206; 84439; 84443; 84478; 84481; 84484; 84550; 84681; 85014; 85018; 85025; 85044; 85379; 85384; 86337; 86376; 86705; 86706; 86709; 86803; 86850; 86900; 86920; 87070; 87075; 87077; 87186; 87340; 87426; 88108; 88312; 92610; 93005; 93306; 93970; 94002; 94003; 94640; 94660; 94667; 95816; 97161; 97164; 99285; C1725; C1750; C1769; C1887; C1893; C9113; G0378; J0330; J0456; J0690; J0692; J0696; J0770; J0885; J1200; J1265; J1580; J1630; J1644; J1815; J2020; J2060; J2250; J2370; J2680; J2704; J2765; J2997; J3010; J3370; J3430; J3480; J3490; J7030; J7040; J7042; J7050; J7060; J7131; J7608; L8514; P9016; P9047; Q9963; Q9967; U0003; U0005; A4315